=== PATIENT | male | born 1945 | race Caucasian/White ===

== ENCOUNTER 2016-07-28 23:50 | Inpatient (IN) | payer MEDICARE, OTHER ==
[~2016-07-28] VITALS: Ht 195.6 cm; Wt 127.0 kg
[~2016-07-28 23:50] MED LIST: ASPI-727; CILO100T; INSU100C3; INSU100C5; METO-448; VICES
[2016-07-29] VITALS (12 sets, daily range): BP systolic 106–136; BP diastolic 59–67; PULSE 36–54; RESP 18–22; TEMP 97.4; Ht 195.6 cm; Wt 127.0 kg
[2016-07-29 00:57] LABS: ADD SCAN DIFF NO
[2016-07-29 00:58] LABS: BASOPHILS % 0.5 % (0.0-2.0); EOSINOPHILS # 0.1 10^3/ul (0.0-0.5); EOSINOPHILS % 1.8 % (0.0-7.0); HEMATOCRIT 43.5 % (42.0-52.0); HEMOGLOBIN 13.6 g/dl (14.0-18.0); LYMPHOCYTES # 1.7 10^3/ul (0.8-2.9); LYMPHOCYTES % 30.5 % (15.0-51.0); MEAN CORPUSCULAR HEMOGLOBIN 31.2 pg (29.0-33.0); MEAN CORPUSCULAR HGB CONC 31.3 g/dl (32.0-37.0); MEAN CORPUSCULAR VOLUME 99.8 fl (82.0-101.0); MEAN PLATELET VOLUME 12.2 fl (7.4-10.4); MONOCYTE # 0.5 10^3/ul (0.3-0.9); MONOCYTES % 9.1 % (0.0-11.0); NEUTROPHIL # 3.3 10^3/ul (1.6-7.5); NEUTROPHILS % 57.7 % (39.0-77.0); PLATELET COUNT 164 10^3/UL (140-415); RED BLOOD COUNT 4.36 10^6/ul (4.70-6.10); RED CELL DISTRIBUTION WIDTH 14.6 % (11.5-14.5); WHITE BLOOD COUNT 5.7 10^3/ul (4.8-10.8)
[2016-07-29] MEDS ORDERED: ACET650S21 G-TUBE (01:04)
[2016-07-29] MEDS ORDERED: VALP250S3 GTB (01:04)
[2016-07-29] MEDS ORDERED: MIDO5TAB19 G-TUBE (01:04)
[2016-07-29] MEDS ORDERED: LEVO175T6 G-TUBE (01:04)
[2016-07-29] MEDS ORDERED: DOCU-159 G-TUBE (01:04)
[2016-07-29] MEDS ORDERED: TRAV4OP25 BOTH EYES (01:04)
[2016-07-29] MEDS ORDERED: BRIM10DR12 BOTH EYES (01:04)
[2016-07-29] MEDS ORDERED: SENN-36 G-TUBE (01:04)
[2016-07-29 01:15] LABS: INR 0.99; PARTIAL THROMBOPLASTIN TIME 29.2 Sec (25.0-35.0); PROTIME 13.1 Sec (12.2-14.2)
[2016-07-29 01:17] LABS: ALBUMIN 3.8 g/dl (3.3-4.9); CHLORIDE 107 mmol/L (97-110)
[2016-07-29 01:18] LABS: POTASSIUM 4.3 mmol/L (3.5-5.1); SODIUM 144 mmol/L (135-144)
[2016-07-29 01:20] LABS: ALBUMIN/GLOBULIN RATIO 0.84; ALKALINE PHOSPHATASE 84 IU/L (42-121); ANION GAP 17 (8-16); ASPARTATE AMINO TRANSFERASE 32 IU/L (15-46); BILIRUBIN,INDIRECT 0.5 mg/dl (0-1.1); BILIRUBIN,TOTAL 0.5 mg/dl (0.2-1.3); BLOOD UREA NITROGEN 26 mg/dl (7-20); CARBON DIOXIDE 24 mmol/L (21-31); CREATININE 0.78 mg/dl (0.61-1.24); GLUCOSE 90 mg/dl (70-220); TOTAL PROTEIN 8.3 g/dl (6.1-8.1)
[2016-07-29 01:21] LABS: ALANINE AMINOTRANSFERASE 39 IU/L (13-69); CALCIUM 9.4 mg/dl (8.4-10.2)
[2016-07-29 01:31] LABS: B-TYPE NATRIURETIC PEPTIDE 503 PG/ML (0-125)
[2016-07-29 01:44] LABS: TROPONIN-I < 0.012 ng/ml (0.00-0.12)
[2016-07-29 01:47] LABS: AADO2 Arterial 144.1 mmHg (7.0-24.0); Allen Test ACCEPTAB; Arterial Base Excess -2.2 mmol/L (-3.0-3); Arterial COHb 0.1 % (0.0-3.0); Arterial Fraction of Oxyhgb 97.4 % (93.0-99.0); Arterial HCO3 20.8 mmol/L (22.0-26.0); Arterial MetHb 0.3 % (0.0-1.5); Arterial Total Hemglobin 14.6 g/dl (12.0-18.0); MODE VENT - AC
--- NOTE | 2016-07-29 01:55 | RADRPT ---
PROCEDURE: XR Chest. CLINICAL INDICATION: Chest pain. TECHNIQUE: Single frontal chest x-ray. COMPARISON: None. FINDINGS: Tracheostomy tube tip is just above the level of the clavicles. Heart is enlarged.. There is hypov entilation. There is right greater than left basilar atelectasis versus infiltrate.. There are prob able calcified nodule/granulomas in the left upper lobe. There is no pleural effusion. There is no pneumothorax. The osseous structures are unremarkable. IMPRESSION: Cardiomegaly. Hypoventilation. Right greater than left basilar atelectasis versus infiltrate. Pr obable left upper lobe calcified granulomas. RPTAT: HMVK .Hira Arias MD, MD Date Time Electronically viewed and signed by .Hira Arias MD, on 07/29/2016 01:55 .K/
--- NOTE | 2016-07-29 02:25 | ERA ---
ER Documentation Chief Complaint Date/Time DATE: 07/29/16 TIME: 02:23 Chief Complaint SENT BY [facility] FOR NEW ONSET AFIB W/BRADYCARDIA HPI This is a 71-year-old male trach to vent patient is [facility] for new onset atrial fibrillation with bradycardia. According to transfer sheet, they noticed irregular heart rate. Got they acquire an EKG which showed this rhythm. Patient himself cannot provide any relevant history. History is per EMS run sheet. ROS All systems reviewed and are negative except as per history of present illness. Medications Home Meds Reported Medications Acetaminophen (MAPAP) 650 Mg/20.3 Ml Solution, G-TUBE Q6H for PAIN 07/29/16 Midodrine* (Midodrine*) 5 Mg Tablet, 5 MG G-TUBE TID for HYPOTENSION, TAB HOLD SBP > 120 07/29/16 Brimonidine Tartrate* (Brimonidine Tartrate*) 0.15%-10ML Drop Opht, 1 DROP BOTH EYES Q8 for GLAUCOMA, #1 EA INSTILL ONE DROP ON BOTH EYES 07/29/16 Levothyroxine Sodium* (Levothyroxine Sodium*) 175 Mcg Tablet, 175 MCG G-TUBE BEFORE BREAKFAST for HYPOTHYROIDISM, #30 TAB 07/29/16 Valproic Acid* (Depakene*) 250 Mg/5 Ml Udc Syrup, 500 MG GTB Q12 for SEIZURE DISORDER, ML 07/29/16 Sennosides* (Senokot*) 8.6 Mg Tablet, 1 TAB G-TUBE QHS for SLUGGISH BOWEL, TAB 07/29/16 Travoprost* (Travatan*) 0.004%-2.5 Ml Opht, 1 DROP BOTH EYES QHS for GLAUCOMA, # 1 BOTTLE 07/29/16 Docusate Sodium* (Docusate Sodium*) 100 Mg Capsule, 100 MG G-TUBE DAILY for SLUGGISH BOWEL, #30 CAP 07/29/16 Aspirin (Adult Aspirin) 81 Mg Tab.chew 07/12/10 Acetaminophen/Hydrocodone (Vicodin Es) 1 Tab Tab 07/12/10 Discontinued Reported Medications Insulin Aspart (Novolog) 100 U/Ml Cartridge 07/12/10 Insulin Glargine,Hum.rec.anlog (Lantus) 100 U/Ml Cartridge 07/12/10 Cilostazol* (Cilostazol*) 100 Mg Tablet 07/12/10 Metoprolol Tartrate* (Lopressor*) 25 Mg Tab 07/12/10 Allergies Allergies: Coded Allergies: No Known Drug Allergies (Verified Allergy, Unknown, 07/29/16) PMhx/Soc History of Surgery: Yes (FEEDING TUBE PLACEMENT) Anesthesia Reaction: No (UNKNOWN) Hx Neurological Disorder: Yes (CVA) Hx Respiratory Disorders: Yes (COPD) Hx Cardiac Disorders: No Hx Psychiatric Problems: Yes (DEMENTIA, PSYCHOSIS, DEPRESSION) Hx Miscellaneous Medical Probl: Yes (SEPTIC SHOCK AND ANEMIA) Hx Alcohol Use: No Hx Substance Use: No Hx Tobacco Use: No Smoking Status: Never smoker Physical Exam Vitals Vital Signs Date Time Temp Pulse Resp B/P Pulse Ox O2 Delivery O2 Flow Rate FiO2 07/29/16 02:01 52 18 100 40 07/29/16 01:54 46 18 106/52 100 Mechanical Ventilator 07/29/16 00:15 43 18 100 40 07/29/16 00:04 97.0 45 18 141/66 100 Physical Exam Const: [] Head: Atraumatic Eyes: Normal Conjunctiva ENT: Trach site is clean dry and intact Neck: Full range of motion..~ No meningismus. Resp: Clear to auscultation bilaterally Cardio: Regular rate and rhythm, no murmurs Abd: Soft, non tender, non distended. Normal bowel sounds Skin: No petechiae or rashes Back: No midline or flank tenderness Ext: No cyanosis, or edema Neur: Awake and alert Psych: Normal Mood and Affect Result Diagram: 07/29/16 0030 07/29/16 0030 Results 24 hrs Laboratory Tests Test 07/29/16 00:30 07/29/16 00:45 White Blood Count 5.710^3/ul Red Blood Count 4.3610^6/ul Hemoglobin 13.6g/dl Hematocrit 43.5% Mean Corpuscular Volume 99.8fl Mean Corpuscular Hemoglobin 31.2pg Mean Corpuscular Hemoglobin Concent 31.3g/dl Red Cell Distribution Width 14.6% Platelet Count 31901^3/UL Mean Platelet Volume 12.2fl Neutrophils % 57.7% Lymphocytes % 30.5% Monocytes % 9.1% Eosinophils % 1.8% Basophils % 0.5% Nucleated Red Blood Cells % 0.0/100WBC Neutrophils # 3.310^3/ul Lymphocytes # 1.710^3/ul Monocytes # 0.510^3/ul Eosinophils # 0.110^3/ul Basophils # 0.010^3/ul Nucleated Red Blood Cells # 0.010^3/ul Prothrombin Time 13.1Sec Prothrombin Time Ratio 1.0 INR International Normalized Ratio 0.99 Activated Partial Thromboplast Time 29.2Sec Sodium Level 144mmol/L Potassium Level 4.3mmol/L Chloride Level 107mmol/L Carbon Dioxide Level 24mmol/L Anion Gap 17 Blood Urea Nitrogen 26mg/dl Creatinine 0.78mg/dl Glucose Level 90mg/dl Calcium Level 9.4mg/dl Total Bilirubin 0.5mg/dl Direct Bilirubin 0.00mg/dl Indirect Bilirubin 0.5mg/dl Aspartate Amino Transf (AST/SGOT) 32IU/L Alanine Aminotransferase (ALT/SGPT) 39IU/L Alkaline Phosphatase 84IU/L Troponin I < 0.012ng/ml B-Type Natriuretic Peptide 503PG/ML Total Protein 8.3g/dl Albumin 3.8g/dl Globulin 4.50g/dl Albumin/Globulin Ratio 0.84 Blood Gas Specimen Source Blood arterial Arterial Blood Date Drawn 07/29/2016 1:40:47 AM Arterial Blood pH (Temp corrected) 7.445 Arterial Blood pCO2 (Temp correct) 30.9mmhg Arterial Blood pO2 (Temp corrected) 105.6mmHG Arterial Blood HCO3 20.8mmol/L Arterial Blood Base Excess -2.2mmol/L Arterial Blood Oxygen Saturation 97.8mmHG Yeison Test ACCEPTAB Arterial Blood Gas Puncture Site Right Radial Arterial Blood Carboxyhemoglobin 0.1% Arterial Blood Methemoglobin 0.3% Blood Gas A-a O2 Differential 144.1mmHg Oxyhemoglobin Percent 97.4% Total Hemoglobin 14.6g/dl Blood Gas Temperature 37.0C Blood Gas Respiration Rate 18.0 Blood Gas Actual Respiration Rate 18 Blood Gas Modality VENT - AC FiO2 40.0% Blood Gas Tidal Volume 650.0mL Blood Gas Low PEEP Setting 5.0cmH2O Blood Gas Notified Whom MG Blood Gas Notified Time 07/29/2016 1:47:16 AM Procedures/MDM EKG: Rate/Rhythm: Bradycardic rate, irregular rhythm QRS, ST, T-waves: Variable CA intervals upgoing T waves Impression: Atrial fibrillation with slow ventricular response Chest X-ray 1V Interpreted by me: Soft Tissue: No acute abnormalities Bones: No acute abnormalities Mediastinum/Cardiac Silhouette/Lungs: No acute abnormalities Patient's symptoms are concerning for cardiac cause will require inpatient workup and continuous monitoring. Further w/u for ischemia, arrhythmia, PE or dissection will be deferred to the inpatient team. Accepting Care Team: Current data and ongoing care discussed. Time: 2:20 AM Primary Provider: Dr. Castorena (davis construction administrative assistant) Consulting: Per inpatient team Outstanding Data: none Departure Diagnosis: Primary Impression: Atrial fibrillation with slow ventricular response Condition: Serious GAYATHRI RAMOS July 29, 2016 02:25
--- NOTE | 2016-07-29 12:50 | QN ---
Documentation Comment Observation Note: Time: 4 hours Family Hx: Negative for diabetes Evaluation: Multiple exams showed improving symptoms and no evidence of clinical decompensation. IVETTE PANDEY MD July 29, 2016 12:50
[2016-07-29] MEDS ORDERED: ACETAMINOPHEN 650MG/20.3ML CUP GTB PRN (17:30)
[2016-07-29] MEDS: SOD CHLORIDE 0.9% 1,000 ML IV SCH (18:00)
[2016-07-29 18:26] LABS: FREE T3 3.86 pg/ml (2.77-5.27)
[2016-07-29 18:39] LABS: THYROID STIMULATING HORMONE 1.53 MIU/L (0.465-4.680)
[2016-07-29] MEDS: SENNA TAB GTB SCH (21:28)
[2016-07-29] MEDS: BRIMONIDINE 0.15% 5 ML OPH BOTH EYES SCH (21:29)
[2016-07-29] MEDS: LATANOPROST 0.005% 2.5 ML OPH BOTH EYES SCH (21:29)
[2016-07-29] MEDS: VALPROIC ACID LIQUID CUP 250 MG/5 ML CUP GTB SCH (21:29)
[2016-07-29] MEDS: MIDODRINE 5 MG TAB GTB SCH (21:29)
[2016-07-30] VITALS (23 sets, daily range): BP systolic 96–105; BP diastolic 54–63; PULSE 38–48; RESP 18–20
[2016-07-30] MEDS: MIDODRINE 5 MG TAB GTB SCH ×3 (06:15→21:30)
[2016-07-30] MEDS: BRIMONIDINE 0.15% 5 ML OPH BOTH EYES SCH ×3 (06:16→21:25)
[2016-07-30] MEDS: LEVOTHYROXINE 175 MCG TAB GTB SCH (06:17)
[2016-07-30 08:09] LABS: CREATININE 0.8 mg/dl (0.61-1.24)
[2016-07-30] MEDS: DOCUSATE SODIUM 10 MG/ML (10ML CUP) GTB SCH (09:00)
[2016-07-30] MEDS: VALPROIC ACID LIQUID CUP 250 MG/5 ML CUP GTB SCH ×2 (09:23→21:25)
[2016-07-30] MEDS: SOD CHLORIDE 0.9% 1,000 ML IV SCH (13:05)
[2016-07-30] MEDS: 1/2 NS + KCL 20 MEQ 1,000 ML IV SCH (14:17)
--- NOTE | 2016-07-30 14:41 | HP ---
DATE OF ADMISSION: 07/29/2016 The patient was sent from [facility] for new onset of atrial fibrillation with slow cody tricular response and bradycardia. HISTORY OF PRESENT ILLNESS: The patient is a 71-year-old gentleman who is nonverbal at baseline and most of the history was obtained from medical records and talking to the nursing staff. The patien t with past medical history of CVA, dementia with psychosis, depression, COPD, ventilator-dependent respiratory failure with tracheostomy, and dysphagia with G-tube. The patient is nonverbal at [facility], and on evaluation in the emergency room, the patient noted to have atrial fibrillation and slow ventricular response. The heart rate varies from 36 to 50. The patient also had variations in blo od pressure from systolic 90s to 140s; however, currently it is stable. The patient did not have an y leukocytosis. IMAGING: Chest x-ray revealed cardiomegaly, hypoventilation, right greater than left basilar atelec tasis versus infiltrate. Probable left lower lobe calcified granulomas. There is no nausea, vomiti ng reported. No fever. The patient is admitted for further evaluation and management to telemetry floor. PAST MEDICAL HISTORY: Per HPI. PAST SURGICAL HISTORY: Status post tracheostomy, status post G-tube placement. Incomplete data. SOCIAL HISTORY: The patient is a resident of nursing home facility. No current tobacco use, alc ohol use, or illicit drug use reported. ALLERGIES: NO KNOWN DRUG ALLERGIES. MEDICATIONS ON ADMISSION: 1. Tylenol. 2. Midodrine. 3. Levothyroxine. 4. Valproic acid. 5. Senokot. 6. Travatan. 7. Colace. 8. Aspirin. 9. Vicodin. 10. Brimonidine tartrate. REVIEW OF SYSTEMS: A 12-point review of systems negative unless what is mentioned in the HPI. PHYSICAL ASSESSMENT: GENERAL: Well-developed, obese gentleman, currently on ventilatory support, opens eyes. Does not f ollow any commands. VITAL SIGNS: Temperature is 98.0, pulse is 39, blood pressure 106/59, respiratory rate 18, oxygen s aturation is 100% on 40% FIO2. HEENT: Head is atraumatic, normocephalic. Pupils equal, round, reactive to light and accommodation . Oral mucosa is pink and moist. NECK: Supple, no cervical lymphadenopathy, no thyromegaly. There is a tracheostomy at the base of the neck. CARDIOVASCULAR: Lung sounds are slightly diminished at the bases. Clear in the upper lobes. There are no rhonchi, wheezes, rales noted. CHEST: Lung sounds are diminished at the bases. Clear in the upper lobes. There are no rhonchi, w heezes, rales noted. CARDIOVASCULAR: Irregularly irregular rate, variable S1. No murmurs, gallops, clicks, rubs noted. ABDOMEN: Protuberant, soft, nondistended, nontender. G-tube with intact stoma. EXTREMITIES: No edema, clubbing, cyanosis. SKIN: No rash, petechiae noted. NEUROLOGIC: The patient is awake, does not follow any commands. Contractured extremities. LABORATORY DATA: On admission, CBC: White blood cells 5.7, hemoglobin 13.6, hematocrit 43.5, plate lets 164. Chemistry: Sodium is 144, potassium 4.3, chloride 107, carbon dioxide 24, anion gap 17, BUN is 26, creatinine 0.70. AST 32, ALT is 79, alkaline phosphatase 84, troponin less than 0.012. BNP is 503. ASSESSMENT AND PLAN: Atrial fibrillation with slow ventricular response. Admit patient on telemetr y floor. We will obtain a 2-D echo and evaluation of ejection fraction. Will hold all cherie blocki ng agents. Dr. Branch is asked to see patient in cardiology consultation. 2. Hypothyroidism. Will obtain a TSH and T4. Continue current dose of Synthroid. 3. Seizure disorder. Continue valproic acid. 4. History of cerebrovascular accident. Continue aspirin. 5. Ventilator-dependent respiratory failure. Continue pulmonary toilet and bronchodilators. Dr. Radha tanner will be following the patient in pulmonology consultation. 6. Dysphagia with G-tube. Continue G-tube feeding, monitor residual. 7. History of chronic obstructive pulmonary disease. 8. Will continue Lovenox for deep venous thrombosis prophylaxis and Protonix for peptic ulcer disea se prophylaxis. Further recommendations based on clinical course. Plan of care discussed with Dr. Floyd. Dictated By: BRAYAN HUDSON CHARTER REPRESENTATIVE for HALLE FLOYD MD, SR/NTS Conf#: [id number] DID#: [id number]
--- NOTE | 2016-07-30 16:06 | HP ---
DATE OF ADMISSION: 07/30/2016 [facility] COMPLAINT AND HISTORY OF PRESENT ILLNESS: History is obtained from medical record as the patie nt is nonverbal. The patient is a 71-year-old gentleman with a history of anoxic encephalopathy, ch ronic ventilator-dependent respiratory failure, hypothyroidism, seizure disorder, dysphagia, glaucom a, and chronic hypotension. The patient was noted to have heart rate varying between the low 40s to low 100s and stat EKG was done at subacute unit, and the patient was noted to have a new onset of a trial fibrillation. The patient was sent to [facility] ER for further evaluation and manag ement. The patient did not have any recent seizure, no reported fever or chills. No reported vomit ing, no reported bleeding from any site. The patient at baseline is nonverbal and is vent-dependent . No reported acute skin rash or acute joint swelling, no reported wheezing. No reported recent vo miting or diarrhea. No reported abdominal distention. The patient was seen in the ER and was noted to be in atrial fibrillation. The patient's EKG done in the ER revealed AFib with slow ventricular response. The patient hemodynamically remained stable. ABG was done in the ER which revealed pH o f 7.4, pCO2 of 38.9, pO2 100.5. The patient's potassium was 4.3, BUN was 26. White count was 5.7, hemoglobin 13.6. The patient also had a chest x-ray done which was positive for basilar atelectasis . The patient is being admitted for further evaluation and management. PAST MEDICAL HISTORY: As stated above. PAST SURGICAL HISTORY: The patient is status post tracheostomy and G-tube placement. SOCIAL HISTORY: Not available. ALLERGIES: NONE. MEDICATION LIST: From subacute unit revealed the patient to be on: 1. Eyedrops for glaucoma. 2. Midodrine for chronic hypertension. 3. Aspirin. 4. Depakote. 5. Levoxyl. PHYSICAL EXAMINATION: GENERAL: Reveals the patient to be nonverbal. VITAL SIGNS: Upon arrival to ER, temperature 97, pulse 45, blood pressure 141/63, O2 100% on FIO2 o f 40%. HEENT: No eye discharge or redness. Atraumatic, normocephalic head. Extraocular movements could n ot be tested as the patient is nonverbal. Nose and ears normal externally. Oropharynx grossly unre markable. Suboptimal exam as the patient is nonverbal. NECK: Tracheostomy placed, mild secretions. No mass. CHEST: Reveals diminished air entry at the bases. No use of accessory muscles. CARDIOVASCULAR: S1, S2 normal. No murmur, gallop, or rub. ABDOMEN: Soft, nontender, obese. G-tube in place. EXTREMITIES: Trace generalized edema. NEUROLOGIC: The patient is lethargic and nonverbal. No spontaneous movement. The patient's extrem ities are contracted. SKIN: Without acute rash. LABORATORY DATA: WBC 5.7, hemoglobin 13.6, platelets 164. Sodium 144, potassium 4.3, BUN 26, creat inine 0.7, glucose 90, AST 32, ALT 39, alkaline phosphatase 84. BNP 503. Albumin 3.8. TSH 1.5, fr ee T4 13.3, free T3 3.8. IMPRESSION: 1. New-onset of atrial fibrillation with slow ventricular response. 2. Mild acute kidney injury. 3. Anoxic encephalopathy. 4. Vent-dependent respiratory failure. 5. Hypothyroidism. 6. Glaucoma. 7. Dysphagia. PLAN: The patient will be continued on current vent setting, will be given breathing treatment, and will continue Synthroid at current dose since the patient's TSH is within normal limits. Will cont inue G-tube feeding and glaucoma drops. Will continue Depakote for seizures. Will obtain echocardi ogram to assess LV function and valvular function. Will also obtain cardiology evaluation. The pat ient hemodynamically is stable. Will give IV fluids. Further recommendation will depend on the patient's hospital course. Prognosis is poor for any mean ingful recovery. Dictated By: HALLE GAMBLE/VONDA Conf#: [id number] DID#: [id number]
--- NOTE | 2016-07-30 17:51 | CONS ---
DATE OF ADMISSION: 07/30/2016 DATE OF CONSULTATION: 07/30/2016 REASON FOR CONSULTATION: Bradyarrhythmia. REQUESTING PHYSICIAN: Mode Pierre MD HISTORY OF PRESENT ILLNESS: Mr. Esquivel is a 71-year-old male with a history of anoxic encephalop athy, chronic vent dependent respiratory failure, hypothyroidism, seizure disorder, dysphagia status post G-tube, glaucoma, chronic hypertension on Midodrine who was noted to have bradycardia on his u nit and underwent EKG analysis which reportedly revealed atrial fibrillation. The patient was trans ferred to [facility] for further evaluation and treatment. Upon arrival, temperat ure of 97, blood pressure 140/66, pulse 45, respiratory rate 18, saturating 100%. The patient's lab s were notable for white blood cell count of 5.7, hemoglobin 13.6, platelet count 164, a sodium 144, potassium 4.3, creatinine 0.7, BUN 26. Troponin negative. BNP of 503, TSH 1.53. INR 0.99. The p atient underwent a chest x-ray revealing cardiomegaly, hypoventilation, right greater than left basi lar atelectasis versus infiltrate and left upper lobe calcified granulomas. The patient's electroca rdiogram reveals rhythm regarded by artifact the most probable consistent with sinus bradycardia at a rate of approximately 40 with normal axis, increased QT corrected interval and nonspecific ST-T ab normalities diffusely. Patient subsequently admitted to telemetry and since admit to telemetry and monitor closely with heart rates in the 40s chronically, some episodes to the 50s. The patient's bl ood pressures have been in the low 100s on ongoing management and treatment. PAST MEDICAL HISTORY: As above in HPI. MEDICATIONS CURRENTLY IN HOSPITAL: 1. Lovenox 30 mg subq daily. 2. Protonix 40 mg IV daily. 3. Colace. 4. Synthroid 75 mcg daily. 5. Midodrine 5 mg p.o. q.8h. 6. Xalatan eye drops both eyes at bedtime. 7. Depakene 500 q.12h. ALLERGIES: NO KNOWN DRUG ALLERGIES. SOCIAL HISTORY: No tobacco, ETOH or illicit drug use. FAMILY HISTORY: No history of sudden cardiac or early CAD. REVIEW OF SYSTEMS: As above in HPI. CONSTITUTIONAL: No current fevers. PULMONARY: Chronic respiratory failure: Status post tracheostomy. GASTROINTESTINAL: Dysphagia, status post G-tube. GENITOURINARY: No hematuria. MUSCULOSKELETAL: Degenerative joint disease. PSYCHIATRIC: No documented psych history. NEUROLOGIC: Anoxic encephalopathy. PHYSICAL EXAMINATION: VITAL SIGNS: Temperature of 98.2, blood pressure most recently 102/54, pulse 40/90 to 98%. GENERAL: The patient is encephalopathic. NECK: Tracheostomy in place. CHEST: Upper airway transmitted rhonchorous sounds. HEART: Bradycardic, regular rhythm, normal S1, S2, I/ systolic murmur, nondisplaced PMI. ABDOMEN: Positive bowel sounds, soft. EXTREMITIES: No pitting edema, 1+ pulses bilaterally, posterior tibial. LABORATORIES: As above in HPI, with most recent from today, sodium 140, potassium 4.0, creatinine 0 .8, BUN 27. IMAGING STUDIES: As above in HPI. No further imaging studies for my review at this time. ECG: As above in HPI. No further electrocardiograms for my review at this time. IMPRESSION: 1. Bradycardia with EKG and telemetry, most consistent with sinus bradycardia at this time. 2. Questionable paroxysmal atrial fibrillation and from EKG reportedly done at [facility] y. 3. Abnormal electrocardiogram with nonspecific ST-T abnormalities, assess for acute coronary syndro me. 4. Hypotension, chronic on Midodrine. 5. Respiratory failure, chronic, status post tracheostomy. 6. Dysphagia status post G-tube. 7. History anoxic encephalopathy. 8. History of hypothyroidism with currently normal TSH. 9. Anemia, mild. RECOMMENDATIONS: 1. At this time, would maintain the patient on telemetry monitoring to follow rhythm and rate contr ol closely. 2. Would continue the patient's blood pressure support with Midodrine and will check a 2D echocardi ogram to further assess patient's ejection fraction, wall motion. Rule any major valve abnormalitie s. 4. Will consider the possibility of permanent pacemaker implantation in this patient hypotension a nd bradycardia, but will additionally weigh this against the patient's chronic encephalopathic state . 5. Complete a rule out for myocardial infarction to ensure that the patient's EKG abnormalities are chronic in nature and not due to any recent acute coronary syndrome. 6. Check a fasting lipid panel for general risk stratification. 7. Continue to follow the patient's blood pressure response status closely. Thank you for allowing me to take part in the care of this patient. I will continue to follow along very closely with you. Further recommendations will be made as the patient progresses through his inpatient hospital clinical course. Dictated By: YUSUF MCCAIN/VONDA Conf#: [id number] DID#: [id number] CC: MODE PIERRE MD;*EndCC*
--- NOTE | 2016-07-30 20:17 | RADRPT ---
Echocardiogram Report Patient Name: VINICIO KWONG Gender: Male Date: 1945 Study Date: 30-Jul-2016 Revenue Specialist: [facility] Location: 532 Ref. Physician: HALLE FLOYD Quality: Technically Difficult Study Procedures: Transthoracic echocardiogram with complete 2D, M-Mode, and doppler examination. Indications: Bradycardia. 2D/M Mode Doppler Measurement Value Normal Ranges Measurement Value Normal Ranges LVIDd 2D 5.8 3.5 - 5.6 cm AV Peak Roberth 1.1 m/sec LVIDs 2D 2.3 2.1 - 4.1 cm AV Peak PG 5.3 mmHg LVPWd 2D 1.1 0.6 - 1.1 cm LVOT Peak Roberth 0.9 m/sec IVSd 2D 1.1 0.6 - 1.1 cm LVOT Peak PG 3.6 mmHg AoR Diam 2D 3.8 2.0 - 3.7 cm MV E Peak Roberth 0.3 m/sec EDV 2D 165.6 cm3 MV A Peak Roberth 0.4 m/sec ESV 2D 12.6 cm3 MV E/A 0.7 LA Dimen 2D 4.5 2.3 - 4.0 cm MV Decel Time 222 msec MV Decel [place] 1 MV E/A 0.7 TR Peak Roberth 2.0 m/sec TR Peak PG 16.8 mmHg Findings Left Ventricle: Normal left ventricular systolic function. Normal left ventricular cavity size. Left ventricular wall thickness upper limits of normal. Ejection fraction is visually estimated at 5560 %. Tissue Doppler/Mitral Doppler indices are consistent with impaired relaxation (Stage I diastolic dysfunction). Right Ventricle: Normal right ventricular size. Normal right ventricular systolic function. Left Atrium: There is mild enlargement of left atrium. Right Atrium: The right atrium is normal in size. Mitral Valve: Mitral valve leaflets appear mildly thickened. Mild mitral annular calcification. Trace mitral regurgitation. Aortic Valve: Normal appearance of the aortic valve. No significant aortic stenosis or insufficiency. Tricuspid Valve: Tricuspid valve not well visualized. There is trace tricuspid regurgitation. Pulmonic Valve: Pulmonic valve not well visualized. There is trace pulmonic regurgitation. Pericardium: Normal pericardium with no significant pericardial effusion. Aorta: Normal aortic root. IVC: Inferior vena cava without respiratory collapse, however, patient on ventilator. Conclusions 1.Normal left ventricular systolic function. Normal left ventricular cavity size. Left ventricular wall thickness upper limits of normal. Ejection fraction is visually estimated at 55-60 %. Tissue Doppler/Mitral Doppler indices are consistent with impaired relaxation (Stage I diastolic dysfunction). 2.There is mild enlargement of left atrium. 3.Trace mitral regurgitation. 4.There is trace tricuspid regurgitation. 5.There is trace pulmonic regurgitation. Electronically Signed By: Randy Branch 30-Jul-2016 20:17:04 -0700 Patient Name: VINICIO KWONG Study Date: 30-Jul-2016 [id number]
[2016-07-30] MEDS: SENNA TAB GTB SCH (21:00)
[2016-07-30] MEDS: LATANOPROST 0.005% 2.5 ML OPH BOTH EYES SCH (21:25)
[2016-07-31] VITALS (24 sets, daily range): BP systolic 94–122; BP diastolic 46–65; PULSE 40–60; RESP 18–20
[2016-07-31] MEDS: BRIMONIDINE 0.15% 5 ML OPH BOTH EYES SCH ×3 (05:14→21:54)
[2016-07-31] MEDS: MIDODRINE 5 MG TAB GTB SCH ×3 (05:14→22:02)
[2016-07-31] MEDS: LEVOTHYROXINE 175 MCG TAB GTB SCH (05:15)
[2016-07-31] MEDS: PANTOPRAZOLE 40 MG INJ IV SCH (05:20)
[2016-07-31] MEDS: 1/2 NS + KCL 20 MEQ 1,000 ML IV SCH (09:58)
[2016-07-31] MEDS: DOCUSATE SODIUM 10 MG/ML (10ML CUP) GTB SCH (09:58)
[2016-07-31] MEDS: VALPROIC ACID LIQUID CUP 250 MG/5 ML CUP GTB SCH ×2 (09:58→21:54)
[2016-07-31] MEDS: ENOXAPARIN 30 MG/0.3 ML SYG SC SCH (10:04)
--- NOTE | 2016-07-31 11:13 | CONS ---
DATE OF ADMISSION: 07/30/2016 DATE OF CONSULTATION: TYPE OF CONSULTATION: Pulmonary consult. REASON FOR CONSULTATION: Ventilator management. Thank you, Dr. Pierre, for this consultation. HISTORY OF PRESENT ILLNESS: This is a 71-year-old gentleman with multiple medical problems includin g vent-dependent respiratory failure, anoxic encephalopathy, history of dysphagia, G-tube and seizur e disorder, found to have variable heart rate in the subacute facility ranging from 40s to 100s with intermittent atrial fibrillation, sent to [facility] for further evaluation. The patient remains nonverbal at his baseline neurological status, and was noted to be in rate controll ed atrial fibrillation in the emergency room. PAST MEDICAL HISTORY: 1. Anoxic brain injury. 2. Vent dependent respiratory failure. 3. Dysphagia with G-tube. 4. History of renal insufficiency. 5. Seizure disorder. MEDICATIONS: Per chart. ALLERGIES: NONE. SOCIAL HISTORY: Nonsmoker, no alcohol, no history of drug use. FAMILY HISTORY: Noncontributory. SYSTEMS REVIEW: A 12-point review of systems unable to perform. PHYSICAL EXAMINATION: GENERAL: Chronically ill appearing gentleman, appears comfortable at rest, no acute distress. VITAL SIGNS: Currently afebrile, pulse is 56, blood pressure 122/60, O2 saturation 96%, FIO2 of 40% . NECK: Trach site clean and intact. CARDIAC: S1, S2, no added sounds or murmurs. CHEST: Diminished air entry bilaterally. ABDOMEN: Soft, nontender. No guarding or rebound. EXTREMITIES: No cyanosis, clubbing. Edema +1. NEUROLOGIC: Generalized weakness. LABORATORY DATA: White count 5.7, hemoglobin 13.6, platelets 164. BUN 27, creatinine 0.8. INR 0.9 9. ABG: pH 7.44, pCO2 of 30, PaO2 105, bicarbonate is 20.8. IMPRESSION AND PLAN: 1. Ventilator dependent respiratory failure. 2. Possible tachybrady syndrome with sick sinus syndrome. 3. History of ventilator-dependent respiratory failure. 4. Anoxic encephalopathy. 5. Dysphagia with G-tube. The patient will require: 1. Continued mechanical ventilation. 2. Echocardiogram and cardiology consultation. 3. DVT and GI prophylaxis. 4. Continue tube feeding as tolerated. 5. Hold all medications that may affect his bradycardia. 6. Given the patient's chronic illness and neurological status, permanent pacemaker may not be the best option. Dictated By: KINGS INTERIANO/VONDA Conf#: [id number] DID#: [id number]
--- NOTE | 2016-07-31 14:42 | PN ---
Date/Time of Note Date/Time of Note DATE: 07/31/16 TIME: 14:39 Assessment/Plan VTE Prophylaxis VTE Prophylaxis Intervention: LMWH, other Lines/Catheters IV Catheter Type (from Nrs): Peripheral IV Urinary Cath still in place: Yes Assessment/Plan Assessment/Plan 1. New-onset of atrial fibrillation with slow ventricular response. - per cardio - possible plan for pacemaker placement 2. Mild acute kidney injury - resolved 3. Anoxic encephalopathy. 4. Vent-dependent respiratory failure. - per pulmonary 5. Hypothyroidism. 6. Glaucoma. 7. Dysphagia. - GT feeding - aspiration precautions Further recommendation will depend on the patient's hospital course. Prognosis is poor for any meaningful recovery. Exam/Review of Systems Vital Signs Vitals Vital Signs Date Time Temp Pulse Resp B/P Pulse Ox O2 Delivery O2 Flow Rate FiO2 07/31/16 13:20 61 18 98 40 07/31/16 11:38 98.3 101/54 07/29/16 15:24 Mechanical Ventilator Trach Collar Intake and Output 07/30/16 07/30/16 07/31/16 15:00 23:00 07:00 Intake Total 900 ml 2000 ml Balance 900 ml 2000 ml Exam Neck: non-tender Respiratory: diminished breath sounds Cardiovascular: nl pulses Gastrointestinal: non-tender, soft Extremities: normal pulses Lymph: nontender Results Result Diagram: 07/29/16 0030 07/30/16 0600 Medications Medications Current Medications Acetaminophen (Tylenol Liquid) 650 mg Q6H PRN GTB PAIN; Start 07/29/16 at 17:30 Brimonidine Tartrate (Alphagan P 0.15%) 1 drop Q8 BOTH EYES Last administered on 07/31/16 13:31; Admin Dose 1 DROP; Start 07/29/16 at 22:00 Docusate Sodium (Colace Liquid Cup) 100 mg DAILY GTB Last administered on 09:58; Admin Dose 100 MG; Start 07/30/16 at 09:00 Midodrine (Proamatine) 5 mg Q8 GTB Last administered on 07/31/16 13:31; Admin Dose 5 MG; Start 07/29/16 at 22:00 Senna (Senokot) 1 tab QHS GTB Last administered on 07/29/16 21:28; Admin Dose 1 TAB; Start 07/29/16 at 21:00 Latanoprost (Xalatan) 1 drop QHS BOTH EYES Last administered on 07/30/16 21:25 ; Admin Dose 1 DROP; Start 07/29/16 at 21:00 Valproate Sodium 500 mg 500 mg Q12 GTB Last administered on 07/31/16 09:58; Admin Dose 500 MG; Start 07/29/16 at 21:00 Potassium Chloride/Sodium Chloride (1/2 NS + KCl 20 Meq) 1,000 ml @ 50 mls/hr Q20H IV Last administered on 07/31/16 09:58; Admin Dose 50 MLS/HR; Start 07/30 at 14:30 Enoxaparin Sodium (Lovenox) 30 mg DAILY SC Last administered on 07/31/16 10:04 ; Admin Dose 30 MG; Start 07/31/16 at 09:00 Pantoprazole (Protonix Iv) 40 mg DAILY@06 IV Last administered on 07/31/16 05: 20; Admin Dose 40 MG; Start 07/31/16 at 06:00 AMNA CABRERA July 31, 2016 14:42
--- NOTE | 2016-07-31 17:38 | CONS ---
Date/Time of Note Date/Time of Note DATE: 07/31/16 TIME: 17:33 Assessment/Plan Assessment/Plan Chief Complaint/Hosp Course IMPRESSION: 1. Bradycardia with EKG and telemetry, most consistent with sinus bradycardia at this time.-to low of 36 overnight. Currently improved at 60-70. NL Free T4 2. Questionable paroxysmal atrial fibrillation and from EKG reportedly done at chronic care facility. 3. Abnormal electrocardiogram with nonspecific ST-T abnormalities, assess for acute coronary syndrome.-negative trop x 1/Echo this admit NL EF55-60/DD/MR/TR 4. Hypotension, chronic on Midodrine. 5. Respiratory failure, chronic, status post tracheostomy. 6. Dysphagia status post G-tube. 7. History anoxic encephalopathy. 8. History of hypothyroidism with currently normal TSH. 9. Anemia, mild. Recc: -Tele -follow rate/rhythm closely - Will consider PPM as necessary -Continue midodrine BP support -complete michell -Contnue synthroid Problems: Consultation Date/Type/Reason Admit Date/Time July 30, 2016 at 15:03 Initial Consult Date 07/30/2016 Type of Consultation: Cardiology Reason for Consultation bradycardia Referring Provider: HALLE FLOYD MD Exam/Review of Systems Vital Signs Vitals Vital Signs Date Time Temp Pulse Resp B/P Pulse Ox O2 Delivery O2 Flow Rate FiO2 07/31/16 16:00 58 07/31/16 15:15 98.2 19 110/56 98 07/31/16 15:00 40 07/29/16 15:24 Mechanical Ventilator Trach Collar Intake and Output 07/30/16 07/30/16 07/31/16 15:00 23:00 07:00 Intake Total 900 ml 2000 ml Balance 900 ml 2000 ml Exam Review of Systems: CONSTITUTIONAL: No fevers, chills. PULMONARY: trached CARDIOVASCULAR: No chest pain/palpitations GASTROINTESTINAL: No nausea/vomiting. GENITOURINARY: No hematuria/dysuria. MUSCULOSKELETAL: No myagias/arthalgias. PSYCHIATRIC: The patient denies depression. NEUROLOGIC: encephalopathic Constitutional: other (sleeping) Psych: no complaints Head: normocephalic ENMT: mucosa pink and moist Neck: jvd (9 cm water), other (trace in place), supple Respiratory: other Cardiovascular: regular rate and rhythm Gastrointestinal: non-tender, soft Musculoskeletal: muscle tone (normal) Extremities: edema (trace bilateral) Neurological: lethargic, other (encephalopathic) Results Result Diagram: 07/29/16 0030 07/30/16 0600 Medications Medications Current Medications Acetaminophen (Tylenol Liquid) 650 mg Q6H PRN GTB PAIN; Start 07/29/16 at 17:30 Brimonidine Tartrate (Alphagan P 0.15%) 1 drop Q8 BOTH EYES Last administered on 07/31/16 13:31; Admin Dose 1 DROP; Start 07/29/16 at 22:00 Docusate Sodium (Colace Liquid Cup) 100 mg DAILY GTB Last administered on 09:58; Admin Dose 100 MG; Start 07/30/16 at 09:00 Midodrine (Proamatine) 5 mg Q8 GTB Last administered on 07/31/16 13:31; Admin Dose 5 MG; Start 07/29/16 at 22:00 Senna (Senokot) 1 tab QHS GTB Last administered on 07/29/16 21:28; Admin Dose 1 TAB; Start 07/29/16 at 21:00 Latanoprost (Xalatan) 1 drop QHS BOTH EYES Last administered on 07/30/16 21:25 ; Admin Dose 1 DROP; Start 07/29/16 at 21:00 Valproate Sodium 500 mg 500 mg Q12 GTB Last administered on 07/31/16 09:58; Admin Dose 500 MG; Start 07/29/16 at 21:00 Potassium Chloride/Sodium Chloride (1/2 NS + KCl 20 Meq) 1,000 ml @ 50 mls/hr Q20H IV Last administered on 07/31/16 09:58; Admin Dose 50 MLS/HR; Start 07/30 at 14:30 Enoxaparin Sodium (Lovenox) 30 mg DAILY SC Last administered on 07/31/16 10:04 ; Admin Dose 30 MG; Start 07/31/16 at 09:00 Pantoprazole (Protonix Iv) 40 mg DAILY@06 IV Last administered on 07/31/16 05: 20; Admin Dose 40 MG; Start 07/31/16 at 06:00 YUSUF VASQUEZ July 31, 2016 17:38
[2016-07-31] MEDS: SENNA TAB GTB SCH (21:54)
[2016-07-31] MEDS: LATANOPROST 0.005% 2.5 ML OPH BOTH EYES SCH (21:55)
[2016-08-01] VITALS (25 sets, daily range): BP systolic 98–116; BP diastolic 51–59; PULSE 38–52; RESP 17–20
[2016-08-01] MEDS: LEVOTHYROXINE 175 MCG TAB GTB SCH (06:30)
[2016-08-01] MEDS: 1/2 NS + KCL 20 MEQ 1,000 ML IV SCH ×2 (06:30→09:59)
[2016-08-01] MEDS: PANTOPRAZOLE 40 MG INJ IV SCH (06:30)
[2016-08-01] MEDS: BRIMONIDINE 0.15% 5 ML OPH BOTH EYES SCH ×3 (06:31→22:23)
[2016-08-01] MEDS: MIDODRINE 5 MG TAB GTB SCH ×3 (06:31→22:23)
[2016-08-01 06:38] LABS: ADD SCAN DIFF NO
[2016-08-01 06:42] LABS: BASOPHILS % 0.2 % (0.0-2.0); EOSINOPHILS # 0.1 10^3/ul (0.0-0.5); EOSINOPHILS % 1.6 % (0.0-7.0); HEMATOCRIT 38.8 % (42.0-52.0); HEMOGLOBIN 12.3 g/dl (14.0-18.0); LYMPHOCYTES # 1.9 10^3/ul (0.8-2.9); LYMPHOCYTES % 29.2 % (15.0-51.0); MEAN CORPUSCULAR HEMOGLOBIN 31.3 pg (29.0-33.0); MEAN CORPUSCULAR HGB CONC 31.7 g/dl (32.0-37.0); MEAN CORPUSCULAR VOLUME 98.7 fl (82.0-101.0); MEAN PLATELET VOLUME 12.1 fl (7.4-10.4); MONOCYTE # 0.5 10^3/ul (0.3-0.9); MONOCYTES % 7.6 % (0.0-11.0); NEUTROPHIL # 3.9 10^3/ul (1.6-7.5); NEUTROPHILS % 61.1 % (39.0-77.0); PLATELET COUNT 144 10^3/UL (140-415); RED BLOOD COUNT 3.93 10^6/ul (4.70-6.10); RED CELL DISTRIBUTION WIDTH 14.7 % (11.5-14.5); WHITE BLOOD COUNT 6.4 10^3/ul (4.8-10.8)
[2016-08-01 07:14] LABS: CALCIUM 8.9 mg/dl (8.4-10.2); CREATININE 0.8 mg/dl (0.61-1.24); POTASSIUM 4.1 mmol/L (3.5-5.1)
[2016-08-01] MEDS: VALPROIC ACID LIQUID CUP 250 MG/5 ML CUP GTB SCH ×2 (09:59→22:23)
[2016-08-01] MEDS: DOCUSATE SODIUM 10 MG/ML (10ML CUP) GTB SCH (09:59)
[2016-08-01] MEDS: ENOXAPARIN 30 MG/0.3 ML SYG SC SCH (10:00)
--- NOTE | 2016-08-01 11:07 | CONS ---
Date/Time of Note Date/Time of Note DATE: 08/01/16 TIME: 11:05 Consult Date/Type/Reason Admit Date/Time July 30, 2016 at 15:03 Initial Consult Date Type of Consultation: Pulmonary Ordering Provider: HALLE FLOYD MD Subjective Patient remains unresponsive on mechanical ventilation Continues to have bradycardia but no evidence hypotension Objective Vital Signs Date Time Temp Pulse Resp B/P Pulse Ox O2 Delivery O2 Flow Rate FiO2 08/01/16 11:00 40 08/01/16 09:30 41 18 100 08/01/16 07:46 98.6 115/57 07/29/16 15:24 Mechanical Ventilator Trach Collar Intake and Output 07/31/16 07/31/16 08/01/16 15:00 23:00 07:00 Intake Total 1800 ml 1200 ml Output Total 1500 ml 2000 ml Balance 300 ml -800 ml Exam PHYSICAL EXAMINATION: GENERAL: Chronically ill appearing gentleman, appears comfortable at rest, no acute distress. VITAL SIGNS: As above NECK: Trach site clean and intact. CARDIAC: S1, S2, no added sounds or murmurs. CHEST: Diminished air entry bilaterally. ABDOMEN: Soft, nontender. No guarding or rebound. EXTREMITIES: No cyanosis, clubbing. Edema +1. NEUROLOGIC: Generalized weakness. Results/Medications Result Diagram: 08/01/16 0602 08/01/16 0602 Results 24 hrs Laboratory Tests Test 07/31/16 18:45 08/01/16 00:40 08/01/16 06:02 Troponin I < 0.012 < 0.012 White Blood Count 6.4 Red Blood Count 3.93 L Hemoglobin 12.3 L Hematocrit 38.8 L Mean Corpuscular Volume 98.7 Mean Corpuscular Hemoglobin 31.3 Mean Corpuscular Hemoglobin Concent 31.7 L Red Cell Distribution Width 14.7 H Platelet Count 144 Mean Platelet Volume 12.1 H Neutrophils % 61.1 Lymphocytes % 29.2 Monocytes % 7.6 Eosinophils % 1.6 Basophils % 0.2 Nucleated Red Blood Cells % 0.0 Neutrophils # 3.9 Lymphocytes # 1.9 Monocytes # 0.5 Eosinophils # 0.1 Basophils # 0.0 Nucleated Red Blood Cells # 0.0 Sodium Level 140 Potassium Level 4.1 Chloride Level 111 H Carbon Dioxide Level 23 Anion Gap 10 Blood Urea Nitrogen 19 Creatinine 0.80 Glucose Level 96 Calcium Level 8.9 Medications Current Medications Acetaminophen (Tylenol Liquid) 650 mg Q6H PRN GTB PAIN; Start 07/29/16 at 17:30 Brimonidine Tartrate (Alphagan P 0.15%) 1 drop Q8 BOTH EYES Last administered on 08/01/16 06:31; Admin Dose 1 DROP; Start 07/29/16 at 22:00 Docusate Sodium (Colace Liquid Cup) 100 mg DAILY GTB Last administered on 09:59; Admin Dose 100 MG; Start 07/30/16 at 09:00 Midodrine (Proamatine) 5 mg Q8 GTB Last administered on 08/01/16 06:31; Admin Dose 5 MG; Start 07/29/16 at 22:00 Senna (Senokot) 1 tab QHS GTB Last administered on 07/31/16 21:54; Admin Dose 1 TAB; Start 07/29/16 at 21:00 Latanoprost (Xalatan) 1 drop QHS BOTH EYES Last administered on 07/31/16 21:55 ; Admin Dose 1 DROP; Start 07/29/16 at 21:00 Valproate Sodium 500 mg 500 mg Q12 GTB Last administered on 08/01/16 09:59; Admin Dose 500 MG; Start 07/29/16 at 21:00 Potassium Chloride/Sodium Chloride (1/2 NS + KCl 20 Meq) 1,000 ml @ 50 mls/hr Q20H IV Last administered on 08/01/16 09:59; Admin Dose 50 MLS/HR; Start 07/30 at 14:30 Enoxaparin Sodium (Lovenox) 30 mg DAILY SC Last administered on 08/01/16 10:00 ; Admin Dose 30 MG; Start 07/31/16 at 09:00 Pantoprazole (Protonix Iv) 40 mg DAILY@06 IV Last administered on 08/01/16 06: 30; Admin Dose 40 MG; Start 07/31/16 at 06:00 Assessment/Plan Chief Complaint/Hosp Course IMPRESSION AND PLAN: 1. Ventilator dependent respiratory failure. 2. Possible sick sinus syndrome. 3. History of ventilator-dependent respiratory failure. 4. Anoxic encephalopathy. 5. Dysphagia with G-tube. The patient will require: 1. Continued mechanical ventilation. 2. Echocardiogram and cardiology consultation. 3. DVT and GI prophylaxis. 4. Continue tube feeding as tolerated. 5. Hold all medications that may affect his bradycardia. 6. Given the patient's chronic illness and neurological status, permanent pacemaker may not be the best option. Recommend family meeting regarding goals of care Problems: KINGS MILLER MD, [facility] August 01, 2016 11:07
--- NOTE | 2016-08-01 11:29 | RADRPT ---
Vent Rate: 50 bpm RR Interval: 0 msec MA Interval: 164 msec QRS Duration: 142 msec QT Interval: 500 msec QTC Interval: 455 msec P-R-T [place]: 36 - -28 - 23 degrees Sinus bradycardia Right bundle branch block Abnormal ECG Electronically Signed By: Hira Marin [id number]
--- NOTE | 2016-08-01 13:22 | PN ---
Date/Time of Note Date/Time of Note DATE: 08/01/16 TIME: 13:19 Assessment/Plan VTE Prophylaxis VTE Prophylaxis Intervention: SCD's Lines/Catheters [facility] Peripheral IV Urinary Cath still in place: Yes Reason Cath still needed: urinary retention Assessment/Plan Chief Complaint/Hosp Course Bradycardia with HR going down to 38, stable BP. ASSESSMENT AND PLAN: - Atrial fibrillation with slow ventricular response. Telemetry monitoring. Dr. Branch is asked to see patient in cardiology consultation. - Hypothyroidism. TSH is within normal limits, continue current dose of Synthroid. - Seizure disorder. Continue valproic acid. - History of cerebrovascular accident. Continue aspirin. - Ventilator-dependent respiratory failure. Dr. Paredes is following in pulmonology consultation. - Dysphagia with G-tube. Continue G-tube feeding, monitor residual. - History of chronic obstructive pulmonary disease. Continue Lovenox for deep venous thrombosis prophylaxis and Protonix for peptic ulcer disease prophylaxis. Further recommendations based on clinical course. Plan of care discussed with Dr. Pierre. Problems: Exam/Review of Systems Vital Signs Vitals Vital Signs Date Time Temp Pulse Resp B/P Pulse Ox O2 Delivery O2 Flow Rate FiO2 08/01/16 12:14 47 08/01/16 11:58 98.0 18 101/53 98 08/01/16 11:00 40 07/29/16 15:24 Mechanical Ventilator Trach Collar Intake and Output 07/31/16 07/31/16 08/01/16 15:00 23:00 07:00 Intake Total 1800 ml 1200 ml Output Total 1500 ml 2000 ml Balance 300 ml -800 ml Exam Constitutional: frail Neck: other (Tracheostomy), supple Respiratory: normal air movement Cardiovascular: other (Irregularly irregular) Gastrointestinal: non-tender, other (G-tube), soft Extremities: normal pulses Results Result Diagram: 08/01/16 0602 08/01/16 0602 Results 24 hrs Laboratory Tests Test 07/31/16 18:45 08/01/16 00:40 08/01/16 06:02 Troponin I < 0.012 < 0.012 White Blood Count 6.4 Red Blood Count 3.93 L Hemoglobin 12.3 L Hematocrit 38.8 L Mean Corpuscular Volume 98.7 Mean Corpuscular Hemoglobin 31.3 Mean Corpuscular Hemoglobin Concent 31.7 L Red Cell Distribution Width 14.7 H Platelet Count 144 Mean Platelet Volume 12.1 H Neutrophils % 61.1 Lymphocytes % 29.2 Monocytes % 7.6 Eosinophils % 1.6 Basophils % 0.2 Nucleated Red Blood Cells % 0.0 Neutrophils # 3.9 Lymphocytes # 1.9 Monocytes # 0.5 Eosinophils # 0.1 Basophils # 0.0 Nucleated Red Blood Cells # 0.0 Sodium Level 140 Potassium Level 4.1 Chloride Level 111 H Carbon Dioxide Level 23 Anion Gap 10 Blood Urea Nitrogen 19 Creatinine 0.80 Glucose Level 96 Calcium Level 8.9 Medications Medications Current Medications Acetaminophen (Tylenol Liquid) 650 mg Q6H PRN GTB PAIN; Start 07/29/16 at 17:30 Brimonidine Tartrate (Alphagan P 0.15%) 1 drop Q8 BOTH EYES Last administered on 08/01/16 06:31; Admin Dose 1 DROP; Start 07/29/16 at 22:00 Docusate Sodium (Colace Liquid Cup) 100 mg DAILY GTB Last administered on 09:59; Admin Dose 100 MG; Start 07/30/16 at 09:00 Midodrine (Proamatine) 5 mg Q8 GTB Last administered on 08/01/16 06:31; Admin Dose 5 MG; Start 07/29/16 at 22:00 Senna (Senokot) 1 tab QHS GTB Last administered on 07/31/16 21:54; Admin Dose 1 TAB; Start 07/29/16 at 21:00 Latanoprost (Xalatan) 1 drop QHS BOTH EYES Last administered on 07/31/16 21:55 ; Admin Dose 1 DROP; Start 07/29/16 at 21:00 Valproate Sodium 500 mg 500 mg Q12 GTB Last administered on 08/01/16 09:59; Admin Dose 500 MG; Start 07/29/16 at 21:00 Potassium Chloride/Sodium Chloride (1/2 NS + KCl 20 Meq) 1,000 ml @ 50 mls/hr Q20H IV Last administered on 08/01/16 09:59; Admin Dose 50 MLS/HR; Start 07/30 at 14:30 Enoxaparin Sodium (Lovenox) 30 mg DAILY SC Last administered on 08/01/16 10:00 ; Admin Dose 30 MG; Start 07/31/16 at 09:00 Pantoprazole (Protonix Iv) 40 mg DAILY@06 IV Last administered on 08/01/16t 06: 30; Admin Dose 40 MG; Start 07/31/16 at 06:00 BRAYAN HUDSON August 01, 2016 13:22
--- NOTE | 2016-08-01 14:35 | CONS ---
Date/Time of Note Date/Time of Note DATE: 08/01/16 TIME: 14:33 Assessment/Plan Assessment/Plan Chief Complaint/Hosp Course IMPRESSION: 1. Bradycardia with EKG and telemetry, most consistent with sinus bradycardia at this time.-to low of 36 overnight. Currently improved at 60-70. NL Free T4 2. Questionable paroxysmal atrial fibrillation and from EKG reportedly done at chronic care facility. 3. Abnormal electrocardiogram with nonspecific ST-T abnormalities, assess for acute coronary syndrome.-negative trop x 3/Echo this admit NL EF55-60/DD/MR/TR 4. Hypotension, chronic on Midodrine. 5. Respiratory failure, chronic, status post tracheostomy. 6. Dysphagia status post G-tube. 7. History anoxic encephalopathy. 8. History of hypothyroidism with currently normal TSH. 9. Anemia, mild. Recc: -Tele -follow rate/rhythm closely - Will consider PPM and thus have EP eval patient -Continue midodrine BP support -Contnue synthroid Problems: Consultation Date/Type/Reason Admit Date/Time July 30, 2016 at 15:03 Initial Consult Date 07/30/2016 Type of Consultation: Cardiology Reason for Consultation bradycardia Referring Provider: HALLE FLOYD MD Exam/Review of Systems Vital Signs Vitals Vital Signs Date Time Temp Pulse Resp B/P Pulse Ox O2 Delivery O2 Flow Rate FiO2 08/01/16 12:14 47 08/01/16 11:58 98.0 18 101/53 98 08/01/16 11:00 40 07/29/16 15:24 Mechanical Ventilator Trach Collar Intake and Output 07/31/16 07/31/16 08/01/16 15:00 23:00 07:00 Intake Total 1800 ml 1200 ml Output Total 1500 ml 2000 ml Balance 300 ml -800 ml Exam Review of Systems: CONSTITUTIONAL: No fevers, chills. PULMONARY: trached CARDIOVASCULAR: No chest pain/palpitations GASTROINTESTINAL: No nausea/vomiting. GENITOURINARY: No hematuria/dysuria. MUSCULOSKELETAL: No myagias/arthalgias. PSYCHIATRIC: The patient denies depression. NEUROLOGIC: Encephalopathic Constitutional: alert Psych: no complaints Head: normocephalic ENMT: mucosa pink and moist Neck: jvd (9 cm water), supple Respiratory: diminished breath sounds (at bases/B) Cardiovascular: other (bradycardic) Gastrointestinal: non-tender, soft Musculoskeletal: muscle tone (normal) Extremities: edema (none) Neurological: other (No focal deficits) Results Result Diagram: 08/01/1660108/01/16 06 Results 24 hrs Laboratory Tests Test 07/31/16 18:45 08/01/16 00:40 08/01/16 06:02 Troponin I < 0.012 < 0.012 White Blood Count 6.4 Red Blood Count 3.93 L Hemoglobin 12.3 L Hematocrit 38.8 L Mean Corpuscular Volume 98.7 Mean Corpuscular Hemoglobin 31.3 Mean Corpuscular Hemoglobin Concent 31.7 L Red Cell Distribution Width 14.7 H Platelet Count 144 Mean Platelet Volume 12.1 H Neutrophils % 61.1 Lymphocytes % 29.2 Monocytes % 7.6 Eosinophils % 1.6 Basophils % 0.2 Nucleated Red Blood Cells % 0.0 Neutrophils # 3.9 Lymphocytes # 1.9 Monocytes # 0.5 Eosinophils # 0.1 Basophils # 0.0 Nucleated Red Blood Cells # 0.0 Sodium Level 140 Potassium Level 4.1 Chloride Level 111 H Carbon Dioxide Level 23 Anion Gap 10 Blood Urea Nitrogen 19 Creatinine 0.80 Glucose Level 96 Calcium Level 8.9 Medications Medications Current Medications Acetaminophen (Tylenol Liquid) 650 mg Q6H PRN GTB PAIN; Start 07/29/16 at 17:30 Brimonidine Tartrate (Alphagan P 0.15%) 1 drop Q8 BOTH EYES Last administered on 08/01/16 06:31; Admin Dose 1 DROP; Start 07/29/16 at 22:00 Docusate Sodium (Colace Liquid Cup) 100 mg DAILY GTB Last administered on 09:59; Admin Dose 100 MG; Start 07/30/16 at 09:00 Midodrine (Proamatine) 5 mg Q8 GTB Last administered on 08/01/16 06:31; Admin Dose 5 MG; Start 07/29/16 at 22:00 Senna (Senokot) 1 tab QHS GTB Last administered on 07/31/16 21:54; Admin Dose 1 TAB; Start 07/29/16 at 21:00 Latanoprost (Xalatan) 1 drop QHS BOTH EYES Last administered on 07/31/16 21:55 ; Admin Dose 1 DROP; Start 07/29/16 at 21:00 Valproate Sodium 500 mg 500 mg Q12 GTB Last administered on 08/01/16 09:59; Admin Dose 500 MG; Start 07/29/16 at 21:00 Potassium Chloride/Sodium Chloride (1/2 NS + KCl 20 Meq) 1,000 ml @ 50 mls/hr Q20H IV Last administered on 08/01/16 09:59; Admin Dose 50 MLS/HR; Start 07/30 at 14:30 Enoxaparin Sodium (Lovenox) 30 mg DAILY SC Last administered on 08/01/16 10:00 ; Admin Dose 30 MG; Start 07/31/16 at 09:00 Pantoprazole (Protonix Iv) 40 mg DAILY@06 IV Last administered on 08/01/16 06: 30; Admin Dose 40 MG; Start 07/31/16 at 06:00 YUSUF VASQUEZ August 01, 2016 14:35
[2016-08-01] MEDS: LATANOPROST 0.005% 2.5 ML OPH BOTH EYES SCH (22:23)
[2016-08-01] MEDS: SENNA TAB GTB SCH (22:23)
[2016-08-02] VITALS (24 sets, daily range): BP systolic 101–133; BP diastolic 53–84; PULSE 42–47; RESP 18–21
[2016-08-02] MEDS: PANTOPRAZOLE 40 MG INJ IV SCH (05:44)
[2016-08-02] MEDS: BRIMONIDINE 0.15% 5 ML OPH BOTH EYES SCH ×3 (05:44→21:51)
[2016-08-02] MEDS: MIDODRINE 5 MG TAB GTB SCH ×3 (05:44→21:54)
[2016-08-02 06:35] LABS: ADD SCAN DIFF NO
[2016-08-02] MEDS: LEVOTHYROXINE 175 MCG TAB GTB SCH (06:37)
[2016-08-02 06:43] LABS: BASOPHILS % 0.6 % (0.0-2.0); EOSINOPHILS # 0.1 10^3/ul (0.0-0.5); EOSINOPHILS % 1.8 % (0.0-7.0); HEMATOCRIT 39.6 % (42.0-52.0); HEMOGLOBIN 12.5 g/dl (14.0-18.0); LYMPHOCYTES # 1.7 10^3/ul (0.8-2.9); LYMPHOCYTES % 33.9 % (15.0-51.0); MEAN CORPUSCULAR HEMOGLOBIN 31.1 pg (29.0-33.0); MEAN CORPUSCULAR HGB CONC 31.6 g/dl (32.0-37.0); MEAN CORPUSCULAR VOLUME 98.5 fl (82.0-101.0); MEAN PLATELET VOLUME 12.2 fl (7.4-10.4); MONOCYTE # 0.4 10^3/ul (0.3-0.9); MONOCYTES % 8.5 % (0.0-11.0); NEUTROPHIL # 2.7 10^3/ul (1.6-7.5); NEUTROPHILS % 54.8 % (39.0-77.0); PLATELET COUNT 139 10^3/UL (140-415); RED BLOOD COUNT 4.02 10^6/ul (4.70-6.10); RED CELL DISTRIBUTION WIDTH 14.6 % (11.5-14.5)
[2016-08-02 07:20] LABS: POTASSIUM 4.3 mmol/L (3.5-5.1)
[2016-08-02 07:23] LABS: CREATININE 0.73 mg/dl (0.61-1.24)
[2016-08-02 07:24] LABS: CALCIUM 9.1 mg/dl (8.4-10.2)
[2016-08-02] MEDS: DOCUSATE SODIUM 10 MG/ML (10ML CUP) GTB SCH (08:20)
[2016-08-02] MEDS: VALPROIC ACID LIQUID CUP 250 MG/5 ML CUP GTB SCH ×2 (08:20→21:50)
[2016-08-02] MEDS: ENOXAPARIN 30 MG/0.3 ML SYG SC SCH (08:44)
--- NOTE | 2016-08-02 12:26 | PN ---
Date/Time of Note Date/Time of Note DATE: 08/02/16 TIME: 12:25 Assessment/Plan VTE Prophylaxis VTE Prophylaxis Intervention: other Lines/Catheters IV Catheter Type (from Nrs): Peripheral IV Urinary Cath still in place: Yes Reason Cath still needed: skin wounds contaminated by urine Assessment/Plan Chief Complaint/Hosp Course - Atrial fibrillation with slow ventricular response. Telemetry monitoring. Dr. Branch is asked to see patient in cardiology consultation. - Hypothyroidism. TSH is within normal limits, continue current dose of Synthroid. - Seizure disorder. Continue valproic acid. - History of cerebrovascular accident. Continue aspirin. - Ventilator-dependent respiratory failure. Dr. Paredes is following in pulmonology consultation. - Dysphagia with G-tube. Continue G-tube feeding, monitor residual. - History of chronic obstructive pulmonary disease. Problems: Subjective 24 Hr Interval Summary Free Text/Dictation Patient is resting comfortably, has no complaints Exam/Review of Systems Vital Signs Vitals Vital Signs Date Time Temp Pulse Resp B/P Pulse Ox O2 Delivery O2 Flow Rate FiO2 08/02/16 11:15 40 18 96 40 08/02/16 11:13 98.7 106/55 07/29/16 15:24 Mechanical Ventilator Trach Collar Intake and Output 08/01/16 08/01/16 08/02/16 15:00 23:00 07:00 Intake Total 1800 ml 1200 ml Output Total 1100 ml 1500 ml Balance 700 ml -300 ml Exam Constitutional: well developed Head: atraumatic, normocephalic Neck: supple Respiratory: clear to auscultation Cardiovascular: regular rate and rhythm Gastrointestinal: non-tender, soft Extremities: normal pulses Results Result Diagram: 08/02/16 0550 08/02/16 0550 Results 24 hrs Laboratory Tests Test 08/02/16 05:50 White Blood Count 5.0 # Red Blood Count 4.02 L Hemoglobin 12.5 L Hematocrit 39.6 L Mean Corpuscular Volume 98.5 Mean Corpuscular Hemoglobin 31.1 Mean Corpuscular Hemoglobin Concent 31.6 L Red Cell Distribution Width 14.6 H Platelet Count 139 L Mean Platelet Volume 12.2 H Neutrophils % 54.8 Lymphocytes % 33.9 Monocytes % 8.5 Eosinophils % 1.8 Basophils % 0.6 Nucleated Red Blood Cells % 0.0 Neutrophils # 2.7 Lymphocytes # 1.7 Monocytes # 0.4 Eosinophils # 0.1 Basophils # 0.0 Nucleated Red Blood Cells # 0.0 Sodium Level 142 Potassium Level 4.3 Chloride Level 109 Carbon Dioxide Level 22 Anion Gap 15 Blood Urea Nitrogen 19 Creatinine 0.73 Glucose Level 104 Calcium Level 9.1 Medications Medications Current Medications Acetaminophen (Tylenol Liquid) 650 mg Q6H PRN GTB PAIN; Start 07/29/16 at 17:30 Brimonidine Tartrate (Alphagan P 0.15%) 1 drop Q8 BOTH EYES Last administered on 08/02/16 05:44; Admin Dose 1 DROP; Start 07/29/16 at 22:00 Docusate Sodium (Colace Liquid Cup) 100 mg DAILY GTB Last administered on 08:20; Admin Dose 100 MG; Start 07/30/16 at 09:00 Midodrine (Proamatine) 5 mg Q8 GTB Last administered on 08/02/16 05:44; Admin Dose 5 MG; Start 07/29/16 at 22:00 Senna (Senokot) 1 tab QHS GTB Last administered on 08/01/16 22:23; Admin Dose 1 TAB; Start 07/29/16 at 21:00 Latanoprost (Xalatan) 1 drop QHS BOTH EYES Last administered on 08/01/16 22:23 ; Admin Dose 1 DROP; Start 07/29/16 at 21:00 Valproate Sodium 500 mg 500 mg Q12 GTB Last administered on 08/02/16 08:20; Admin Dose 500 MG; Start 07/29/16 at 21:00 Potassium Chloride/Sodium Chloride (1/2 NS + KCl 20 Meq) 1,000 ml @ 50 mls/hr Q20H IV Last administered on 08/01/16 09:59; Admin Dose 50 MLS/HR; Start 07/30 at 14:30 Enoxaparin Sodium (Lovenox) 30 mg DAILY SC Last administered on 08/02/16 08:44 ; Admin Dose 30 MG; Start 07/31/16 at 09:00 Pantoprazole (Protonix Iv) 40 mg DAILY@06 IV Last administered on 08/02/16 05: 44; Admin Dose 40 MG; Start 07/31/16 at 06:00 MICHAEL RIOS August 02, 2016 12:26
--- NOTE | 2016-08-02 16:44 | CONS ---
Date/Time of Note Date/Time of Note DATE: 08/02/16 TIME: 16:41 Consult Date/Type/Reason Admit Date/Time July 30, 2016 at 15:03 Initial Consult Date Type of Consultation: Pulm Ordering Provider: HALLE FLOYD MD Subjective No events on MV Objective Vital Signs Date Time Temp Pulse Resp B/P Pulse Ox O2 Delivery O2 Flow Rate FiO2 08/02/16 16:17 47 08/02/16 15:53 18 98 40 08/02/16 15:26 98.2 108/71 07/29/16 15:24 Mechanical Ventilator Trach Collar Intake and Output 08/01/16 08/01/16 08/02/16 15:00 23:00 07:00 Intake Total 1800 ml 1200 ml Output Total 1100 ml 1500 ml Balance 700 ml -300 ml Exam NECK: Trach site clean and intact. CARDIAC: S1, S2, no added sounds or murmurs. CHEST: Diminished air entry bilaterally. ABDOMEN: Soft, nontender. No guarding or rebound. EXTREMITIES: No cyanosis, clubbing. Edema +1. Results/Medications Result Diagram: 08/02/16 0550 08/02/16 0550 Results 24 hrs Laboratory Tests Test 08/02/16 05:50 White Blood Count 5.0 # Red Blood Count 4.02 L Hemoglobin 12.5 L Hematocrit 39.6 L Mean Corpuscular Volume 98.5 Mean Corpuscular Hemoglobin 31.1 Mean Corpuscular Hemoglobin Concent 31.6 L Red Cell Distribution Width 14.6 H Platelet Count 139 L Mean Platelet Volume 12.2 H Neutrophils % 54.8 Lymphocytes % 33.9 Monocytes % 8.5 Eosinophils % 1.8 Basophils % 0.6 Nucleated Red Blood Cells % 0.0 Neutrophils # 2.7 Lymphocytes # 1.7 Monocytes # 0.4 Eosinophils # 0.1 Basophils # 0.0 Nucleated Red Blood Cells # 0.0 Sodium Level 142 Potassium Level 4.3 Chloride Level 109 Carbon Dioxide Level 22 Anion Gap 15 Blood Urea Nitrogen 19 Creatinine 0.73 Glucose Level 104 Calcium Level 9.1 Medications Current Medications Acetaminophen (Tylenol Liquid) 650 mg Q6H PRN GTB PAIN; Start 07/29/16 at 17:30 Brimonidine Tartrate (Alphagan P 0.15%) 1 drop Q8 BOTH EYES Last administered on 08/02/16t 15:31; Admin Dose 1 DROP; Start 07/29/16 at 22:00 Docusate Sodium (Colace Liquid Cup) 100 mg DAILY GTB Last administered on 08:20; Admin Dose 100 MG; Start 07/30/16 at 09:00 Midodrine (Proamatine) 5 mg Q8 GTB Last administered on 08/02/16 15:31; Admin Dose 5 MG; Start 07/29/16 at 22:00 Senna (Senokot) 1 tab QHS GTB Last administered on 08/01/16 22:23; Admin Dose 1 TAB; Start 07/29/16 at 21:00 Latanoprost (Xalatan) 1 drop QHS BOTH EYES Last administered on 08/01/16 22:23 ; Admin Dose 1 DROP; Start 07/29/16 at 21:00 Valproate Sodium 500 mg 500 mg Q12 GTB Last administered on 08/02/16 08:20; Admin Dose 500 MG; Start 07/29/16 at 21:00 Potassium Chloride/Sodium Chloride (1/2 NS + KCl 20 Meq) 1,000 ml @ 50 mls/hr Q20H IV Last administered on 08/01/16 09:59; Admin Dose 50 MLS/HR; Start 07/30 at 14:30 Enoxaparin Sodium (Lovenox) 30 mg DAILY SC Last administered on 08/02/16 08:44 ; Admin Dose 30 MG; Start 07/31/16 at 09:00 Pantoprazole (Protonix Iv) 40 mg DAILY@06 IV Last administered on 08/02/16 05: 44; Admin Dose 40 MG; Start 07/31/16 at 06:00 Assessment/Plan Additional Assessment/Plan IMPRESSION: : 1. Ventilator dependent respiratory failure. 2. Possible sick sinus syndrome. 3. History of ventilator-dependent respiratory failure. 4. Anoxic encephalopathy. 5. Dysphagia with G-tube. RECS: 1. Continued mechanical ventilation. 2. BD's/CPT 3. Follow tele 4. Continue TF/Free H20 TATIANA YBARRA MD August 02, 2016 16:44
--- NOTE | 2016-08-02 16:52 | CONS ---
Date/Time of Note Date/Time of Note DATE: 08/02/16 TIME: 16:47 Assessment/Plan Assessment/Plan Additional Assessment/Plan VDRF Anoxic Encephalopathy Hypertension Hypothyroidism Seizures Dysphagia s/p G Tube Rhythm Sinus Bradycardia BP Controlled Continue Ventilator support Continue aggressive pulmonary toiletry Continue Midodrine Continue GI and DVT Prophylaxis Continue Levothyroxine Avoid AV Sarah Blockers Consultation Date/Type/Reason Admit Date/Time July 30, 2016 at 15:03 Psychological: no complaints Social History Smoking Status: Unknown if ever smoked Exam/Review of Systems Vital Signs Vitals Vital Signs Date Time Temp Pulse Resp B/P Pulse Ox O2 Delivery O2 Flow Rate FiO2 08/02/16 16:17 47 08/02/16 15:53 18 98 40 08/02/16 15:26 98.2 108/71 07/29/16 15:24 Mechanical Ventilator Trach Collar Intake and Output 08/01/16 08/01/16 08/02/16 15:00 23:00 07:00 Intake Total 1800 ml 1200 ml Output Total 1100 ml 1500 ml Balance 700 ml -300 ml Exam Gen: Non responsive Neck Trach on ventilator CVS: RRR, No m/r/g Chest Mechanical breath sounds heard bilaterally Abdomen BS heard Ext No pedal edema Results Result Diagram: 08/02/16 0550 08/02/16 0550 Results 24 hrs Laboratory Tests Test 08/02/16 05:50 White Blood Count 5.0 # Red Blood Count 4.02 L Hemoglobin 12.5 L Hematocrit 39.6 L Mean Corpuscular Volume 98.5 Mean Corpuscular Hemoglobin 31.1 Mean Corpuscular Hemoglobin Concent 31.6 L Red Cell Distribution Width 14.6 H Platelet Count 139 L Mean Platelet Volume 12.2 H Neutrophils % 54.8 Lymphocytes % 33.9 Monocytes % 8.5 Eosinophils % 1.8 Basophils % 0.6 Nucleated Red Blood Cells % 0.0 Neutrophils # 2.7 Lymphocytes # 1.7 Monocytes # 0.4 Eosinophils # 0.1 Basophils # 0.0 Nucleated Red Blood Cells # 0.0 Sodium Level 142 Potassium Level 4.3 Chloride Level 109 Carbon Dioxide Level 22 Anion Gap 15 Blood Urea Nitrogen 19 Creatinine 0.73 Glucose Level 104 Calcium Level 9.1 Medications Medications Current Medications Acetaminophen (Tylenol Liquid) 650 mg Q6H PRN GTB PAIN; Start 07/29/16 at 17:30 Brimonidine Tartrate (Alphagan P 0.15%) 1 drop Q8 BOTH EYES Last administered on 08/02/16 15:31; Admin Dose 1 DROP; Start 07/29/16 at 22:00 Docusate Sodium (Colace Liquid Cup) 100 mg DAILY GTB Last administered on 08:20; Admin Dose 100 MG; Start 07/30/16 at 09:00 Midodrine (Proamatine) 5 mg Q8 GTB Last administered on 08/02/16 15:31; Admin Dose 5 MG; Start 07/29/16 at 22:00 Senna (Senokot) 1 tab QHS GTB Last administered on 08/01/16 22:23; Admin Dose 1 TAB; Start 07/29/16 at 21:00 Latanoprost (Xalatan) 1 drop QHS BOTH EYES Last administered on 08/01/16 22:23 ; Admin Dose 1 DROP; Start 07/29/16 at 21:00 Valproate Sodium 500 mg 500 mg Q12 GTB Last administered on 08/02/16 08:20; Admin Dose 500 MG; Start 07/29/16 at 21:00 Potassium Chloride/Sodium Chloride (1/2 NS + KCl 20 Meq) 1,000 ml @ 50 mls/hr Q20H IV Last administered on 08/01/16 09:59; Admin Dose 50 MLS/HR; Start 07/30 at 14:30 Enoxaparin Sodium (Lovenox) 30 mg DAILY SC Last administered on 08/02/16 08:44 ; Admin Dose 30 MG; Start 07/31/16 at 09:00 Pantoprazole (Protonix Iv) 40 mg DAILY@06 IV Last administered on 08/02/16 05: 44; Admin Dose 40 MG; Start 07/31/16 at 06:00 DEYA HOWARD M.D. August 02, 2016 16:52
[2016-08-02] MEDS: SENNA TAB GTB SCH (21:51)
[2016-08-02] MEDS: LATANOPROST 0.005% 2.5 ML OPH BOTH EYES SCH (21:51)
[2016-08-02] MEDS: 1/2 NS + KCL 20 MEQ 1,000 ML IV SCH (22:28)
[2016-08-03] VITALS (24 sets, daily range): BP systolic 99–129; BP diastolic 53–65; PULSE 40–49; RESP 18
[2016-08-03] MEDS: 1/2 NS + KCL 20 MEQ 1,000 ML IV SCH ×2 (00:21→18:03)
[2016-08-03] MEDS: MIDODRINE 5 MG TAB GTB SCH ×3 (06:00→22:18)
[2016-08-03] MEDS: LEVOTHYROXINE 175 MCG TAB GTB SCH (06:44)
[2016-08-03] MEDS: BRIMONIDINE 0.15% 5 ML OPH BOTH EYES SCH ×3 (06:45→22:18)
[2016-08-03] MEDS: PANTOPRAZOLE 40 MG INJ IV SCH (07:18)
[2016-08-03] MEDS: VALPROIC ACID LIQUID CUP 250 MG/5 ML CUP GTB SCH ×2 (08:44→20:55)
[2016-08-03] MEDS: DOCUSATE SODIUM 10 MG/ML (10ML CUP) GTB SCH (08:44)
[2016-08-03] MEDS: ENOXAPARIN 30 MG/0.3 ML SYG SC SCH (08:53)
--- NOTE | 2016-08-03 12:52 | PN ---
Date/Time of Note Date/Time of Note DATE: 08/03/16 TIME: 12:51 Assessment/Plan VTE Prophylaxis VTE Prophylaxis Intervention: other Lines/Catheters IV Catheter Type (from Nrs): Peripheral IV Urinary Cath still in place: Yes Reason Cath still needed: skin wounds contaminated by urine Assessment/Plan Chief Complaint/Hosp Course - Atrial fibrillation with slow ventricular response. Telemetry monitoring. Dr. Branch is asked to see patient in cardiology consultation. - Hypothyroidism. TSH is within normal limits, continue current dose of Synthroid. - Seizure disorder. Continue valproic acid. - History of cerebrovascular accident. Continue aspirin. - Ventilator-dependent respiratory failure. Dr. Paredes is following in pulmonology consultation. - Dysphagia with G-tube. Continue G-tube feeding, monitor residual. - History of chronic obstructive pulmonary disease. Problems: Subjective 24 Hr Interval Summary Free Text/Dictation Patient has no complaints Exam/Review of Systems Vital Signs Vitals Vital Signs Date Time Temp Pulse Resp B/P Pulse Ox O2 Delivery O2 Flow Rate FiO2 08/03/16 12:07 44 08/03/16 11:08 18 98 40 08/03/16 11:03 98.0 126/63 Intake and Output 08/02/16 08/02/16 08/03/16 15:00 23:00 07:00 Intake Total 500 ml 1565 ml Output Total 1000 ml Balance 500 ml 565 ml Exam Constitutional: well developed Head: atraumatic, normocephalic Neck: supple Respiratory: clear to auscultation Cardiovascular: regular rate and rhythm Gastrointestinal: non-tender, soft Extremities: normal pulses Results Result Diagram: 08/02/16 0550 08/02/16 0550 Medications Medications Current Medications Acetaminophen (Tylenol Liquid) 650 mg Q6H PRN GTB PAIN; Start 07/29/16 at 17:30 Brimonidine Tartrate (Alphagan P 0.15%) 1 drop Q8 BOTH EYES Last administered on 08/03/16 06:45; Admin Dose 1 DROP; Start 07/29/16 at 22:00 Docusate Sodium (Colace Liquid Cup) 100 mg DAILY GTB Last administered on 08:44; Admin Dose 100 MG; Start 07/30/16 at 09:00 Midodrine (Proamatine) 5 mg Q8 GTB Last administered on 08/02/16 21:54; Admin Dose 5 MG; Start 07/29/16 at 22:00 Senna (Senokot) 1 tab QHS GTB Last administered on 08/02/16 21:51; Admin Dose 1 TAB; Start 07/29/16 at 21:00 Latanoprost (Xalatan) 1 drop QHS BOTH EYES Last administered on 08/02/16 21:51 ; Admin Dose 1 DROP; Start 07/29/16 at 21:00 Valproate Sodium 500 mg 500 mg Q12 GTB Last administered on 08/03/16 08:44; Admin Dose 500 MG; Start 07/29/16 at 21:00 Potassium Chloride/Sodium Chloride (1/2 NS + KCl 20 Meq) 1,000 ml @ 50 mls/hr Q20H IV Last administered on 08/03/16 00:21; Admin Dose 50 MLS/HR; Start 07/30 at 14:30 Enoxaparin Sodium (Lovenox) 30 mg DAILY SC Last administered on 08/03/16 08:53 ; Admin Dose 30 MG; Start 07/31/16 at 09:00 Lansoprazole (Prevacid) 30 mg DAILY@06 GTB ; Start 08/04/16 at 06:00 MICHAEL RIOS August 03, 2016 12:52
--- NOTE | 2016-08-03 13:43 | CONS ---
Date/Time of Note Date/Time of Note DATE: 08/03/16 TIME: 13:41 Consult Date/Type/Reason Admit Date/Time July 30, 2016 at 15:03 Type of Consultation: Pulm Ordering Provider: HALLE FLOYD MD Subjective No events. Objective Vital Signs Date Time Temp Pulse Resp B/P Pulse Ox O2 Delivery O2 Flow Rate FiO2 08/03/16 12:07 44 08/03/16 11:08 18 98 40 08/03/16 11:03 98.0 126/63 Intake and Output 08/02/16 08/02/16 08/03/16 15:00 23:00 07:00 Intake Total 500 ml 1565 ml Output Total 1000 ml Balance 500 ml 565 ml Exam NECK: Trach site clean and intact. CARDIAC: Irreg irreg S1, S2 CHEST: Diminished air entry bilaterally. ABDOMEN: Soft, nontender. No guarding or rebound. EXTREMITIES: No cyanosis, clubbing. Edema +1. Results/Medications Result Diagram: 08/02/16 0550 08/02/16 0550 Medications Current Medications Acetaminophen (Tylenol Liquid) 650 mg Q6H PRN GTB PAIN; Start 07/29/16 at 17:30 Brimonidine Tartrate (Alphagan P 0.15%) 1 drop Q8 BOTH EYES Last administered on 08/03/16 06:45; Admin Dose 1 DROP; Start 07/29/16 at 22:00 Docusate Sodium (Colace Liquid Cup) 100 mg DAILY GTB Last administered on 08:44; Admin Dose 100 MG; Start 07/30/16 at 09:00 Midodrine (Proamatine) 5 mg Q8 GTB Last administered on 08/02/16 21:54; Admin Dose 5 MG; Start 07/29/16 at 22:00 Senna (Senokot) 1 tab QHS GTB Last administered on 08/02/16 21:51; Admin Dose 1 TAB; Start 07/29/16 at 21:00 Latanoprost (Xalatan) 1 drop QHS BOTH EYES Last administered on 08/02/16 21:51 ; Admin Dose 1 DROP; Start 07/29/16 at 21:00 Valproate Sodium 500 mg 500 mg Q12 GTB Last administered on 08/03/16 08:44; Admin Dose 500 MG; Start 07/29/16 at 21:00 Potassium Chloride/Sodium Chloride (1/2 NS + KCl 20 Meq) 1,000 ml @ 50 mls/hr Q20H IV Last administered on 08/03/16 00:21; Admin Dose 50 MLS/HR; Start 07/30 at 14:30 Enoxaparin Sodium (Lovenox) 30 mg DAILY SC Last administered on 08/03/16 08:53 ; Admin Dose 30 MG; Start 07/31/16 at 09:00 Lansoprazole (Prevacid) 30 mg DAILY@06 GTB ; Start 08/04/16 at 06:00 Assessment/Plan Additional Assessment/Plan IMPRESSION: : 1. Ventilator dependent respiratory failure. 2. Afib with slow VR 3. Anoxic encephalopathy. RECS: 1. Vent support. 2. BD's/CPT 3. Follow tele 4. TF/Free H20 TATIANA YBARRA MD August 03, 2016 13:43
--- NOTE | 2016-08-03 16:04 | CONS ---
Date/Time of Note Date/Time of Note DATE: 08/03/16 TIME: 16:04 Assessment/Plan Assessment/Plan Additional Assessment/Plan VDRF Anoxic Encephalopathy Hypertension Hypothyroidism Seizures Dysphagia s/p G Tube Rhythm Sinus Bradycardia BP Controlled Continue Ventilator support Continue aggressive pulmonary toiletry Continue Midodrine Continue GI and DVT Prophylaxis Continue Levothyroxine Avoid AV Sarah Blockers Consultation Date/Type/Reason Admit Date/Time July 30, 2016 at 15:03 Initial Consult Date Type of Consultation: Pulm Referring Provider: HALLE FLOYD MD Exam/Review of Systems Vital Signs Vitals Vital Signs Date Time Temp Pulse Resp B/P Pulse Ox O2 Delivery O2 Flow Rate FiO2 08/03/16 15:22 44 18 98 40 08/03/16 15:16 97.7 116/55 Intake and Output 08/02/16 08/02/16 08/03/16 15:00 23:00 07:00 Intake Total 500 ml 1565 ml Output Total 1000 ml Balance 500 ml 565 ml Exam Gen: Non responsive Neck Trach on ventilator CVS: RRR, No m/r/g Chest Mechanical breath sounds heard bilaterally Abdomen BS heard Ext No pedal edema Results Result Diagram: 08/02/16 0550 08/02/16 0550 Medications Medications Current Medications Acetaminophen (Tylenol Liquid) 650 mg Q6H PRN GTB PAIN; Start 07/29/16 at 17:30 Brimonidine Tartrate (Alphagan P 0.15%) 1 drop Q8 BOTH EYES Last administered on 08/03/16 14:39; Admin Dose 1 DROP; Start 07/29/16 at 22:00 Docusate Sodium (Colace Liquid Cup) 100 mg DAILY GTB Last administered on 08:44; Admin Dose 100 MG; Start 07/30/16 at 09:00 Midodrine (Proamatine) 5 mg Q8 GTB Last administered on 08/02/16 21:54; Admin Dose 5 MG; Start 07/29/16 at 22:00 Senna (Senokot) 1 tab QHS GTB Last administered on 08/02/16 21:51; Admin Dose 1 TAB; Start 07/29/16 at 21:00 Latanoprost (Xalatan) 1 drop QHS BOTH EYES Last administered on 08/02/16 21:51 ; Admin Dose 1 DROP; Start 07/29/16 at 21:00 Valproate Sodium 500 mg 500 mg Q12 GTB Last administered on 08/03/16 08:44; Admin Dose 500 MG; Start 07/29/16 at 21:00 Potassium Chloride/Sodium Chloride (1/2 NS + KCl 20 Meq) 1,000 ml @ 50 mls/hr Q20H IV Last administered on 08/03/16 00:21; Admin Dose 50 MLS/HR; Start 07/30 at 14:30 Enoxaparin Sodium (Lovenox) 30 mg DAILY SC Last administered on 08/03/16 08:53 ; Admin Dose 30 MG; Start 07/31/16 at 09:00 Lansoprazole (Prevacid) 30 mg DAILY@06 GTB ; Start 08/04/16 at 06:00 DEYA HOWARD M.D. August 03, 2016 16:04
[2016-08-03] MEDS: LATANOPROST 0.005% 2.5 ML OPH BOTH EYES SCH (20:55)
[2016-08-03] MEDS: SENNA TAB GTB SCH (20:55)
[2016-08-04] VITALS (24 sets, daily range): BP systolic 98–113; BP diastolic 57–63; PULSE 36–43; RESP 18–21
[2016-08-04] MEDS: LANSOPRAZOLE 30 MG CAP GTB SCH (06:11)
[2016-08-04] MEDS: LEVOTHYROXINE 175 MCG TAB GTB SCH (06:11)
[2016-08-04] MEDS: MIDODRINE 5 MG TAB GTB SCH ×3 (06:11→20:30)
[2016-08-04] MEDS: BRIMONIDINE 0.15% 5 ML OPH BOTH EYES SCH ×3 (06:12→20:29)
[2016-08-04 06:40] LABS: ADD SCAN DIFF NO
[2016-08-04 06:55] LABS: BASOPHILS % 0.5 % (0.0-2.0); EOSINOPHILS # 0.1 10^3/ul (0.0-0.5); EOSINOPHILS % 3.4 % (0.0-7.0); HEMOGLOBIN 13.8 g/dl (14.0-18.0); LYMPHOCYTES # 1.6 10^3/ul (0.8-2.9); LYMPHOCYTES % 37.9 % (15.0-51.0); MEAN CORPUSCULAR HEMOGLOBIN 30.9 pg (29.0-33.0); MEAN CORPUSCULAR HGB CONC 30.7 g/dl (32.0-37.0); MEAN CORPUSCULAR VOLUME 100.9 fl (82.0-101.0); MEAN PLATELET VOLUME 12.2 fl (7.4-10.4); MONOCYTE # 0.4 10^3/ul (0.3-0.9); MONOCYTES % 10.3 % (0.0-11.0); NEUTROPHILS % 47.4 % (39.0-77.0); PLATELET COUNT 145 10^3/UL (140-415); RED BLOOD COUNT 4.46 10^6/ul (4.70-6.10); RED CELL DISTRIBUTION WIDTH 14.6 % (11.5-14.5); WHITE BLOOD COUNT 4.2 10^3/ul (4.8-10.8)
[2016-08-04 07:21] LABS: POTASSIUM 4.4 mmol/L (3.5-5.1)
[2016-08-04 07:23] LABS: CREATININE 0.76 mg/dl (0.61-1.24)
[2016-08-04 07:24] LABS: CALCIUM 9.1 mg/dl (8.4-10.2)
[2016-08-04] MEDS: VALPROIC ACID LIQUID CUP 250 MG/5 ML CUP GTB SCH ×2 (08:27→20:30)
[2016-08-04] MEDS: DOCUSATE SODIUM 10 MG/ML (10ML CUP) GTB SCH (08:27)
[2016-08-04] MEDS: ENOXAPARIN 30 MG/0.3 ML SYG SC SCH (08:34)
--- NOTE | 2016-08-04 10:20 | PN ---
Date/Time of Note Date/Time of Note DATE: 08/04/16 TIME: 10:20 Assessment/Plan VTE Prophylaxis VTE Prophylaxis Intervention: other Lines/Catheters IV Catheter Type (from Nrs): Peripheral IV Urinary Cath still in place: Yes Reason Cath still needed: skin wounds contaminated by urine Assessment/Plan Chief Complaint/Hosp Course - Atrial fibrillation with slow ventricular response. Telemetry monitoring. Dr. Branch is asked to see patient in cardiology consultation. - Hypothyroidism. TSH is within normal limits, continue current dose of Synthroid. - Seizure disorder. Continue valproic acid. - History of cerebrovascular accident. Continue aspirin. - Ventilator-dependent respiratory failure. Dr. Paredes is following in pulmonology consultation. - Dysphagia with G-tube. Continue G-tube feeding, monitor residual. - History of chronic obstructive pulmonary disease. Problems: Subjective 24 Hr Interval Summary Free Text/Dictation Patient has no complaints Exam/Review of Systems Vital Signs Vitals Vital Signs Date Time Temp Pulse Resp B/P Pulse Ox O2 Delivery O2 Flow Rate FiO2 08/04/16 10:08 40 08/04/16 09:00 40 19 96 08/04/16 08:03 98.2 113/63 Intake and Output 08/03/16 08/03/16 08/04/16 15:00 23:00 07:00 Intake Total 1500 ml 1695 ml Output Total 1600 ml 800 ml Balance -100 ml 895 ml Exam Constitutional: well developed Head: atraumatic, normocephalic Neck: supple Respiratory: clear to auscultation Cardiovascular: regular rate and rhythm Extremities: normal pulses Results Result Diagram: 08/04/16 0615 08/04/16 0605 Results 24 hrs Laboratory Tests Test 08/04/16 06:05 08/04/16 06:15 Sodium Level 144 Potassium Level 4.4 Chloride Level 115 H Carbon Dioxide Level 25 Anion Gap 8 Blood Urea Nitrogen 18 Creatinine 0.76 Glucose Level 91 Calcium Level 9.1 White Blood Count 4.2 L Red Blood Count 4.46 L Hemoglobin 13.8 L Hematocrit 45.0 Mean Corpuscular Volume 100.9 Mean Corpuscular Hemoglobin 30.9 Mean Corpuscular Hemoglobin Concent 30.7 L Red Cell Distribution Width 14.6 H Platelet Count 145 Mean Platelet Volume 12.2 H Neutrophils % 47.4 Lymphocytes % 37.9 Monocytes % 10.3 Eosinophils % 3.4 Basophils % 0.5 Nucleated Red Blood Cells % 0.0 Neutrophils # 2.0 Lymphocytes # 1.6 Monocytes # 0.4 Eosinophils # 0.1 Basophils # 0.0 Nucleated Red Blood Cells # 0.0 Medications Medications Current Medications Acetaminophen (Tylenol Liquid) 650 mg Q6H PRN GTB PAIN; Start 07/29/16 at 17:30 Brimonidine Tartrate (Alphagan P 0.15%) 1 drop Q8 BOTH EYES Last administered on 08/04/16 06:12; Admin Dose 1 DROP; Start 07/29/16 at 22:00 Docusate Sodium (Colace Liquid Cup) 100 mg DAILY GTB Last administered on 08:27; Admin Dose 100 MG; Start 07/30/16 at 09:00 Midodrine (Proamatine) 5 mg Q8 GTB Last administered on 08/04/16 06:11; Admin Dose 5 MG; Start 07/29/16 at 22:00 Senna (Senokot) 1 tab QHS GTB Last administered on 08/03/16 20:55; Admin Dose 1 TAB; Start 07/29/16 at 21:00 Latanoprost (Xalatan) 1 drop QHS BOTH EYES Last administered on 08/03/16 20:55 ; Admin Dose 1 DROP; Start 07/29/16 at 21:00 Valproate Sodium 500 mg 500 mg Q12 GTB Last administered on 08/04/16 08:27; Admin Dose 500 MG; Start 07/29/16 at 21:00 Potassium Chloride/Sodium Chloride (1/2 NS + KCl 20 Meq) 1,000 ml @ 50 mls/hr Q20H IV Last administered on 08/03/16 18:03; Admin Dose 50 MLS/HR; Start 07/30 at 14:30 Enoxaparin Sodium (Lovenox) 30 mg DAILY SC Last administered on 08/04/16 08:34 ; Admin Dose 30 MG; Start 07/31/16 at 09:00 Lansoprazole (Prevacid) 30 mg DAILY@06 GTB Last administered on 08/04/16 06:11 ; Admin Dose 30 MG; Start 08/04/16 at 06:00 MICHAEL RIOS August 04, 2016 10:20
--- NOTE | 2016-08-04 13:18 | CONS ---
Date/Time of Note Date/Time of Note DATE: 08/04/16 TIME: 13:17 Assessment/Plan Assessment/Plan Additional Assessment/Plan VDRF Anoxic Encephalopathy Hypertension Hypothyroidism Seizures Dysphagia s/p G Tube Rhythm Sinus Bradycardia BP Controlled Continue Ventilator support Continue aggressive pulmonary toiletry Continue Midodrine Continue GI and DVT Prophylaxis Continue Levothyroxine Avoid AV Sarah Blockers Consultation Date/Type/Reason Admit Date/Time July 30, 2016 at 15:03 Type of Consultation: Pulm Referring Provider: HALLE FLOYD MD Exam/Review of Systems Vital Signs Vitals Vital Signs Date Time Temp Pulse Resp B/P Pulse Ox O2 Delivery O2 Flow Rate FiO2 08/04/16 12:29 43 08/04/16 11:57 98.6 18 105/58 98 08/04/16 11:25 35 Intake and Output 08/03/16 08/03/16 08/04/16 15:00 23:00 07:00 Intake Total 1500 ml 1695 ml Output Total 1600 ml 800 ml Balance -100 ml 895 ml Exam Gen: Non responsive Neck Trach on ventilator CVS: RRR, No m/r/g Chest Mechanical breath sounds heard bilaterally Abdomen BS heard Ext No pedal edema Results Result Diagram: 08/04/16 0615 08/04/16 0605 Results 24 hrs Laboratory Tests Test 08/04/16 06:05 08/04/16 06:15 Sodium Level 144 Potassium Level 4.4 Chloride Level 115 H Carbon Dioxide Level 25 Anion Gap 8 Blood Urea Nitrogen 18 Creatinine 0.76 Glucose Level 91 Calcium Level 9.1 White Blood Count 4.2 L Red Blood Count 4.46 L Hemoglobin 13.8 L Hematocrit 45.0 Mean Corpuscular Volume 100.9 Mean Corpuscular Hemoglobin 30.9 Mean Corpuscular Hemoglobin Concent 30.7 L Red Cell Distribution Width 14.6 H Platelet Count 145 Mean Platelet Volume 12.2 H Neutrophils % 47.4 Lymphocytes % 37.9 Monocytes % 10.3 Eosinophils % 3.4 Basophils % 0.5 Nucleated Red Blood Cells % 0.0 Neutrophils # 2.0 Lymphocytes # 1.6 Monocytes # 0.4 Eosinophils # 0.1 Basophils # 0.0 Nucleated Red Blood Cells # 0.0 Medications Medications Current Medications Acetaminophen (Tylenol Liquid) 650 mg Q6H PRN GTB PAIN; Start 07/29/16 at 17:30 Brimonidine Tartrate (Alphagan P 0.15%) 1 drop Q8 BOTH EYES Last administered on 08/04/16 06:12; Admin Dose 1 DROP; Start 07/29/16 at 22:00 Docusate Sodium (Colace Liquid Cup) 100 mg DAILY GTB Last administered on 08:27; Admin Dose 100 MG; Start 07/30/16 at 09:00 Midodrine (Proamatine) 5 mg Q8 GTB Last administered on 08/04/16 06:11; Admin Dose 5 MG; Start 07/29/16 at 22:00 Senna (Senokot) 1 tab QHS GTB Last administered on 08/03/16 20:55; Admin Dose 1 TAB; Start 07/29/16 at 21:00 Latanoprost (Xalatan) 1 drop QHS BOTH EYES Last administered on 08/03/16 20:55 ; Admin Dose 1 DROP; Start 07/29/16 at 21:00 Valproate Sodium 500 mg 500 mg Q12 GTB Last administered on 08/04/16 08:27; Admin Dose 500 MG; Start 07/29/16 at 21:00 Potassium Chloride/Sodium Chloride (1/2 NS + KCl 20 Meq) 1,000 ml @ 50 mls/hr Q20H IV Last administered on 08/03/16 18:03; Admin Dose 50 MLS/HR; Start 07/30 at 14:30 Enoxaparin Sodium (Lovenox) 30 mg DAILY SC Last administered on 08/04/16 08:34 ; Admin Dose 30 MG; Start 07/31/16 at 09:00 Lansoprazole (Prevacid) 30 mg DAILY@06 GTB Last administered on 08/04/16 06:11 ; Admin Dose 30 MG; Start 08/04/16 at 06:00 DEYA HOWARD M.D. August 04, 2016 13:18
--- NOTE | 2016-08-04 13:27 | CONS ---
Date/Time of Note Date/Time of Note DATE: 08/04/16 TIME: 13:26 Consult Date/Type/Reason Admit Date/Time July 30, 2016 at 15:03 Type of Consultation: Pulm Ordering Provider: HALLE FLOYD MD Subjective No events on MV. Objective Vital Signs Date Time Temp Pulse Resp B/P Pulse Ox O2 Delivery O2 Flow Rate FiO2 08/04/16 12:29 43 08/04/16 11:57 98.6 18 105/58 98 08/04/16 11:25 35 Intake and Output 08/03/16 08/03/16 08/04/16 15:00 23:00 07:00 Intake Total 1500 ml 1695 ml Output Total 1600 ml 800 ml Balance -100 ml 895 ml Exam NECK: Trach site clean and intact. CARDIAC: Irreg irreg S1, S2 CHEST: Diminished air entry bilaterally. ABDOMEN: Soft, nontender. No guarding or rebound. EXTREMITIES: No cyanosis, clubbing. Edema +1. Results/Medications Result Diagram: 08/04/16 0615 08/04/16 0605 Results 24 hrs Laboratory Tests Test 08/04/16 06:05 08/04/16 06:15 Sodium Level 144 Potassium Level 4.4 Chloride Level 115 H Carbon Dioxide Level 25 Anion Gap 8 Blood Urea Nitrogen 18 Creatinine 0.76 Glucose Level 91 Calcium Level 9.1 White Blood Count 4.2 L Red Blood Count 4.46 L Hemoglobin 13.8 L Hematocrit 45.0 Mean Corpuscular Volume 100.9 Mean Corpuscular Hemoglobin 30.9 Mean Corpuscular Hemoglobin Concent 30.7 L Red Cell Distribution Width 14.6 H Platelet Count 145 Mean Platelet Volume 12.2 H Neutrophils % 47.4 Lymphocytes % 37.9 Monocytes % 10.3 Eosinophils % 3.4 Basophils % 0.5 Nucleated Red Blood Cells % 0.0 Neutrophils # 2.0 Lymphocytes # 1.6 Monocytes # 0.4 Eosinophils # 0.1 Basophils # 0.0 Nucleated Red Blood Cells # 0.0 Medications Current Medications Acetaminophen (Tylenol Liquid) 650 mg Q6H PRN GTB PAIN; Start 07/29/16 at 17:30 Brimonidine Tartrate (Alphagan P 0.15%) 1 drop Q8 BOTH EYES Last administered on 08/04/16t 06:12; Admin Dose 1 DROP; Start 07/29/16 at 22:00 Docusate Sodium (Colace Liquid Cup) 100 mg DAILY GTB Last administered on 08:27; Admin Dose 100 MG; Start 07/30/16 at 09:00 Midodrine (Proamatine) 5 mg Q8 GTB Last administered on 08/04/16 06:11; Admin Dose 5 MG; Start 07/29/16 at 22:00 Senna (Senokot) 1 tab QHS GTB Last administered on 08/03/16 20:55; Admin Dose 1 TAB; Start 07/29/16 at 21:00 Latanoprost (Xalatan) 1 drop QHS BOTH EYES Last administered on 08/03/16 20:55 ; Admin Dose 1 DROP; Start 07/29/16 at 21:00 Valproate Sodium 500 mg 500 mg Q12 GTB Last administered on 08/04/16 08:27; Admin Dose 500 MG; Start 07/29/16 at 21:00 Potassium Chloride/Sodium Chloride (1/2 NS + KCl 20 Meq) 1,000 ml @ 50 mls/hr Q20H IV Last administered on 08/03/16 18:03; Admin Dose 50 MLS/HR; Start 07/30 at 14:30 Enoxaparin Sodium (Lovenox) 30 mg DAILY SC Last administered on 08/04/16 08:34 ; Admin Dose 30 MG; Start 07/31/16 at 09:00 Lansoprazole (Prevacid) 30 mg DAILY@06 GTB Last administered on 08/04/16 06:11 ; Admin Dose 30 MG; Start 08/04/16 at 06:00 Assessment/Plan Additional Assessment/Plan IMPRESSION: : 1. Ventilator dependent respiratory failure. 2. Afib with slow VR/Sinus tyler 3. Anoxic encephalopathy. RECS: 1. Vent support. 2. BD's/CPT 3. Follow tele 4. TF/Free H20 TATIANA YBARRA MD August 04, 2016 13:27
[2016-08-04] MEDS: 1/2 NS + KCL 20 MEQ 1,000 ML IV SCH (13:57)
[2016-08-04] MEDS: LATANOPROST 0.005% 2.5 ML OPH BOTH EYES SCH (20:29)
[2016-08-04] MEDS: SENNA TAB GTB SCH (20:30)
[2016-08-05] VITALS (24 sets, daily range): BP systolic 99–114; BP diastolic 50–67; PULSE 38–50; RESP 16–23
[2016-08-05] MEDS: BRIMONIDINE 0.15% 5 ML OPH BOTH EYES SCH ×3 (06:09→21:39)
[2016-08-05] MEDS: LANSOPRAZOLE 30 MG CAP GTB SCH (06:09)
[2016-08-05] MEDS: LEVOTHYROXINE 175 MCG TAB GTB SCH (06:10)
[2016-08-05] MEDS: MIDODRINE 5 MG TAB GTB SCH ×3 (06:10→21:39)
--- NOTE | 2016-08-05 09:11 | CONS ---
Date/Time of Note Date/Time of Note DATE: 08/05/16 TIME: 09:06 Assessment/Plan Assessment/Plan Additional Assessment/Plan 1. Bradycardia with EKG and telemetry, most consistent with sinus bradycardia at this time.-to low of 36 overnight. Currently improved at 60-70. NL Free T4 - persistently in 40s - no evidence of hemodynamic instability - pt does not have a Class I indication for pacer - will discuss with Dr. Branch if tyler related chnages on BP were noted prior. 2. Questionable paroxysmal atrial fibrillation and from EKG reportedly done at [facility]- in sinus now. 3. Abnormal electrocardiogram with nonspecific ST-T abnormalities, assess for acute coronary syndrome.-negative trop x 3/Echo this admit NL EF55-60/DD/MR/TR 4. Hypotension, chronic on Midodrine - Rx as needed. 5. Respiratory failure, chronic, status post tracheostomy. 6. Dysphagia status post G-tube. 7. History anoxic encephalopathy- unchanged. 8. History of hypothyroidism with currently normal TSH. 9. Anemia, mild. Consultation Date/Type/Reason Admit Date/Time July 30, 2016 at 15:03 Initial Consult Date Type of Consultation: Pulm Referring Provider: HALLE FLOYD MD 24 HR Interval Summary Free Text/Dictation No acute events - BP in good range - now in sinus at 40s - christie monitor for now - will discuss pacer with Dr. Branch. ROS: No fever, no chills, no nausea, no vomiting, no diarrhea/constipation No recent weight changes No chest pain, no PND, no orthopnea No dizziness, blurred vision No thirst, no heat or cold intolerance (per nurse) Exam/Review of Systems Vital Signs Vitals Vital Signs Date Time Temp Pulse Resp B/P Pulse Ox O2 Delivery O2 Flow Rate FiO2 08/05/16 08:38 42 08/05/16 08:03 18 97 35 08/05/16 07:34 97.8 104/50 Intake and Output 08/04/16 08/04/16 08/05/16 15:00 23:00 07:00 Intake Total 850 ml Balance 850 ml Exam General: WN/WD/NAD, AOx 0 - eyes open HEENT: Unicetric/atraumatic/EOMI (does not follow commands) NECK: trach Lymph: no lymphadenopathy HEART: regular with no S3, II/ systolic murmur at apex LUNGS: Coarse sounds ABD: soft, NT, ND, +BS : Intact Neuro: non focal SKIN: chronic changes EXT: trace edema Results Result Diagram: 08/04/1615 08/04/16604 Medications Medications Current Medications Acetaminophen (Tylenol Liquid) 650 mg Q6H PRN GTB PAIN; Start 07/29/16 at 17:30 Brimonidine Tartrate (Alphagan P 0.15%) 1 drop Q8 BOTH EYES Last administered on 08/05/16 06:09; Admin Dose 1 DROP; Start 07/29/16 at 22:00 Docusate Sodium (Colace Liquid Cup) 100 mg DAILY GTB Last administered on 08:27; Admin Dose 100 MG; Start 07/30/16 at 09:00 Midodrine (Proamatine) 5 mg Q8 GTB Last administered on 08/05/16 06:10; Admin Dose 5 MG; Start 07/29/16 at 22:00 Senna (Senokot) 1 tab QHS GTB Last administered on 08/04/16 20:30; Admin Dose 1 TAB; Start 07/29/16 at 21:00 Latanoprost (Xalatan) 1 drop QHS BOTH EYES Last administered on 08/04/16 20:29 ; Admin Dose 1 DROP; Start 07/29/16 at 21:00 Valproate Sodium 500 mg 500 mg Q12 GTB Last administered on 08/04/16 20:30; Admin Dose 500 MG; Start 07/29/16 at 21:00 Potassium Chloride/Sodium Chloride (1/2 NS + KCl 20 Meq) 1,000 ml @ 50 mls/hr Q20H IV Last administered on 08/04/16 13:57; Admin Dose 50 MLS/HR; Start 07/30 at 14:30 Enoxaparin Sodium (Lovenox) 30 mg DAILY SC Last administered on 08/04/16 08:34 ; Admin Dose 30 MG; Start 07/31/16 at 09:00 Lansoprazole (Prevacid) 30 mg DAILY@06 GTB Last administered on 08/05/16 06:09 ; Admin Dose 30 MG; Start 08/04/16 at 06:00 SOY LECHUGA MD August 05, 2016 09:10
[2016-08-05] MEDS: DOCUSATE SODIUM 10 MG/ML (10ML CUP) GTB SCH (09:15)
[2016-08-05] MEDS: VALPROIC ACID LIQUID CUP 250 MG/5 ML CUP GTB SCH ×2 (09:15→21:08)
[2016-08-05] MEDS: ENOXAPARIN 30 MG/0.3 ML SYG SC SCH (09:19)
[2016-08-05] MEDS: 1/2 NS + KCL 20 MEQ 1,000 ML IV SCH (09:20)
--- NOTE | 2016-08-05 14:15 | CONS ---
Date/Time of Note Date/Time of Note DATE: 08/05/16 TIME: 14:14 Consult Date/Type/Reason Admit Date/Time July 30, 2016 at 15:03 Type of Consultation: Pulm Ordering Provider: HALLE FLOYD MD Subjective Patient comfortable this morning no new events Objective Vital Signs Date Time Temp Pulse Resp B/P Pulse Ox O2 Delivery O2 Flow Rate FiO2 08/05/16 13:22 50 08/05/16 13:20 18 98 35 08/05/16 11:48 97.8 114/67 Intake and Output 08/04/16 08/04/16 08/05/16 15:00 23:00 07:00 Intake Total 1070 ml 850 ml Output Total 900 ml Balance 170 ml 850 ml Exam PHYSICAL EXAMINATION GENERAL: Elderly gentleman, on mechanical ventilation via tracheostomy VITAL SIGNS: see below. HEENT: Pupils equal, round, and reactive to light. Tracheostomy site clean and intact. CARDIAC: S1, S2, 1/6 systolic ejection murmur CHEST: Diminished air entry bilaterally. ABDOMEN: Mildly distended. Bowel sounds present no guarding or rebound EXTREMITIES: No cyanosis, clubbing edema +1 NEUROLOGIC: Generalized weakness Results/Medications Result Diagram: 08/04/16 0615 08/04/16 0605 Medications Current Medications Acetaminophen (Tylenol Liquid) 650 mg Q6H PRN GTB PAIN; Start 07/29/16 at 17:30 Brimonidine Tartrate (Alphagan P 0.15%) 1 drop Q8 BOTH EYES Last administered on 08/05/16 13:55; Admin Dose 1 DROP; Start 07/29/16 at 22:00 Docusate Sodium (Colace Liquid Cup) 100 mg DAILY GTB Last administered on 09:15; Admin Dose 100 MG; Start 07/30/16 at 09:00 Midodrine (Proamatine) 5 mg Q8 GTB Last administered on 08/05/16 06:10; Admin Dose 5 MG; Start 07/29/16 at 22:00 Senna (Senokot) 1 tab QHS GTB Last administered on 08/04/16 20:30; Admin Dose 1 TAB; Start 07/29/16 at 21:00 Latanoprost (Xalatan) 1 drop QHS BOTH EYES Last administered on 08/04/16 20:29 ; Admin Dose 1 DROP; Start 07/29/16 at 21:00 Valproate Sodium 500 mg 500 mg Q12 GTB Last administered on 08/05/16 09:15; Admin Dose 500 MG; Start 07/29/16 at 21:00 Potassium Chloride/Sodium Chloride (1/2 NS + KCl 20 Meq) 1,000 ml @ 50 mls/hr Q20H IV Last administered on 08/05/16 09:20; Admin Dose 50 MLS/HR; Start 07/30 at 14:30 Enoxaparin Sodium (Lovenox) 30 mg DAILY SC Last administered on 08/05/16 09:19 ; Admin Dose 30 MG; Start 07/31/16 at 09:00 Lansoprazole (Prevacid) 30 mg DAILY@06 GTB Last administered on 08/05/16 06:09 ; Admin Dose 30 MG; Start 08/04/16 at 06:00 Assessment/Plan Chief Complaint/Hosp Course Additional Assessment/Plan IMPRESSION: : 1. Ventilator dependent respiratory failure. 2. Afib with slow VR/Sinus tyler 3. Anoxic encephalopathy. RECS: 1. Vent support. 2. BD's/CPT 3. Follow tele 4. TF/Free H20 DC planning okay from pulmonary standpoint Problems: KINGS MILLER MD, [facility] August 05, 2016 14:15
--- NOTE | 2016-08-05 19:26 | PN ---
Date/Time of Note Date/Time of Note DATE: 08/05/16 TIME: 19:22 Assessment/Plan VTE Prophylaxis VTE Prophylaxis Intervention: SCD's Lines/Catheters IV Catheter Type (from Nrs): Peripheral IV Urinary Cath still in place: Yes Reason Cath still needed: urinary retention Assessment/Plan Chief Complaint/Hosp Course Patient's continues to be bradycardic with heart rate going to 38 bpm. ASSESSMENT AND PLAN: - Atrial fibrillation with slow ventricular response. Dr. Branch is asked to see patient in cardiology consultation. - Hypothyroidism. TSH is within normal limits, continue current dose of Synthroid. - Seizure disorder. Continue valproic acid. - History of cerebrovascular accident. Continue aspirin. - Ventilator-dependent respiratory failure. Dr. Paredes is following in pulmonology consultation. - Dysphagia with G-tube. Continue G-tube feeding, monitor residual. - History of chronic obstructive pulmonary disease. Continue Lovenox for deep venous thrombosis prophylaxis and Protonix for peptic ulcer disease prophylaxis. Further recommendations based on clinical course. Plan of care discussed with Dr. Pierre. Problems: Exam/Review of Systems Vital Signs Vitals Vital Signs Date Time Temp Pulse Resp B/P Pulse Ox O2 Delivery O2 Flow Rate FiO2 08/05/16 17:15 48 18 99 35 08/05/16 15:42 98.0 100/55 Intake and Output 08/04/16 08/04/16 08/05/16 15:00 23:00 07:00 Intake Total 1070 ml 850 ml Output Total 900 ml Balance 170 ml 850 ml Exam Constitutional: frail Head: normocephalic Neck: supple Respiratory: normal air movement, other Cardiovascular: nl pulses Gastrointestinal: non-tender (Tracheostomy), other (G-tube), soft Extremities: normal pulses Results Result Diagram: 08/04/16 0615 08/04/16 0605 Medications Medications Current Medications Acetaminophen (Tylenol Liquid) 650 mg Q6H PRN GTB PAIN; Start 07/29/16 at 17:30 Brimonidine Tartrate (Alphagan P 0.15%) 1 drop Q8 BOTH EYES Last administered on 08/05/16 13:55; Admin Dose 1 DROP; Start 07/29/16 at 22:00 Docusate Sodium (Colace Liquid Cup) 100 mg DAILY GTB Last administered on 09:15; Admin Dose 100 MG; Start 07/30/16 at 09:00 Midodrine (Proamatine) 5 mg Q8 GTB Last administered on 08/05/16 06:10; Admin Dose 5 MG; Start 07/29/16 at 22:00 Senna (Senokot) 1 tab QHS GTB Last administered on 08/04/16 20:30; Admin Dose 1 TAB; Start 07/29/16 at 21:00 Latanoprost (Xalatan) 1 drop QHS BOTH EYES Last administered on 08/04/16 20:29 ; Admin Dose 1 DROP; Start 07/29/16 at 21:00 Valproate Sodium 500 mg 500 mg Q12 GTB Last administered on 08/05/16 09:15; Admin Dose 500 MG; Start 07/29/16 at 21:00 Potassium Chloride/Sodium Chloride (1/2 NS + KCl 20 Meq) 1,000 ml @ 50 mls/hr Q20H IV Last administered on 08/05/16 09:20; Admin Dose 50 MLS/HR; Start 07/30 at 14:30 Enoxaparin Sodium (Lovenox) 30 mg DAILY SC Last administered on 08/05/16 09:19 ; Admin Dose 30 MG; Start 07/31/16 at 09:00 Lansoprazole (Prevacid) 30 mg DAILY@06 GTB Last administered on 08/05/16 06:09 ; Admin Dose 30 MG; Start 08/04/16 at 06:00 BRAYAN HUDSON August 05, 2016 19:26
[2016-08-05] MEDS: SENNA TAB GTB SCH (21:07)
[2016-08-05] MEDS: LATANOPROST 0.005% 2.5 ML OPH BOTH EYES SCH (21:08)
[2016-08-06] VITALS (23 sets, daily range): BP systolic 99–115; BP diastolic 52–58; PULSE 35–45; RESP 15–20
[2016-08-06] MEDS: 1/2 NS + KCL 20 MEQ 1,000 ML IV SCH (05:16)
[2016-08-06] MEDS: BRIMONIDINE 0.15% 5 ML OPH BOTH EYES SCH ×3 (05:26→21:35)
[2016-08-06] MEDS: LANSOPRAZOLE 30 MG CAP GTB SCH (06:09)
[2016-08-06] MEDS: MIDODRINE 5 MG TAB GTB SCH ×3 (06:09→21:36)
[2016-08-06] MEDS: LEVOTHYROXINE 175 MCG TAB GTB SCH (06:25)
[2016-08-06 06:41] LABS: ADD SCAN DIFF NO
[2016-08-06 07:09] LABS: CALCIUM 9.1 mg/dl (8.4-10.2); CREATININE 0.7 mg/dl (0.61-1.24); POTASSIUM 4.4 mmol/L (3.5-5.1)
[2016-08-06] MEDS: VALPROIC ACID LIQUID CUP 250 MG/5 ML CUP GTB SCH ×2 (08:10→20:27)
[2016-08-06] MEDS: DOCUSATE SODIUM 10 MG/ML (10ML CUP) GTB SCH (08:10)
[2016-08-06] MEDS: ENOXAPARIN 30 MG/0.3 ML SYG SC SCH (08:14)
[2016-08-06 10:33] LABS: BASOPHILS % 0.6 % (0.0-2.0); EOSINOPHILS # 0.1 10^3/ul (0.0-0.5); HEMATOCRIT 41.6 % (42.0-52.0); HEMOGLOBIN 12.9 g/dl (14.0-18.0); LYMPHOCYTES # 1.8 10^3/ul (0.8-2.9); LYMPHOCYTES % 38.3 % (15.0-51.0); MEAN CORPUSCULAR HEMOGLOBIN 31.2 pg (29.0-33.0); MEAN CORPUSCULAR VOLUME 100.5 fl (82.0-101.0); MEAN PLATELET VOLUME 12.6 fl (7.4-10.4); MONOCYTE # 0.4 10^3/ul (0.3-0.9); MONOCYTES % 8.9 % (0.0-11.0); NEUTROPHIL # 2.2 10^3/ul (1.6-7.5); NEUTROPHILS % 48.6 % (39.0-77.0); PLATELET COUNT 146 10^3/UL (140-415); RED BLOOD COUNT 4.14 10^6/ul (4.70-6.10); WHITE BLOOD COUNT 4.6 10^3/ul (4.8-10.8)
--- NOTE | 2016-08-06 13:55 | CONS ---
Date/Time of Note Date/Time of Note DATE: 08/06/16 TIME: 13:51 Assessment/Plan Assessment/Plan Chief Complaint/Hosp Course IMPRESSION: 1. Bradycardia with EKG and telemetry, most consistent with sinus bradycardia at this time.-to low of 35 overnight. Currently 40's. NL Free T4 2. Questionable paroxysmal atrial fibrillation and from EKG reportedly done at [facility] care [facility]. 3. Abnormal electrocardiogram with nonspecific ST-T abnormalities, assess for acute coronary syndrome.-negative trop x 3/Echo this admit NL EF55-60/DD/MR/TR 4. Hypotension, chronic on Midodrine. 5. Respiratory failure, chronic, status post tracheostomy. 6. Dysphagia status post G-tube. 7. History anoxic encephalopathy. 8. History of hypothyroidism with currently normal TSH. 9. Anemia, mild. Recc: -Tele -follow rate/rhythm closely - Sched for possible PPM this thursday tenatively -Continue midodrine BP support -Contnue synthroid Problems: Consultation Date/Type/Reason Admit Date/Time July 30, 2016 at 15:03 Initial Consult Date 07/30/2016 Type of Consultation: Cardiology Reason for Consultation bradycardia Referring Provider: HALLE FLOYD MD Exam/Review of Systems Vital Signs Vitals Vital Signs Date Time Temp Pulse Resp B/P Pulse Ox O2 Delivery O2 Flow Rate FiO2 08/06/16 13:02 44 18 99 35 08/06/16 11:38 97.9 99/52 08/06/16 00:00 Mechanical Ventilator Intake and Output 08/05/16 08/05/16 08/06/16 15:00 23:00 07:00 Intake Total 100 ml 1450 ml 1600 ml Output Total 1900 ml 950 ml Balance 100 ml -450 ml 650 ml Exam Review of Systems: CONSTITUTIONAL: No fevers, chills. PULMONARY: trached CARDIOVASCULAR: No obvious chest pain/palpitations GASTROINTESTINAL: No nausea/vomiting. GENITOURINARY: No hematuria/dysuria. MUSCULOSKELETAL: No obvious myagias/arthalgias. PSYCHIATRIC: The patient denies depression. NEUROLOGIC: Encephalopathy Constitutional: other (encephalopathic) Psych: no complaints Head: normocephalic ENMT: mucosa pink and moist Neck: jvd (9 cm water), supple Respiratory: diminished breath sounds (at bases/B) Cardiovascular: regular rate and rhythm Gastrointestinal: non-tender, soft Musculoskeletal: muscle weakness (generalized) Extremities: edema (none) Neurological: confused, lethargic Results Result Diagram: 08/06/16 0557 08/06/16 0557 Results 24 hrs Laboratory Tests Test 08/06/16 05:57 White Blood Count 4.6 L Red Blood Count 4.14 L Hemoglobin 12.9 L Hematocrit 41.6 L Mean Corpuscular Volume 100.5 Mean Corpuscular Hemoglobin 31.2 Mean Corpuscular Hemoglobin Concent 31.0 L Red Cell Distribution Width 15.0 H Platelet Count 146 Mean Platelet Volume 12.6 H Neutrophils % 48.6 Lymphocytes % 38.3 Monocytes % 8.9 Eosinophils % 3.0 Basophils % 0.6 Nucleated Red Blood Cells % 0.0 Neutrophils # 2.2 Lymphocytes # 1.8 Monocytes # 0.4 Eosinophils # 0.1 Basophils # 0.0 Nucleated Red Blood Cells # 0.0 Sodium Level 139 Potassium Level 4.4 Chloride Level 111 H Carbon Dioxide Level 23 Anion Gap 9 Blood Urea Nitrogen 18 Creatinine 0.70 Glucose Level 98 Calcium Level 9.1 Medications Medications Current Medications Acetaminophen (Tylenol Liquid) 650 mg Q6H PRN GTB PAIN; Start 07/29/16 at 17:30 Brimonidine Tartrate (Alphagan P 0.15%) 1 drop Q8 BOTH EYES Last administered on 08/06/16 13:22; Admin Dose 1 DROP; Start 07/29/16 at 22:00 Docusate Sodium (Colace Liquid Cup) 100 mg DAILY GTB Last administered on 08:10; Admin Dose 100 MG; Start 07/30/16 at 09:00 Midodrine (Proamatine) 5 mg Q8 GTB Last administered on 08/06/16 13:21; Admin Dose 5 MG; Start 07/29/16 at 22:00 Senna (Senokot) 1 tab QHS GTB Last administered on 08/05/16 21:07; Admin Dose 1 TAB; Start 07/29/16 at 21:00 Latanoprost (Xalatan) 1 drop QHS BOTH EYES Last administered on 08/05/16 21:08 ; Admin Dose 1 DROP; Start 07/29/16 at 21:00 Valproate Sodium 500 mg 500 mg Q12 GTB Last administered on 5/31/17at 08:10; Admin Dose 500 MG; Start 07/29/16 at 21:00 Potassium Chloride/Sodium Chloride (1/2 NS + KCl 20 Meq) 1,000 ml @ 50 mls/hr Q20H IV Last administered on 08/06/16 05:16; Admin Dose 50 MLS/HR; Start 07/30 at 14:30 Enoxaparin Sodium (Lovenox) 30 mg DAILY SC Last administered on 08/06/16 08:14 ; Admin Dose 30 MG; Start 07/31/16 at 09:00 Lansoprazole (Prevacid) 30 mg DAILY@06 GTB Last administered on 08/06/16 06:09 ; Admin Dose 30 MG; Start 08/04/16 at 06:00 YUSUF VASQUEZ August 06, 2016 13:55
--- NOTE | 2016-08-06 15:36 | CONS ---
Date/Time of Note Date/Time of Note DATE: 08/06/16 TIME: 15:35 Consult Date/Type/Reason Admit Date/Time July 30, 2016 at 15:03 Type of Consultation: Pulmonary Ordering Provider: HALLE FLOYD MD Subjective Patient remains bradycardic but asymptomatic Remains unresponsive on mechanical ventilation Objective Vital Signs Date Time Temp Pulse Resp B/P Pulse Ox O2 Delivery O2 Flow Rate FiO2 08/06/16 14:59 45 18 97 35 08/06/16 11:38 97.9 99/52 08/06/16 00:00 Mechanical Ventilator Intake and Output 08/05/16 08/05/16 08/06/16 14:59 22:59 06:59 Intake Total 100 ml 1450 ml 1600 ml Output Total 1900 ml 950 ml Balance 100 ml -450 ml 650 ml Exam PHYSICAL EXAMINATION GENERAL: Elderly gentleman, on mechanical ventilation via tracheostomy VITAL SIGNS: see below. HEENT: Pupils equal, round, and reactive to light. Tracheostomy site clean and intact. CARDIAC: S1, S2, 1/6 systolic ejection murmur CHEST: Diminished air entry bilaterally. ABDOMEN: Mildly distended. Bowel sounds present no guarding or rebound EXTREMITIES: No cyanosis, clubbing edema +1 NEUROLOGIC: Generalized weakness Results/Medications Result Diagram: 08/06/16 0557 08/06/16 0557 Results 24 hrs Laboratory Tests Test 08/06/16 05:57 White Blood Count 4.6 L Red Blood Count 4.14 L Hemoglobin 12.9 L Hematocrit 41.6 L Mean Corpuscular Volume 100.5 Mean Corpuscular Hemoglobin 31.2 Mean Corpuscular Hemoglobin Concent 31.0 L Red Cell Distribution Width 15.0 H Platelet Count 146 Mean Platelet Volume 12.6 H Neutrophils % 48.6 Lymphocytes % 38.3 Monocytes % 8.9 Eosinophils % 3.0 Basophils % 0.6 Nucleated Red Blood Cells % 0.0 Neutrophils # 2.2 Lymphocytes # 1.8 Monocytes # 0.4 Eosinophils # 0.1 Basophils # 0.0 Nucleated Red Blood Cells # 0.0 Sodium Level 139 Potassium Level 4.4 Chloride Level 111 H Carbon Dioxide Level 23 Anion Gap 9 Blood Urea Nitrogen 18 Creatinine 0.70 Glucose Level 98 Calcium Level 9.1 Medications Current Medications Acetaminophen (Tylenol Liquid) 650 mg Q6H PRN GTB PAIN; Start 07/29/16 at 17:30 Brimonidine Tartrate (Alphagan P 0.15%) 1 drop Q8 BOTH EYES Last administered on 08/06/16 13:22; Admin Dose 1 DROP; Start 07/29/16 at 22:00 Docusate Sodium (Colace Liquid Cup) 100 mg DAILY GTB Last administered on 08:10; Admin Dose 100 MG; Start 07/30/16 at 09:00 Midodrine (Proamatine) 5 mg Q8 GTB Last administered on 08/06/16 13:21; Admin Dose 5 MG; Start 07/29/16 at 22:00 Senna (Senokot) 1 tab QHS GTB Last administered on 08/05/16 21:07; Admin Dose 1 TAB; Start 07/29/16 at 21:00 Latanoprost (Xalatan) 1 drop QHS BOTH EYES Last administered on 08/05/16 21:08 ; Admin Dose 1 DROP; Start 07/29/16 at 21:00 Valproate Sodium 500 mg 500 mg Q12 GTB Last administered on 08/06/16 08:10; Admin Dose 500 MG; Start 07/29/16 at 21:00 Potassium Chloride/Sodium Chloride (1/2 NS + KCl 20 Meq) 1,000 ml @ 50 mls/hr Q20H IV Last administered on 08/06/16 05:16; Admin Dose 50 MLS/HR; Start 07/30 at 14:30 Enoxaparin Sodium (Lovenox) 30 mg DAILY SC Last administered on 08/06/16 08:14 ; Admin Dose 30 MG; Start 07/31/16 at 09:00 Lansoprazole (Prevacid) 30 mg DAILY@06 GTB Last administered on 08/06/16 06:09 ; Admin Dose 30 MG; Start 08/04/16 at 06:00 Assessment/Plan Chief Complaint/Hosp Course IMPRESSION: 1. Ventilator dependent respiratory failure. 2. Afib with slow VR/Sinus tyler 3. Anoxic encephalopathy. RECS: 1. Vent support. 2. BD's/CPT 3. Follow tele 4. TF/Free H20 Scheduled for pacemaker this Thursday Problems: KINGS MILLER MD, [facility] August 06, 2016 15:36
--- NOTE | 2016-08-06 18:07 | PN ---
Date/Time of Note Date/Time of Note DATE: 08/06/16 TIME: 18:05 Assessment/Plan VTE Prophylaxis VTE Prophylaxis Intervention: SCD's Lines/Catheters IV [facility] Type (from [facility] Peripheral IV Urinary Cath still in place: Yes Reason Cath still needed: urinary retention Assessment/Plan Chief Complaint/Hosp Course Patient's continues to be bradycardic, plan for permanent pacemaker insertion upon or availability. ASSESSMENT AND PLAN: -Paroxysmal atrial fibrillation with slow ventricular response. Currently sinus bradycardia. Dr. Branch is asked to see patient in cardiology consultation. - Hypothyroidism. TSH is within normal limits, continue current dose of Synthroid. - Seizure disorder. Continue valproic acid. - History of cerebrovascular accident. Continue aspirin. - Ventilator-dependent respiratory failure. Dr. Paredes is following in pulmonology consultation. - Dysphagia with G-tube. Continue G-tube feeding, monitor residual. - History of chronic obstructive pulmonary disease. Continue Lovenox for deep venous thrombosis prophylaxis and Protonix for peptic ulcer disease prophylaxis. Further recommendations based on clinical course. Plan of care discussed with Dr. Pierre. Problems: Exam/Review of Systems Vital Signs Vitals Vital Signs Date Time Temp Pulse Resp B/P Pulse Ox O2 Delivery O2 Flow Rate FiO2 08/06/16 16:57 41 08/06/16 16:56 98 08/06/16 16:04 98.2 18 102/56 08/06/16 14:59 35 08/06/16 00:00 Mechanical Ventilator Intake and Output 08/05/16 08/05/16 08/06/16 15:00 23:00 07:00 Intake Total 100 ml 1450 ml 1600 ml Output Total 1900 ml 950 ml Balance 100 ml -450 ml 650 ml Exam Constitutional: frail Head: normocephalic Neck: supple Respiratory: normal air movement, other Cardiovascular: nl pulses Gastrointestinal: non-tender (Tracheostomy), other (G-tube), soft Extremities: normal pulses Results Result Diagram: 08/06/16 0557 08/06/16 0557 Results 24 hrs Laboratory Tests Test 08/06/16 05:57 White Blood Count 4.6 L Red Blood Count 4.14 L Hemoglobin 12.9 L Hematocrit 41.6 L Mean Corpuscular Volume 100.5 Mean Corpuscular Hemoglobin 31.2 Mean Corpuscular Hemoglobin Concent 31.0 L Red Cell Distribution Width 15.0 H Platelet Count 146 Mean Platelet Volume 12.6 H Neutrophils % 48.6 Lymphocytes % 38.3 Monocytes % 8.9 Eosinophils % 3.0 Basophils % 0.6 Nucleated Red Blood Cells % 0.0 Neutrophils # 2.2 Lymphocytes # 1.8 Monocytes # 0.4 Eosinophils # 0.1 Basophils # 0.0 Nucleated Red Blood Cells # 0.0 Sodium Level 139 Potassium Level 4.4 Chloride Level 111 H Carbon Dioxide Level 23 Anion Gap 9 Blood Urea Nitrogen 18 Creatinine 0.70 Glucose Level 98 Calcium Level 9.1 Medications Medications Current Medications Acetaminophen (Tylenol Liquid) 650 mg Q6H PRN GTB PAIN; Start 07/29/16 at 17:30 Brimonidine Tartrate (Alphagan P 0.15%) 1 drop Q8 BOTH EYES Last administered on 08/06/16 13:22; Admin Dose 1 DROP; Start 07/29/16 at 22:00 Docusate Sodium (Colace Liquid Cup) 100 mg DAILY GTB Last administered on 08:10; Admin Dose 100 MG; Start 07/30/16 at 09:00 Midodrine (Proamatine) 5 mg Q8 GTB Last administered on 08/06/16 13:21; Admin Dose 5 MG; Start 07/29/16 at 22:00 Senna (Senokot) 1 tab QHS GTB Last administered on 08/05/16 21:07; Admin Dose 1 TAB; Start 07/29/16 at 21:00 Latanoprost (Xalatan) 1 drop QHS BOTH EYES Last administered on 08/05/16 21:08 ; Admin Dose 1 DROP; Start 07/29/16 at 21:00 Valproate Sodium 500 mg 500 mg Q12 GTB Last administered on 08/06/16 08:10; Admin Dose 500 MG; Start 07/29/16 at 21:00 Potassium Chloride/Sodium Chloride (1/2 NS + KCl 20 Meq) 1,000 ml @ 50 mls/hr Q20H IV Last administered on 08/06/16 05:16; Admin Dose 50 MLS/HR; Start 07/30 at 14:30 Enoxaparin Sodium (Lovenox) 30 mg DAILY SC Last administered on 08/06/16 08:14 ; Admin Dose 30 MG; Start 07/31/16 at 09:00 Lansoprazole (Prevacid) 30 mg DAILY@06 GTB Last administered on 08/06/16t 06:09 ; Admin Dose 30 MG; Start 08/04/16 at 06:00 BRAYAN HUDSON August 06, 2016 18:07
[2016-08-06] MEDS: SENNA TAB GTB SCH (20:27)
[2016-08-06] MEDS: LATANOPROST 0.005% 2.5 ML OPH BOTH EYES SCH (20:27)
[2016-08-07] VITALS (23 sets, daily range): BP systolic 101–141; BP diastolic 52–71; PULSE 35–101; RESP 16–19
[2016-08-07] MEDS: 1/2 NS + KCL 20 MEQ 1,000 ML IV SCH ×2 (02:11→22:29)
[2016-08-07] MEDS: LANSOPRAZOLE 30 MG CAP GTB SCH (05:41)
[2016-08-07] MEDS: MIDODRINE 5 MG TAB GTB SCH ×3 (05:41→20:50)
[2016-08-07] MEDS: BRIMONIDINE 0.15% 5 ML OPH BOTH EYES SCH ×3 (05:42→20:37)
[2016-08-07] MEDS: LEVOTHYROXINE 175 MCG TAB GTB SCH (06:35)
[2016-08-07 07:34] LABS: ADD SCAN DIFF NO
[2016-08-07 07:43] LABS: BASOPHILS % 0.7 % (0.0-2.0); EOSINOPHILS # 0.2 10^3/ul (0.0-0.5); EOSINOPHILS % 3.7 % (0.0-7.0); HEMATOCRIT 44.5 % (42.0-52.0); HEMOGLOBIN 13.4 g/dl (14.0-18.0); LYMPHOCYTES # 1.6 10^3/ul (0.8-2.9); LYMPHOCYTES % 39.7 % (15.0-51.0); MEAN CORPUSCULAR HEMOGLOBIN 30.2 pg (29.0-33.0); MEAN CORPUSCULAR HGB CONC 30.1 g/dl (32.0-37.0); MEAN CORPUSCULAR VOLUME 100.5 fl (82.0-101.0); MEAN PLATELET VOLUME 11.9 fl (7.4-10.4); MONOCYTE # 0.3 10^3/ul (0.3-0.9); MONOCYTES % 7.5 % (0.0-11.0); NEUTROPHIL # 1.9 10^3/ul (1.6-7.5); NEUTROPHILS % 47.9 % (39.0-77.0); PLATELET COUNT 149 10^3/UL (140-415); RED BLOOD COUNT 4.43 10^6/ul (4.70-6.10); RED CELL DISTRIBUTION WIDTH 14.8 % (11.5-14.5)
[2016-08-07 08:03] LABS: CREATININE 0.69 mg/dl (0.61-1.24); POTASSIUM 5.4 mmol/L (3.5-5.1)
[2016-08-07] MEDS: DOCUSATE SODIUM 10 MG/ML (10ML CUP) GTB SCH (09:35)
[2016-08-07] MEDS: VALPROIC ACID LIQUID CUP 250 MG/5 ML CUP GTB SCH ×2 (09:36→20:41)
[2016-08-07] MEDS: ENOXAPARIN 30 MG/0.3 ML SYG SC SCH (09:40)
--- NOTE | 2016-08-07 12:20 | CONS ---
Date/Time of Note Date/Time of Note DATE: 08/07/16 TIME: 12:19 Consult Date/Type/Reason Admit Date/Time July 30, 2016 at 15:03 Type of Consultation: Pulmonary Ordering Provider: HALLE FLOYD MD Subjective Comfortable Objective Vital Signs Date Time Temp Pulse Resp B/P Pulse Ox O2 Delivery O2 Flow Rate FiO2 08/07/16 12:00 98.2 48 19 107/55 100 08/07/16 11:02 35 08/06/16 00:00 Mechanical Ventilator Intake and Output 08/06/16 08/06/16 08/07/16 15:00 23:00 07:00 Intake Total 1800 ml 1600 ml Output Total 2200 ml 1100 ml Balance -400 ml 500 ml Exam PHYSICAL EXAMINATION GENERAL: Elderly gentleman, on mechanical ventilation via tracheostomy VITAL SIGNS: see below. HEENT: Pupils equal, round, and reactive to light. Tracheostomy site clean and intact. CARDIAC: S1, S2, 1/6 systolic ejection murmur CHEST: Diminished air entry bilaterally. ABDOMEN: Mildly distended. Bowel sounds present no guarding or rebound EXTREMITIES: No cyanosis, clubbing edema +1 NEUROLOGIC: Generalized weakness Results/Medications Result Diagram: 08/07/16 0645 08/07/16 0645 Results 24 hrs Laboratory Tests Test 08/07/16 06:45 White Blood Count 4.0 L Red Blood Count 4.43 L Hemoglobin 13.4 L Hematocrit 44.5 Mean Corpuscular Volume 100.5 Mean Corpuscular Hemoglobin 30.2 Mean Corpuscular Hemoglobin Concent 30.1 L Red Cell Distribution Width 14.8 H Platelet Count 149 Mean Platelet Volume 11.9 H Neutrophils % 47.9 Lymphocytes % 39.7 Monocytes % 7.5 Eosinophils % 3.7 Basophils % 0.7 Nucleated Red Blood Cells % 0.0 Neutrophils # 1.9 Lymphocytes # 1.6 Monocytes # 0.3 Eosinophils # 0.2 Basophils # 0.0 Nucleated Red Blood Cells # 0.0 Sodium Level 144 Potassium Level 5.4 H Chloride Level 116 H Carbon Dioxide Level 24 Anion Gap 9 Blood Urea Nitrogen 19 Creatinine 0.69 Glucose Level 98 Calcium Level 9.0 Medications Current Medications Acetaminophen (Tylenol Liquid) 650 mg Q6H PRN GTB PAIN; Start 07/29/16 at 17:30 Brimonidine Tartrate (Alphagan P 0.15%) 1 drop Q8 BOTH EYES Last administered on 08/07/16 05:42; Admin Dose 1 DROP; Start 07/29/16 at 22:00 Docusate Sodium (Colace Liquid Cup) 100 mg DAILY GTB Last administered on 09:35; Admin Dose 100 MG; Start 07/30/16 at 09:00 Midodrine (Proamatine) 5 mg Q8 GTB Last administered on 08/07/16 05:41; Admin Dose 5 MG; Start 07/29/16 at 22:00 Senna (Senokot) 1 tab QHS GTB Last administered on 08/06/16 20:27; Admin Dose 1 TAB; Start 07/29/16 at 21:00 Latanoprost (Xalatan) 1 drop QHS BOTH EYES Last administered on 08/06/16 20:27 ; Admin Dose 1 DROP; Start 07/29/16 at 21:00 Valproate Sodium 500 mg 500 mg Q12 GTB Last administered on 08/07/16 09:36; Admin Dose 500 MG; Start 07/29/16 at 21:00 Potassium Chloride/Sodium Chloride (03/10 NS + KCl 20 Meq) 1,000 ml @ 50 mls/hr Q20H IV Last administered on 08/07/16 02:11; Admin Dose 50 MLS/HR; Start at 14:30 Enoxaparin Sodium (Lovenox) 30 mg DAILY SC Last administered on 08/07/16 09:40 ; Admin Dose 30 MG; Start 07/31/16 at 09:00 Lansoprazole (Prevacid) 30 mg DAILY@06 GTB Last administered on 08/07/16 05:41 ; Admin Dose 30 MG; Start 08/04/16 at 06:00 Assessment/Plan Chief Complaint/Hosp Course IMPRESSION: 1. Ventilator dependent respiratory failure. 2. Afib with slow VR/Sinus tyler 3. Anoxic encephalopathy. RECS: 1. Vent support. 2. BD's/CPT 3. Follow tele 4. TF/Free H20 family conference pending. ? bioethics meeting. Problems: KINGS MILLER MD[facility] Aug 07, 2016 12:20
--- NOTE | 2016-08-07 15:21 | PN ---
Date/Time of Note Date/Time of Note DATE: 08/07/16 TIME: 15:16 Assessment/Plan VTE Prophylaxis VTE Prophylaxis Intervention: LMWH Lines/Catheters [facility] Type (from [facility]): Peripheral IV Urinary Cath still in place: Yes Assessment/Plan Assessment/Plan - Hyperkalemia- Kayexalate 15 gm x 1, am BMP -Paroxysmal atrial fibrillation with slow ventricular response. Currently sinus bradycardia. Dr. Branch is asked to see patient in cardiology consultation. - Hypothyroidism. TSH is within normal limits, continue current dose of Synthroid. - Seizure disorder. Continue valproic acid. - seizure precautions - History of cerebrovascular accident. Continue aspirin. - Ventilator-dependent respiratory failure. Dr. Paredes is following in pulmonology consultation. - Dysphagia with G-tube. Continue G-tube feeding, monitor residual. - aspiration precautions - History of chronic obstructive pulmonary disease. Continue Lovenox for deep venous thrombosis prophylaxis and Protonix for peptic ulcer disease prophylaxis. Further recommendations based on clinical course. Plan of care discussed with Dr. Pierre. Subjective 24 Hr Interval Summary Constitutional: requiring O2 Exam/Review of Systems Vital Signs Vitals Vital Signs Date Time Temp Pulse Resp B/P Pulse Ox O2 Delivery O2 Flow Rate FiO2 08/07/16 13:00 41 18 97 35 08/07/16 12:00 98.2 107/55 08/06/16 00:00 Mechanical Ventilator Intake and Output 08/06/16 08/06/16 08/07/16 15:00 23:00 07:00 Intake Total 1800 ml 1600 ml Output Total 2200 ml 1100 ml Balance -400 ml 500 ml Exam Respiratory: diminished breath sounds, normal air movement Cardiovascular: nl pulses, regular rate and rhythm Gastrointestinal: non-tender, other, soft Extremities: edema (BUE) Neurological: lethargic, unresponsive Results Result Diagram: 08/07/16 0645 08/07/16 0645 Results 24 hrs Laboratory Tests Test 08/07/16 06:45 White Blood Count 4.0 L Red Blood Count 4.43 L Hemoglobin 13.4 L Hematocrit 44.5 Mean Corpuscular Volume 100.5 Mean Corpuscular Hemoglobin 30.2 Mean Corpuscular Hemoglobin Concent 30.1 L Red Cell Distribution Width 14.8 H Platelet Count 149 Mean Platelet Volume 11.9 H Neutrophils % 47.9 Lymphocytes % 39.7 Monocytes % 7.5 Eosinophils % 3.7 Basophils % 0.7 Nucleated Red Blood Cells % 0.0 Neutrophils # 1.9 Lymphocytes # 1.6 Monocytes # 0.3 Eosinophils # 0.2 Basophils # 0.0 Nucleated Red Blood Cells # 0.0 Sodium Level 144 Potassium Level 5.4 H Chloride Level 116 H Carbon Dioxide Level 24 Anion Gap 9 Blood Urea Nitrogen 19 Creatinine 0.69 Glucose Level 98 Calcium Level 9.0 Medications Medications Current Medications Acetaminophen (Tylenol Liquid) 650 mg Q6H PRN GTB PAIN; Start 07/29/16 at 17:30 Brimonidine Tartrate (Alphagan P 0.15%) 1 drop Q8 BOTH EYES Last administered on 08/07/16 14:05; Admin Dose 1 DROP; Start 07/29/16 at 22:00 Docusate Sodium (Colace Liquid Cup) 100 mg DAILY GTB Last administered on 09:35; Admin Dose 100 MG; Start 07/30/16 at 09:00 Midodrine (Proamatine) 5 mg Q8 GTB Last administered on 08/07/16 14:04; Admin Dose 5 MG; Start 07/29/16 at 22:00 Senna (Senokot) 1 tab QHS GTB Last administered on 08/06/16 20:27; Admin Dose 1 TAB; Start 07/29/16 at 21:00 Latanoprost (Xalatan) 1 drop QHS BOTH EYES Last administered on 08/06/16 20:27 ; Admin Dose 1 DROP; Start 07/29/16 at 21:00 Valproate Sodium 500 mg 500 mg Q12 GTB Last administered on 08/07/16 09:36; Admin Dose 500 MG; Start 07/29/16 at 21:00 Potassium Chloride/Sodium Chloride (1/2 NS + KCl 20 Meq) 1,000 ml @ 50 mls/hr Q20H IV Last administered on 08/07/16 02:11; Admin Dose 50 MLS/HR; Start at 14:30 Enoxaparin Sodium (Lovenox) 30 mg DAILY SC Last administered on 08/07/16 09:40 ; Admin Dose 30 MG; Start 07/31/16 at 09:00 Lansoprazole (Prevacid) 30 mg DAILY@06 GTB Last administered on 08/07/16 05:41 ; Admin Dose 30 MG; Start 08/04/16 at 06:00 AMNA CABRERA Aug 07, 2016 15:21
[2016-08-07] MEDS ORDERED: NA POLYST SULFON 15 GM/60 ML BTL GTB ONE (15:30)
--- NOTE | 2016-08-07 16:25 | RADRPT ---
PROCEDURE: US upper extremity Venous. CLINICAL INDICATION: Bilateral arm edema and pain TECHNIQUE: Multiple sonographic images of the bilateral upper extremity venous system was obtained utilizing grayscale, color-flow, compressive sonography and doppler imaging with augmentation. The images were reviewed on a PACS workstation. COMPARISON: None. FINDINGS: The study is limited due to the patient's positioning. There is normal compressibility and flow within the bilateral internal jugular vein, subclavian vein , axillary vein, visualized portions of the brachial and cephalic veins. The right basilic vein was not seen. The left basilic vein is partially visualized. RPTAT: AA IMPRESSION: Limited study due to patient positioning. No gross sonographic evidence for venous thrombosis. .William Olea MD, MD Date Time Electronically viewed and signed by .William Olea MD, MD on 08/07/2016 16:25 .S/
--- NOTE | 2016-08-07 17:55 | CONS ---
Date/Time of Note Date/Time of Note DATE: 08/07/16 TIME: 17:52 Assessment/Plan Assessment/Plan Chief Complaint/Hosp Course IMPRESSION: 1. Bradycardia with EKG and telemetry, most consistent with sinus bradycardia at this time.-to low of 35 Currently 40's-60's. NL Free T4 2. Questionable paroxysmal atrial fibrillation and from EKG reportedly done at chronic care facility. 3. Abnormal electrocardiogram with nonspecific ST-T abnormalities, assess for acute coronary syndrome.-negative trop x 3/Echo this admit NL EF55-60/DD/MR/TR 4. Hypotension, chronic on Midodrine. 5. Respiratory failure, chronic, status post tracheostomy. 6. Dysphagia status post G-tube. 7. History anoxic encephalopathy. 8. History of hypothyroidism with currently normal TSH. 9. Anemia, mild. Recc: -Tele -follow rate/rhythm closely - Sched for PPM tomorrow -Continue midodrine BP support -Contnue synthroid Problems: Consultation Date/Type/Reason Admit Date/Time July 30, 2016 at 15:03 Initial Consult Date 07/30/2016 Type of Consultation: Cardiology Reason for Consultation bradycardia Referring Provider: HALLE FLOYD MD Exam/Review of Systems Vital Signs Vitals Vital Signs Date Time Temp Pulse Resp B/P Pulse Ox O2 Delivery O2 Flow Rate FiO2 08/07/16 17:09 40 18 97 35 08/07/16 15:55 97.9 120/60 08/06/16 00:00 Mechanical Ventilator Intake and Output 08/06/16 08/06/16 08/07/16 15:00 23:00 07:00 Intake Total 1800 ml 1600 ml Output Total 2200 ml 1100 ml Balance -400 ml 500 ml Exam Review of Systems: CONSTITUTIONAL: No fevers, chills. PULMONARY: trached CARDIOVASCULAR: No chest pain/palpitations GASTROINTESTINAL: G-tube GENITOURINARY: No hematuria/dysuria. MUSCULOSKELETAL: No myagias/arthalgias. PSYCHIATRIC: The patient denies depression. NEUROLOGIC: Encephalopathy Constitutional: other (encephalopthic) Psych: no complaints Head: normocephalic Neck: jvd (8 cm water), supple Respiratory: diminished breath sounds Cardiovascular: regular rate and rhythm Gastrointestinal: non-tender, soft Musculoskeletal: muscle tone (normal) Extremities: edema (none) Neurological: lethargic Results Result Diagram: 08/07/16 0645 08/07/16 0645 Results 24 hrs Laboratory Tests Test 08/07/16 06:45 White Blood Count 4.0 L Red Blood Count 4.43 L Hemoglobin 13.4 L Hematocrit 44.5 Mean Corpuscular Volume 100.5 Mean Corpuscular Hemoglobin 30.2 Mean Corpuscular Hemoglobin Concent 30.1 L Red Cell Distribution Width 14.8 H Platelet Count 149 Mean Platelet Volume 11.9 H Neutrophils % 47.9 Lymphocytes % 39.7 Monocytes % 7.5 Eosinophils % 3.7 Basophils % 0.7 Nucleated Red Blood Cells % 0.0 Neutrophils # 1.9 Lymphocytes # 1.6 Monocytes # 0.3 Eosinophils # 0.2 Basophils # 0.0 Nucleated Red Blood Cells # 0.0 Sodium Level 144 Potassium Level 5.4 H Chloride Level 116 H Carbon Dioxide Level 24 Anion Gap 9 Blood Urea Nitrogen 19 Creatinine 0.69 Glucose Level 98 Calcium Level 9.0 Medications Medications Current Medications Acetaminophen (Tylenol Liquid) 650 mg Q6H PRN GTB PAIN; Start 07/29/16 at 17:30 Brimonidine Tartrate (Alphagan P 0.15%) 1 drop Q8 BOTH EYES Last administered on 08/07/16 14:05; Admin Dose 1 DROP; Start 07/29/16 at 22:00 Docusate Sodium (Colace Liquid Cup) 100 mg DAILY GTB Last administered on 09:35; Admin Dose 100 MG; Start 07/30/16 at 09:00 Midodrine (Proamatine) 5 mg Q8 GTB Last administered on 08/07/16 14:04; Admin Dose 5 MG; Start 07/29/16 at 22:00 Senna (Senokot) 1 tab QHS GTB Last administered on 08/06/16 20:27; Admin Dose 1 TAB; Start 07/29/16 at 21:00 Latanoprost (Xalatan) 1 drop QHS BOTH EYES Last administered on 08/06/16 20:27 ; Admin Dose 1 DROP; Start 07/29/16 at 21:00 Valproate Sodium 500 mg 500 mg Q12 GTB Last administered on 08/07/16 09:36; Admin Dose 500 MG; Start 07/29/16 at 21:00 Potassium Chloride/Sodium Chloride (03/10 NS + KCl 20 Meq) 1,000 ml @ 50 mls/hr Q20H IV Last administered on 08/07/16 02:11; Admin Dose 50 MLS/HR; Start at 14:30 Enoxaparin Sodium (Lovenox) 30 mg DAILY SC Last administered on 08/07/16 09:40 ; Admin Dose 30 MG; Start 07/31/16 at 09:00 Lansoprazole (Prevacid) 30 mg DAILY@06 GTB Last administered on 08/07/16 05:41 ; Admin Dose 30 MG; Start 08/04/16 at 06:00 YUSUF VASQUEZ Aug 07, 2016 17:55
[2016-08-07] MEDS ORDERED: CEFAZOLIN 1 GM/50 ML (PMX) 50 ML IVPB ONE (18:00)
[2016-08-07] MEDS: SENNA TAB GTB SCH (20:38)
[2016-08-07] MEDS: LATANOPROST 0.005% 2.5 ML OPH BOTH EYES SCH (21:00)
[2016-08-07] MEDS ORDERED: ALBUTEROL/IPRATROPIUM (NEB) 3 ML AMP HHN SCH (22:30)
[2016-08-07] MEDS: IPRATROPIUM (HFA) 12.9 GM INHALER INH SCH (23:03)
[2016-08-07] MEDS: ALBUTEROL 18 GM INHALER INH SCH (23:03)
[2016-08-08] VITALS (25 sets, daily range): BP systolic 108–155; BP diastolic 58–82; PULSE 47–85; RESP 18–23
[2016-08-08] MEDS: IPRATROPIUM (HFA) 12.9 GM INHALER INH SCH ×2 (01:34→19:43)
[2016-08-08] MEDS: ALBUTEROL 18 GM INHALER INH SCH ×2 (01:34→19:46)
[2016-08-08] MEDS: LANSOPRAZOLE 30 MG CAP GTB SCH (05:33)
[2016-08-08] MEDS: BRIMONIDINE 0.15% 5 ML OPH BOTH EYES SCH ×3 (05:34→21:49)
[2016-08-08 07:11] LABS: ADD SCAN DIFF NO
[2016-08-08 07:18] LABS: BASOPHILS % 0.3 % (0.0-2.0); EOSINOPHILS # 0.1 10^3/ul (0.0-0.5); EOSINOPHILS % 0.8 % (0.0-7.0); HEMATOCRIT 43.5 % (42.0-52.0); HEMOGLOBIN 13.6 g/dl (14.0-18.0); LYMPHOCYTES # 1.7 10^3/ul (0.8-2.9); LYMPHOCYTES % 22.3 % (15.0-51.0); MEAN CORPUSCULAR HEMOGLOBIN 31.1 pg (29.0-33.0); MEAN CORPUSCULAR HGB CONC 31.3 g/dl (32.0-37.0); MEAN CORPUSCULAR VOLUME 99.5 fl (82.0-101.0); MEAN PLATELET VOLUME 11.8 fl (7.4-10.4); MONOCYTE # 0.6 10^3/ul (0.3-0.9); MONOCYTES % 7.2 % (0.0-11.0); NEUTROPHIL # 5.4 10^3/ul (1.6-7.5); PLATELET COUNT 163 10^3/UL (140-415); RED BLOOD COUNT 4.37 10^6/ul (4.70-6.10); RED CELL DISTRIBUTION WIDTH 14.6 % (11.5-14.5); WHITE BLOOD COUNT 7.8 10^3/ul (4.8-10.8)
[2016-08-08 07:36] LABS: PROTIME 13.2 Sec (12.2-14.2)
[2016-08-08 07:48] LABS: CALCIUM 8.9 mg/dl (8.4-10.2); CREATININE 0.76 mg/dl (0.61-1.24); POTASSIUM 4.7 mmol/L (3.5-5.1)
[2016-08-08] MEDS: LEVOTHYROXINE 175 MCG TAB GTB SCH (08:07)
[2016-08-08] MEDS: MIDODRINE 5 MG TAB GTB SCH ×3 (08:07→21:50)
[2016-08-08] MEDS: DOCUSATE SODIUM 10 MG/ML (10ML CUP) GTB SCH (08:08)
[2016-08-08] MEDS: VALPROIC ACID LIQUID CUP 250 MG/5 ML CUP GTB SCH ×2 (08:08→21:49)
[2016-08-08] MEDS: ENOXAPARIN 30 MG/0.3 ML SYG SC SCH (08:08)
--- NOTE | 2016-08-08 11:11 | CONS ---
Date/Time of Note Date/Time of Note DATE: 08/08/16 TIME: 11:05 Assessment/Plan Assessment/Plan Chief Complaint/Hosp Course IMPRESSION: 1. Bradycardia with EKG and telemetry, most consistent with sinus bradycardia at this time.-to low 30'sovernight Currently 40's-50's. NL Free T4 2. Questionable paroxysmal atrial fibrillation and from EKG reportedly done at chronic care facility. 3. Abnormal electrocardiogram with nonspecific ST-T abnormalities, assess for acute coronary syndrome.-negative trop x 3/Echo this admit NL EF55-60/DD/MR/TR 4. Hypotension, chronic on Midodrine. 5. Respiratory failure, chronic, status post tracheostomy. 6. Dysphagia status post G-tube. 7. History anoxic encephalopathy. 8. History of hypothyroidism with currently normal TSH. 9. Anemia, mild. Recc: -Tele -follow rate/rhythm closely - Sched for PPM today -Continue midodrine BP support -Contnue synthroid Problems: Consultation Date/Type/Reason Admit Date/Time July 30, 2016 at 15:03 Initial Consult Date 07/30/2016 Type of Consultation: Cardiology Reason for Consultation Bradycardia Referring Provider: HALLE FLOYD MD Exam/Review of Systems Vital Signs Vitals Vital Signs Date Time Temp Pulse Resp B/P Pulse Ox O2 Delivery O2 Flow Rate FiO2 08/08/16 09:10 42 18 98 35 08/08/16 07:37 98.4 133/59 08/06/16 00:00 Mechanical Ventilator Intake and Output 08/07/16 08/07/16 08/08/16 15:00 23:00 07:00 Intake Total 2200 ml 400 ml Output Total 2000 ml 1000 ml Balance 200 ml -600 ml Exam Review of Systems: CONSTITUTIONAL: No fevers, chills. PULMONARY: trached CARDIOVASCULAR: No obvioua chest pain/palpitations GASTROINTESTINAL: No nausea/vomiting. GENITOURINARY: No hematuria/dysuria. MUSCULOSKELETAL: No obvious myagias/arthalgias. PSYCHIATRIC: No documented depression. NEUROLOGIC: Encephalopathic Constitutional: other (encephalopathic) Psych: no complaints Head: normocephalic ENMT: mucosa pink and moist Neck: jvd (9 cm water), supple Respiratory: diminished breath sounds (at bases/B) Cardiovascular: regular rate and rhythm Gastrointestinal: non-tender, soft Musculoskeletal: muscle tone (normal) Extremities: edema (None) Neurological: other (No focal deficits) Results Result Diagram: 08/08/16 0622 08/08/16 0622 Results 24 hrs Laboratory Tests Test 08/08/16 05:22 08/08/16 06:22 Prothrombin Time 13.2 Prothrombin Time Ratio 1.0 INR International Normalized Ratio 1.00 White Blood Count 7.8 # Red Blood Count 4.37 L Hemoglobin 13.6 L Hematocrit 43.5 Mean Corpuscular Volume 99.5 Mean Corpuscular Hemoglobin 31.1 Mean Corpuscular Hemoglobin Concent 31.3 L Red Cell Distribution Width 14.6 H Platelet Count 163 Mean Platelet Volume 11.8 H Neutrophils % 69.0 Lymphocytes % 22.3 Monocytes % 7.2 Eosinophils % 0.8 Basophils % 0.3 Nucleated Red Blood Cells % 0.0 Neutrophils # 5.4 Lymphocytes # 1.7 Monocytes # 0.6 Eosinophils # 0.1 Basophils # 0.0 Nucleated Red Blood Cells # 0.0 Sodium Level 144 Potassium Level 4.7 Chloride Level 111 H Carbon Dioxide Level 23 Anion Gap 15 Blood Urea Nitrogen 18 Creatinine 0.76 Glucose Level 94 Calcium Level 8.9 Medications Medications Current Medications Acetaminophen (Tylenol Liquid) 650 mg Q6H PRN GTB PAIN; Start 07/29/16 at 17:30 Brimonidine Tartrate (Alphagan P 0.15%) 1 drop Q8 BOTH EYES Last administered on 08/08/16 05:34; Admin Dose 1 DROP; Start 07/29/16 at 22:00 Docusate Sodium (Colace Liquid Cup) 100 mg DAILY GTB Last administered on 09:35; Admin Dose 100 MG; Start 07/30/16 at 09:00 Midodrine (Proamatine) 5 mg Q8 GTB Last administered on 08/07/16 14:04; Admin Dose 5 MG; Start 07/29/16 at 22:00 Senna (Senokot) 1 tab QHS GTB Last administered on 08/07/16 20:38; Admin Dose 1 TAB; Start 07/29/16 at 21:00 Latanoprost (Xalatan) 1 drop QHS BOTH EYES Last administered on 08/07/16 21:00 ; Admin Dose 1 DROP; Start 07/29/16 at 21:00 Valproate Sodium 500 mg 500 mg Q12 GTB Last administered on 08/07/16 20:41; Admin Dose 500 MG; Start 07/29/16 at 21:00 Potassium Chloride/Sodium Chloride (03/10 NS + KCl 20 Meq) 1,000 ml @ 50 mls/hr Q20H IV Last administered on 08/07/16 22:29; Admin Dose 50 MLS/HR; Start at 14:30 Enoxaparin Sodium (Lovenox) 30 mg DAILY SC Last administered on 08/07/16 09:40 ; Admin Dose 30 MG; Start 07/31/16 at 09:00 Lansoprazole (Prevacid) 30 mg DAILY@06 GTB Last administered on 08/08/16 05:33 ; Admin Dose 30 MG; Start 08/04/16 at 06:00 YUSUF VASQUEZ Aug 08, 2016 11:11
[2016-08-08] MEDS ORDERED: POLYMYXIN/BACITRACIN 1L IRRIG IRR ONE (13:00)
--- NOTE | 2016-08-08 13:49 | CONS ---
Date/Time of Note Date/Time of Note DATE: 08/08/16 TIME: 13:48 Consult Date/Type/Reason Admit Date/Time July 30, 2016 at 15:03 Type of Consultation: PULM Ordering Provider: HALLE FLOYD MD Subjective comfortable, no new events. Objective Vital Signs Date Time Temp Pulse Resp B/P Pulse Ox O2 Delivery O2 Flow Rate FiO2 08/08/16 13:07 40 18 97 35 08/08/16 11:20 98.6 117/60 08/06/16 00:00 Mechanical Ventilator Intake and Output 08/07/16 08/07/16 08/08/16 15:00 23:00 07:00 Intake Total 2200 ml 400 ml Output Total 2000 ml 1000 ml Balance 200 ml -600 ml Exam PHYSICAL EXAMINATION GENERAL: Elderly gentleman, on mechanical ventilation via tracheostomy VITAL SIGNS: see below. HEENT: Pupils equal, round, and reactive to light. Tracheostomy site clean and intact. CARDIAC: S1, S2, 1/6 systolic ejection murmur CHEST: Diminished air entry bilaterally. ABDOMEN: Mildly distended. Bowel sounds present no guarding or rebound EXTREMITIES: No cyanosis, clubbing edema +1 NEUROLOGIC: Generalized weakness Results/Medications Result Diagram: 08/08/16 0622 08/08/16 0622 Results 24 hrs Laboratory Tests Test 08/08/16 05:22 08/08/16 06:22 Prothrombin Time 13.2 Prothrombin Time Ratio 1.0 INR International Normalized Ratio 1.00 White Blood Count 7.8 # Red Blood Count 4.37 L Hemoglobin 13.6 L Hematocrit 43.5 Mean Corpuscular Volume 99.5 Mean Corpuscular Hemoglobin 31.1 Mean Corpuscular Hemoglobin Concent 31.3 L Red Cell Distribution Width 14.6 H Platelet Count 163 Mean Platelet Volume 11.8 H Neutrophils % 69.0 Lymphocytes % 22.3 Monocytes % 7.2 Eosinophils % 0.8 Basophils % 0.3 Nucleated Red Blood Cells % 0.0 Neutrophils # 5.4 Lymphocytes # 1.7 Monocytes # 0.6 Eosinophils # 0.1 Basophils # 0.0 Nucleated Red Blood Cells # 0.0 Sodium Level 144 Potassium Level 4.7 Chloride Level 111 H Carbon Dioxide Level 23 Anion Gap 15 Blood Urea Nitrogen 18 Creatinine 0.76 Glucose Level 94 Calcium Level 8.9 Medications Current Medications Acetaminophen (Tylenol Liquid) 650 mg Q6H PRN GTB PAIN; Start 07/29/16 at 17:30 Brimonidine Tartrate (Alphagan P 0.15%) 1 drop Q8 BOTH EYES Last administered on 08/08/16 05:34; Admin Dose 1 DROP; Start 07/29/16 at 22:00 Docusate Sodium (Colace Liquid Cup) 100 mg DAILY GTB Last administered on 09:35; Admin Dose 100 MG; Start 07/30/16 at 09:00 Midodrine (Proamatine) 5 mg Q8 GTB Last administered on 08/07/16 14:04; Admin Dose 5 MG; Start 07/29/16 at 22:00 Senna (Senokot) 1 tab QHS GTB Last administered on 08/07/16 20:38; Admin Dose 1 TAB; Start 07/29/16 at 21:00 Latanoprost (Xalatan) 1 drop QHS BOTH EYES Last administered on 08/07/16 21:00 ; Admin Dose 1 DROP; Start 07/29/16 at 21:00 Valproate Sodium 500 mg 500 mg Q12 GTB Last administered on 08/07/16 20:41; Admin Dose 500 MG; Start 07/29/16 at 21:00 Potassium Chloride/Sodium Chloride (1/ NS + KCl 20 Meq) 1,000 ml @ 50 mls/hr Q20H IV Last administered on 08/07/16 22:29; Admin Dose 50 MLS/HR; Start at 14:30 Enoxaparin Sodium (Lovenox) 30 mg DAILY SC Last administered on 08/07/16 09:40 ; Admin Dose 30 MG; Start 07/31/16 at 09:00 Lansoprazole (Prevacid) 30 mg DAILY@06 GTB Last administered on 08/08/16 05:33 ; Admin Dose 30 MG; Start 08/04/16 at 06:00 Assessment/Plan Chief Complaint/Hosp Course IMPRESSION: 1. Ventilator dependent respiratory failure. 2. Afib with slow VR/Sinus tyler 3. Anoxic encephalopathy. RECS: 1. Vent support. 2. BD's/CPT 3. Follow tele 4. TF/Free H20 5. Pacemaker today. If needed poor prognosis. Problems: KINGS MILELR MD, [facility] Aug 08, 2016 13:49
[2016-08-08] MEDS ORDERED: CEFAZOLIN 2 GM/50 ML (PMX) 50 ML IVPB ONE (13:50)
[2016-08-08] MEDS ORDERED: LIDOCAINE 1% (MDV) 20 ML INJ ONE (13:57)
[2016-08-08] MEDS ORDERED: BUPIVACAINE 0.5% (SDV) 30 ML INJ ONE (13:57)
--- NOTE | 2016-08-08 14:15 | PN ---
Date/Time of Note Date/Time of Note DATE: 08/08/16 TIME: 14:09 Assessment/Plan VTE Prophylaxis VTE Prophylaxis Intervention: SCD's Lines/Catheters IV C[facility] Type (from [facility]): Peripheral IV Urinary Cath still in place: Yes Reason Cath still needed: urinary retention Assessment/Plan Chief Complaint/Hosp Course Persistent bradycardia with heart rate in the 40s, afebrile. ASSESSMENT AND PLAN: - Hyperkalemia, resolved. - Paroxysmal atrial fibrillation with slow ventricular response. Currently sinus bradycardia. Dr. Branch is following in cardiology consultation. Plan for permanent pacemaker today. - Hypothyroidism. TSH is within normal limits, continue current dose of Synthroid. - Seizure disorder. Continue valproic acid. - History of cerebrovascular accident. Continue aspirin. - Ventilator-dependent respiratory failure. Dr. Paredes is following in pulmonology consultation. - Dysphagia with G-tube. Continue G-tube feeding, monitor residual. - History of chronic obstructive pulmonary disease. Continue Lovenox for deep venous thrombosis prophylaxis and Protonix for peptic ulcer disease prophylaxis. Further recommendations based on clinical course. Plan of care discussed with Dr. Pierre. Problems: Exam/Review of Systems Vital Signs Vitals Vital Signs Date Time Temp Pulse Resp B/P Pulse Ox O2 Delivery O2 Flow Rate FiO2 08/08/16 13:07 40 18 97 35 08/08/16 11:20 98.6 117/60 08/06/16 00:00 Mechanical Ventilator Intake and Output 08/07/16 08/07/16 08/08/16 15:00 23:00 07:00 Intake Total 2200 ml 400 ml Output Total 2000 ml 1000 ml Balance 200 ml -600 ml Exam Constitutional: frail Head: normocephalic Neck: supple Respiratory: normal air movement, other Cardiovascular: nl pulses Gastrointestinal: non-tender (Tracheostomy), other (G-tube), soft Extremities: normal pulses Results Result Diagram: 08/08/16 0622 08/08/16 0622 Results 24 hrs Laboratory Tests Test 08/08/16 05:22 08/08/16 06:22 Prothrombin Time 13.2 Prothrombin Time Ratio 1.0 INR International Normalized Ratio 1.00 White Blood Count 7.8 # Red Blood Count 4.37 L Hemoglobin 13.6 L Hematocrit 43.5 Mean Corpuscular Volume 99.5 Mean Corpuscular Hemoglobin 31.1 Mean Corpuscular Hemoglobin Concent 31.3 L Red Cell Distribution Width 14.6 H Platelet Count 163 Mean Platelet Volume 11.8 H Neutrophils % 69.0 Lymphocytes % 22.3 Monocytes % 7.2 Eosinophils % 0.8 Basophils % 0.3 Nucleated Red Blood Cells % 0.0 Neutrophils # 5.4 Lymphocytes # 1.7 Monocytes # 0.6 Eosinophils # 0.1 Basophils # 0.0 Nucleated Red Blood Cells # 0.0 Sodium Level 144 Potassium Level 4.7 Chloride Level 111 H Carbon Dioxide Level 23 Anion Gap 15 Blood Urea Nitrogen 18 Creatinine 0.76 Glucose Level 94 Calcium Level 8.9 Medications Medications Current Medications Acetaminophen (Tylenol Liquid) 650 mg Q6H PRN GTB PAIN; Start 07/29/16 at 17:30 Brimonidine Tartrate (Alphagan P 0.15%) 1 drop Q8 BOTH EYES Last administered on 08/08/16 05:34; Admin Dose 1 DROP; Start 07/29/16 at 22:00 Docusate Sodium (Colace Liquid Cup) 100 mg DAILY GTB Last administered on 09:35; Admin Dose 100 MG; Start 07/30/16 at 09:00 Midodrine (Proamatine) 5 mg Q8 GTB Last administered on 08/07/16 14:04; Admin Dose 5 MG; Start 07/29/16 at 22:00 Senna (Senokot) 1 tab QHS GTB Last administered on 08/07/16 20:38; Admin Dose 1 TAB; Start 07/29/16 at 21:00 Latanoprost (Xalatan) 1 drop QHS BOTH EYES Last administered on 08/07/16 21:00 ; Admin Dose 1 DROP; Start 07/29/16 at 21:00 Valproate Sodium 500 mg 500 mg Q12 GTB Last administered on 08/07/16 20:41; Admin Dose 500 MG; Start 07/29/16 at 21:00 Potassium Chloride/Sodium Chloride (1/2 NS + KCl 20 Meq) 1,000 ml @ 50 mls/hr Q20H IV Last administered on 08/07/16 22:29; Admin Dose 50 MLS/HR; Start at 14:30 Enoxaparin Sodium (Lovenox) 30 mg DAILY SC Last administered on 08/07/16 09:40 ; Admin Dose 30 MG; Start 07/31/16 at 09:00 Lansoprazole (Prevacid) 30 mg DAILY@06 GTB Last administered on 08/08/16 05:33 ; Admin Dose 30 MG; Start 08/04/16 at 06:00 BRAYAN HUDSON Aug 08, 2016 14:15
[2016-08-08] MEDS ORDERED: FENTAnyl 50 MCG/ML VIAL ONE (14:50)
[2016-08-08] MEDS ORDERED: MIDAZOLAM 1 MG/ML 2 ML INJ ONE (14:50)
[2016-08-08] MEDS ORDERED: SOD CHLORIDE 0.9% 1,000 ML IV SCH ×2 (15:29)
[2016-08-08] MEDS ORDERED: SOD CHLORIDE 0.45% 1,000 ML IV SCH ×2 (15:29)
[2016-08-08] MEDS ORDERED: AL HYDROX/MG HYDROX/SIMETH 30 ML CUP PO PRN (15:30)
[2016-08-08] MEDS ORDERED: ACETAMINOPHEN 325 MG TAB PO PRN (15:30)
[2016-08-08] MEDS ORDERED: ONDANSETRON 4 MG INJ IV PRN (15:30)
[2016-08-08] MEDS ORDERED: morphine 2 MG INJ IV PRN (15:30)
--- NOTE | 2016-08-08 16:36 | RADRPT ---
PROCEDURE: XR Chest. CLINICAL INDICATION: Status post pacemaker placement. TECHNIQUE: AP Portable chest. COMPARISON: Chest x-ray 07/29/2016. FINDINGS: There has been interval placement of a single chamber pacemaker with a left chest wall battery pack. The tracheostomy tube remains in good position. Marked cardiomegaly is again seen. There is wors ening central pulmonary vascular congestion with patchy bibasilar infiltrates, increased since the p rior study. Small pleural effusions are suspected. Atherosclerotic calcifications of the thoracic aorta are identified. No pneumothorax is seen. Calcified granulomas are again seen in the left upp er lobe. Degenerative changes of the thoracic spine are evident. IMPRESSION: 1. Status post single chamber left-sided pacemaker placement with no evidence of pneumothorax. 2. Central pulmonary vascular congestion with patchy bibasilar infiltrates, which may reflect lewis es related to congestive heart failure. There appear to be on the small bilateral pleural effusions . RPTAT: HJAH .Cayla Garza MD, MD Date Time Electronically viewed and signed by .Cayla Garza MD, on 08/08/2016 16:36 .H/
[2016-08-08] MEDS ORDERED: ACCU-CHEK XX SCH (17:25)
[2016-08-08] MEDS: 1/2 NS + KCL 20 MEQ 1,000 ML IV SCH ×2 (17:38→21:50)
[2016-08-08] MEDS: LATANOPROST 0.005% 2.5 ML OPH BOTH EYES SCH (21:49)
[2016-08-08] MEDS: SENNA TAB GTB SCH (21:49)
--- NOTE | 2016-08-08 23:53 | RADRPT ---
Vent Rate: 70 bpm RR Interval: 0 msec MD Interval: 176 msec QRS Duration: 142 msec QT Interval: 442 msec QTC Interval: 477 msec P-R-T [place]: 51 - 3 - 19 degrees Normal sinus rhythm Right bundle branch block Abnormal ECG Electronically Signed By: Tony Chaparro [id number]
--- NOTE | 2016-08-08 23:57 | RADRPT ---
Vent Rate: 47 bpm RR Interval: 0 msec OK Interval: 160 msec QRS Duration: 132 msec QT Interval: 508 msec QTC Interval: 449 msec P-R-T [place]: 41 - -7 - 2 degrees Marked sinus bradycardia Right bundle branch block Abnormal ECG Electronically Signed By: Tony Chaparro [id number]
[2016-08-09] VITALS (23 sets, daily range): BP systolic 122–152; BP diastolic 56–70; PULSE 66–71; RESP 18–20
[2016-08-09] MEDS: IPRATROPIUM (HFA) 12.9 GM INHALER INH SCH ×4 (01:01→20:40)
[2016-08-09] MEDS: ALBUTEROL 18 GM INHALER INH SCH ×4 (01:01→20:47)
[2016-08-09] MEDS: BRIMONIDINE 0.15% 5 ML OPH BOTH EYES SCH ×3 (05:43→21:11)
[2016-08-09] MEDS: LEVOTHYROXINE 175 MCG TAB GTB SCH (05:44)
[2016-08-09] MEDS: LANSOPRAZOLE 30 MG CAP GTB SCH (05:44)
[2016-08-09] MEDS: MIDODRINE 5 MG TAB GTB SCH ×3 (05:45→21:12)
[2016-08-09] MEDS: DOCUSATE SODIUM 10 MG/ML (10ML CUP) GTB SCH (07:52)
[2016-08-09] MEDS: VALPROIC ACID LIQUID CUP 250 MG/5 ML CUP GTB SCH ×2 (07:52→21:10)
--- NOTE | 2016-08-09 10:04 | CONS ---
Date/Time of Note Date/Time of Note DATE: 08/09/16 TIME: 10:03 Assessment/Plan Assessment/Plan Additional Assessment/Plan 1. Bradycardia with EKG and telemetry, most consistent with sinus bradycardia at this time.-to low 30'sovernight Currently 40's-50's. NL Free T4- now s/p pacer, intermittently paced, site looks well. Will check today. 2. Questionable paroxysmal atrial fibrillation and from EKG reportedly done at chronic care facility- now in sinus - will monitor 3. Abnormal electrocardiogram with nonspecific ST-T abnormalities, assess for acute coronary syndrome.-negative trop x 3/Echo this admit NL EF55-60/DD/MR/TR 4. Hypotension, chronic on Midodrine - BP better now. 5. Respiratory failure, chronic, status post tracheostomy. 6. Dysphagia status post G-tube. 7. History anoxic encephalopathy. 8. History of hypothyroidism with currently normal TSH. 9. Anemia, mild. Consultation Date/Type/Reason Admit Date/Time July 30, 2016 at 15:03 Type of Consultation: PULM Referring Provider: HALLE FLOYD MD 24 HR Interval Summary Free Text/Dictation s/p pacer, intermittently paced, site looks well. Will check today. ROS: No fever, no chills, no nausea, no vomiting, no diarrhea/constipation No recent weight changes No chest pain, no PND, no orthopnea No dizziness, blurred vision No thirst, no heat or cold intolerance (per nurse) Exam/Review of Systems Vital Signs Vitals Vital Signs Date Time Temp Pulse Resp B/P Pulse Ox O2 Delivery O2 Flow Rate FiO2 08/09/16 08:50 66 08/09/16 08:24 99.0 18 149/60 98 08/09/16 07:15 35 08/06/16 00:00 Mechanical Ventilator Intake and Output 08/08/16 08/08/16 08/09/16 15:00 23:00 07:00 Intake Total 125 ml 1100 ml Output Total 1000 ml Balance 125 ml 100 ml Exam General: WN/WD/NAD, AOx 0 HEENT: Unicetric/atraumatic/EOMI (does not follow commands) NECK: trach Lymph: no lymphadenopathy HEART: regular with no S3, II/ systolic murmur at apex, pacer right side LUNGS: Coarse sounds ABD: soft, NT, ND, +BS : Intact Neuro: non focal SKIN: chronic changes EXT: trace edema Results Result Diagram: 08/08/1622 08/08/16621 Medications Medications Current Medications Acetaminophen (Tylenol Liquid) 650 mg Q6H PRN GTB PAIN; Start 07/29/16 at 17:30 Brimonidine Tartrate (Alphagan P 0.15%) 1 drop Q8 BOTH EYES Last administered on 08/09/16 05:43; Admin Dose 1 DROP; Start 07/29/16 at 22:00 Docusate Sodium (Colace Liquid Cup) 100 mg DAILY GTB Last administered on 07:52; Admin Dose 100 MG; Start 07/30/16 at 09:00 Midodrine (Proamatine) 5 mg Q8 GTB Last administered on 08/07/16 14:04; Admin Dose 5 MG; Start 07/29/16 at 22:00 Senna (Senokot) 1 tab QHS GTB Last administered on 08/08/16 21:49; Admin Dose 1 TAB; Start 07/29/16 at 21:00 Latanoprost (Xalatan) 1 drop QHS BOTH EYES Last administered on 08/08/16 21:49 ; Admin Dose 1 DROP; Start 07/29/16 at 21:00 Valproate Sodium 500 mg 500 mg Q12 GTB Last administered on 08/09/16 07:52; Admin Dose 500 MG; Start 07/29/16 at 21:00 Potassium Chloride/Sodium Chloride (1/2 NS + KCl 20 Meq) 1,000 ml @ 50 mls/hr Q20H IV Last administered on 08/08/16 21:50; Admin Dose 50 MLS/HR; Start at 14:30 Enoxaparin Sodium (Lovenox) 30 mg DAILY SC Last administered on 08/07/16 09:40 ; Admin Dose 30 MG; Start 07/31/16 at 09:00; Status Future Hold Lansoprazole (Prevacid) 30 mg DAILY@06 GTB Last administered on 08/09/16 05:44 ; Admin Dose 30 MG; Start 08/04/16 at 06:00 SOY LECHUGA MD Aug 09, 2016 10:04
--- NOTE | 2016-08-09 12:06 | CONS ---
Date/Time of Note Date/Time of Note DATE: 08/09/16 TIME: 12:03 Assessment/Plan Assessment/Plan Additional Assessment/Plan Assessment recommendations; 1. Patient admitted for cardiac arrhythmia requiring pacemaker placement. 2. History of advanced anoxic brain injury. 3. Chronic respiratory failure, patient on ventilator. Continue current treatment. Patient can be transferred to intermediate facility. Prognosis is poor. Consultation Date/Type/Reason Admit Date/Time July 30, 2016 at 15:03 Initial Consult Date Type of Consultation: PULM Referring Provider: HALLE FLOYD MD 24 HR Interval Summary Free Text/Dictation Patient condition is stable. Remains unresponsive to any commands. Has remained hemodynamically stable. Patient underwent pacemaker placement yesterday for atrial fibrillation. General exam; elderly male, on ventilator via tracheostomy currently in no distress. Exam/Review of Systems Vital Signs Vitals Vital Signs Date Time Temp Pulse Resp B/P Pulse Ox O2 Delivery O2 Flow Rate FiO2 08/09/16 11:40 98.8 75 18 152/65 98 08/09/16 09:50 35 08/06/16 00:00 Mechanical Ventilator Intake and Output 08/08/16 08/08/16 08/09/16 15:00 23:00 07:00 Intake Total 125 ml 1100 ml Output Total 1000 ml Balance 125 ml 100 ml Exam HEENT exam is; supple neck, no JVD. No lymphadenopathy. Midline trachea. No thyromegaly. Tracheostomy placed with clean insertion site. Pupils are small bilaterally. Patient has fair dentition. Chest examination; to auscultation. S1-S2 audible, irregular rhythm. Pacemaker left chest wall. Abdomen examination; soft, nondistended. No organomegaly. G-tube in place. Bowel sounds audible. Extremity examination; no peripheral edema. COMPUTER OPERATIONS TECHNICIAN examination; patient is awake but does not follow any commands. Has contractures involving all 4 extremities. Results Result Diagram: 08/08/1662108/08/16621 Medications Medications Current Medications Acetaminophen (Tylenol Liquid) 650 mg Q6H PRN GTB PAIN; Start 07/29/16 at 17:30 Brimonidine Tartrate (Alphagan P 0.15%) 1 drop Q8 BOTH EYES Last administered on 08/09/16t 05:43; Admin Dose 1 DROP; Start 07/29/16 at 22:00 Docusate Sodium (Colace Liquid Cup) 100 mg DAILY GTB Last administered on 07:52; Admin Dose 100 MG; Start 07/30/16 at 09:00 Midodrine (Proamatine) 5 mg Q8 GTB Last administered on 08/07/16 14:04; Admin Dose 5 MG; Start 07/29/16 at 22:00 Senna (Senokot) 1 tab QHS GTB Last administered on 08/08/16 21:49; Admin Dose 1 TAB; Start 07/29/16 at 21:00 Latanoprost (Xalatan) 1 drop QHS BOTH EYES Last administered on 08/08/16 21:49 ; Admin Dose 1 DROP; Start 07/29/16 at 21:00 Valproate Sodium 500 mg 500 mg Q12 GTB Last administered on 08/09/16 07:52; Admin Dose 500 MG; Start 07/29/16 at 21:00 Potassium Chloride/Sodium Chloride (03/10 NS + KCl 20 Meq) 1,000 ml @ 50 mls/hr Q20H IV Last administered on 08/08/16 21:50; Admin Dose 50 MLS/HR; Start at 14:30 Enoxaparin Sodium (Lovenox) 30 mg DAILY SC Last administered on 08/07/16 09:40 ; Admin Dose 30 MG; Start 07/31/16 at 09:00; Status Future Hold Lansoprazole (Prevacid) 30 mg DAILY@06 GTB Last administered on 08/09/16 05:44 ; Admin Dose 30 MG; Start 08/04/16 at 06:00 DARCI TERAN 3, 2017 12:06
--- NOTE | 2016-08-09 15:54 | PN ---
Date/Time of Note Date/Time of Note DATE: 08/09/16 TIME: 15:52 Assessment/Plan VTE Prophylaxis VTE Prophylaxis Intervention: other Lines/Catheters [facility] IV Urinary Cath still in place: Yes Assessment/Plan Assessment/Plan - Paroxysmal atrial fibrillation with slow ventricular response. Currently sinus bradycardia. - per Dr. Branch in cardiology consultation. SP Pacemaker implant yesterday. - Hypothyroidism. TSH is within normal limits, continue current dose of Synthroid. - Seizure disorder. Continue valproic acid. - History of cerebrovascular accident. Continue aspirin. - Ventilator-dependent respiratory failure. Dr. Paredes is following in pulmonology consultation. - Dysphagia with G-tube. Continue G-tube feeding, monitor residual. - History of chronic obstructive pulmonary disease. Continue Lovenox for deep venous thrombosis prophylaxis and Protonix for peptic ulcer disease prophylaxis. Further recommendations based on clinical course. Plan of care discussed with Dr. Pierre. Exam/Review of Systems Vital Signs Vitals Vital Signs Date Time Temp Pulse Resp B/P Pulse Ox O2 Delivery O2 Flow Rate FiO2 08/09/16 15:00 67 18 96 35 08/09/16 11:40 98.8 152/65 08/06/16 00:00 Mechanical Ventilator Intake and Output 08/08/16 08/08/16 08/09/16 15:00 23:00 07:00 Intake Total 125 ml 1100 ml Output Total 1000 ml Balance 125 ml 100 ml Exam Respiratory: diminished breath sounds, normal air movement Cardiovascular: nl pulses Gastrointestinal: non-tender, soft Extremities: normal pulses Skin: nl turgor Lymph: nontender Results Result Diagram: 08/08/1662108/08/16621 Medications Medications Current Medications Acetaminophen (Tylenol Liquid) 650 mg Q6H PRN GTB PAIN; Start 07/29/16 at 17:30 Brimonidine Tartrate (Alphagan P 0.15%) 1 drop Q8 BOTH EYES Last administered on 08/09/16 15:01; Admin Dose 1 DROP; Start 07/29/16 at 22:00 Docusate Sodium (Colace Liquid Cup) 100 mg DAILY GTB Last administered on 07:52; Admin Dose 100 MG; Start 07/30/16 at 09:00 Midodrine (Proamatine) 5 mg Q8 GTB Last administered on 08/07/16 14:04; Admin Dose 5 MG; Start 07/29/16 at 22:00 Senna (Senokot) 1 tab QHS GTB Last administered on 08/08/16 21:49; Admin Dose 1 TAB; Start 07/29/16 at 21:00 Latanoprost (Xalatan) 1 drop QHS BOTH EYES Last administered on 08/08/16 21:49 ; Admin Dose 1 DROP; Start 07/29/16 at 21:00 Valproate Sodium 500 mg 500 mg Q12 GTB Last administered on 08/09/16 07:52; Admin Dose 500 MG; Start 07/29/16 at 21:00 Potassium Chloride/Sodium Chloride (03/10 NS + KCl 20 Meq) 1,000 ml @ 50 mls/hr Q20H IV Last administered on 08/08/16 21:50; Admin Dose 50 MLS/HR; Start at 14:30 Enoxaparin Sodium (Lovenox) 30 mg DAILY SC Last administered on 08/07/16 09:40 ; Admin Dose 30 MG; Start 07/31/16 at 09:00; Status Future Hold Lansoprazole (Prevacid) 30 mg DAILY@06 GTB Last administered on 08/09/16 05:44 ; Admin Dose 30 MG; Start 08/04/16 at 06:00 AMNA CABRERA Aug 09, 2016 15:54
[2016-08-09] MEDS: 1/2 NS + KCL 20 MEQ 1,000 ML IV SCH (19:02)
[2016-08-09] MEDS: SENNA TAB GTB SCH (21:10)
[2016-08-09] MEDS: LATANOPROST 0.005% 2.5 ML OPH BOTH EYES SCH (21:11)
[2016-08-10] VITALS (24 sets, daily range): BP systolic 102–133; BP diastolic 51–73; PULSE 59–69; RESP 8–20
[2016-08-10] MEDS: IPRATROPIUM (HFA) 12.9 GM INHALER INH SCH ×4 (02:12→20:37)
[2016-08-10] MEDS: ALBUTEROL 18 GM INHALER INH SCH ×4 (02:12→20:37)
[2016-08-10] MEDS: MIDODRINE 5 MG TAB GTB SCH ×3 (06:27→22:18)
[2016-08-10] MEDS: LANSOPRAZOLE 30 MG CAP GTB SCH (06:27)
[2016-08-10] MEDS: LEVOTHYROXINE 175 MCG TAB GTB SCH (06:27)
[2016-08-10] MEDS: BRIMONIDINE 0.15% 5 ML OPH BOTH EYES SCH ×3 (06:28→22:18)
[2016-08-10 07:12] LABS: ADD SCAN DIFF NO
[2016-08-10 07:15] LABS: BASOPHILS % 0.2 % (0.0-2.0); EOSINOPHILS # 0.1 10^3/ul (0.0-0.5); EOSINOPHILS % 0.9 % (0.0-7.0); HEMATOCRIT 39.5 % (42.0-52.0); HEMOGLOBIN 12.2 g/dl (14.0-18.0); LYMPHOCYTES # 1.4 10^3/ul (0.8-2.9); LYMPHOCYTES % 24.6 % (15.0-51.0); MEAN CORPUSCULAR HEMOGLOBIN 30.3 pg (29.0-33.0); MEAN CORPUSCULAR HGB CONC 30.9 g/dl (32.0-37.0); MEAN CORPUSCULAR VOLUME 98.3 fl (82.0-101.0); MEAN PLATELET VOLUME 11.8 fl (7.4-10.4); MONOCYTE # 0.4 10^3/ul (0.3-0.9); MONOCYTES % 7.9 % (0.0-11.0); NEUTROPHIL # 3.7 10^3/ul (1.6-7.5); PLATELET COUNT 145 10^3/UL (140-415); RED BLOOD COUNT 4.02 10^6/ul (4.70-6.10); RED CELL DISTRIBUTION WIDTH 14.7 % (11.5-14.5); WHITE BLOOD COUNT 5.6 10^3/ul (4.8-10.8)
[2016-08-10 07:46] LABS: CALCIUM 8.8 mg/dl (8.4-10.2); CREATININE 0.8 mg/dl (0.61-1.24); POTASSIUM 4.1 mmol/L (3.5-5.1)
[2016-08-10] MEDS: DOCUSATE SODIUM 10 MG/ML (10ML CUP) GTB SCH (09:46)
[2016-08-10] MEDS: VALPROIC ACID LIQUID CUP 250 MG/5 ML CUP GTB SCH ×2 (09:46→22:18)
--- NOTE | 2016-08-10 11:12 | CONS ---
Date/Time of Note Date/Time of Note DATE: 08/10/16 TIME: 11:10 Assessment/Plan Assessment/Plan Additional Assessment/Plan 1. Bradycardia with EKG and telemetry, most consistent with sinus bradycardia at this time.-to low 30'sovernight Currently 40's-50's. NL Free T4- now s/p pacer, intermittently paced, site looks well. PACER CHECK good fxn yesterday. 2. Questionable paroxysmal atrial fibrillation and from EKG reportedly done at chronic care facility- now in sinus - will monitor - sinu snow 3. Abnormal electrocardiogram with nonspecific ST-T abnormalities, assess for acute coronary syndrome.-negative trop x 3/Echo this admit NL EF55-60/DD/MR/TR 4. Hypotension, chronic on Midodrine - BP better now. 5. Respiratory failure, chronic, status post tracheostomy. 6. Dysphagia status post G-tube. 7. History anoxic encephalopathy. 8. History of hypothyroidism with currently normal TSH. 9. Anemia, mild. Consultation Date/Type/Reason Admit Date/Time July 30, 2016 at 15:03 Type of Consultation: PULM Referring Provider: HALLE FLOYD MD 24 HR Interval Summary Free Text/Dictation NO acute change - good pacer function - will monitor clinically ROS: No fever, no chills, no nausea, no vomiting, no diarrhea/constipation No recent weight changes No chest pain, no PND, no orthopnea No dizziness, blurred vision No thirst, no heat or cold intolerance (per nurse) Exam/Review of Systems Vital Signs Vitals Vital Signs Date Time Temp Pulse Resp B/P Pulse Ox O2 Delivery O2 Flow Rate FiO2 08/10/16 09:20 65 18 96 35 08/10/16 08:00 98.4 110/51 Intake and Output 08/09/16 08/09/16 08/10/16 15:00 23:00 07:00 Intake Total 1200 ml 1800 ml Output Total 1000 ml 1100 ml Balance 200 ml 700 ml Exam General: WN/WD/NAD, AOx 0 HEENT: Unicetric/atraumatic/EOMI (does not follow commands) NECK: tarch, no thyromegaly Lymph: no lymphadenopathy HEART: regular with no S3, II/ systolic murmur at apex, pacer R side - site looks well LUNGS: Coarse sounds ABD: soft, NT, ND, +BS : Intact Neuro: non focal SKIN: chronic changes EXT: trace edema Results Result Diagram: 08/10/16 0545 08/10/16 0545 Results 24 hrs Laboratory Tests Test 08/10/16 05:45 White Blood Count 5.6 # Red Blood Count 4.02 L Hemoglobin 12.2 L Hematocrit 39.5 L Mean Corpuscular Volume 98.3 Mean Corpuscular Hemoglobin 30.3 Mean Corpuscular Hemoglobin Concent 30.9 L Red Cell Distribution Width 14.7 H Platelet Count 145 Mean Platelet Volume 11.8 H Neutrophils % 66.0 Lymphocytes % 24.6 Monocytes % 7.9 Eosinophils % 0.9 Basophils % 0.2 Nucleated Red Blood Cells % 0.0 Neutrophils # 3.7 Lymphocytes # 1.4 Monocytes # 0.4 Eosinophils # 0.1 Basophils # 0.0 Nucleated Red Blood Cells # 0.0 Sodium Level 143 Potassium Level 4.1 Chloride Level 111 H Carbon Dioxide Level 22 Anion Gap 14 Blood Urea Nitrogen 17 Creatinine 0.80 Glucose Level 117 Calcium Level 8.8 Medications Medications Current Medications Acetaminophen (Tylenol Liquid) 650 mg Q6H PRN GTB PAIN; Start 07/29/16 at 17:30 Brimonidine Tartrate (Alphagan P 0.15%) 1 drop Q8 BOTH EYES Last administered on 08/10/16 06:28; Admin Dose 1 DROP; Start 07/29/16 at 22:00 Docusate Sodium (Colace Liquid Cup) 100 mg DAILY GTB Last administered on 09:46; Admin Dose 100 MG; Start 07/30/16 at 09:00 Midodrine (Proamatine) 5 mg Q8 GTB Last administered on 08/10/16 06:27; Admin Dose 5 MG; Start 07/29/16 at 22:00 Senna (Senokot) 1 tab QHS GTB Last administered on 08/09/16 21:10; Admin Dose 1 TAB; Start 07/29/16 at 21:00 Latanoprost (Xalatan) 1 drop QHS BOTH EYES Last administered on 08/09/16 21:11 ; Admin Dose 1 DROP; Start 07/29/16 at 21:00 Valproate Sodium 500 mg 500 mg Q12 GTB Last administered on 08/10/16 09:46; Admin Dose 500 MG; Start 07/29/16 at 21:00 Potassium Chloride/Sodium Chloride (1/2 NS + KCl 20 Meq) 1,000 ml @ 50 mls/hr Q20H IV Last administered on 08/09/16 19:02; Admin Dose 50 MLS/HR; Start at 14:30 Enoxaparin Sodium (Lovenox) 30 mg DAILY SC Last administered on 08/07/16 09:40 ; Admin Dose 30 MG; Start 07/31/16 at 09:00; Status Future Hold Lansoprazole (Prevacid) 30 mg DAILY@06 GTB Last administered on 08/10/16 06:27 ; Admin Dose 30 MG; Start 08/04/16 at 06:00 SOY LECHUGA MD Aug 10, 2016 11:11
--- NOTE | 2016-08-10 14:18 | CONS ---
Date/Time of Note Date/Time of Note DATE: 08/10/16 TIME: 14:17 Assessment/Plan Assessment/Plan Additional Assessment/Plan Assessment recommendations; next 1. Patient admitted for cardiac arrhythmia subsequently requiring a pacemaker. 2. Advanced anoxic brain injury, patient remains ventilator dependent. Continue current treatment. Patient can be discharged to half-way facility. Consultation Date/Type/Reason Admit Date/Time July 30, 2016 at 15:03 Type of Consultation: PULM Referring Provider: HALLE FLOYD MD 24 HR Interval Summary Free Text/Dictation Patient condition is stable. Remains awake but does not follow any commands due to severe anoxic brain injury. Has remained hemodynamically stable. General exam; elderly male, on ventilator via tracheostomy currently in no distress. Exam/Review of Systems Vital Signs Vitals Vital Signs Date Time Temp Pulse Resp B/P Pulse Ox O2 Delivery O2 Flow Rate FiO2 08/10/16 13:00 60 18 96 35 08/10/16 11:53 98.0 102/59 Intake and Output 08/09/16 08/09/16 08/10/16 15:00 23:00 07:00 Intake Total 1200 ml 1800 ml Output Total 1000 ml 1100 ml Balance 200 ml 700 ml Exam HEENT examination; supple neck, no JVD. No lymphadenopathy. Midline trachea. No thyromegaly. Tracheostomy placed with clean insertion site. Chest examination; clear to auscultation. S1-S2 audible, no murmurs. There is a pacemaker in the left chest wall. Abdomen examination; soft, G-tube in place. Bowel sounds audible. No organomegaly. Extremity examination; no peripheral edema. Patient has severe flexion contractures involving all 4 extremities. DIRECTOR OF OCCUPATIONAL HEALTH examination; patient is awake but does not follow any commands. Results Result Diagram: 08/10/16 0545 08/10/16 0545 Results 24 hrs Laboratory Tests Test 08/10/16 05:45 White Blood Count 5.6 # Red Blood Count 4.02 L Hemoglobin 12.2 L Hematocrit 39.5 L Mean Corpuscular Volume 98.3 Mean Corpuscular Hemoglobin 30.3 Mean Corpuscular Hemoglobin Concent 30.9 L Red Cell Distribution Width 14.7 H Platelet Count 145 Mean Platelet Volume 11.8 H Neutrophils % 66.0 Lymphocytes % 24.6 Monocytes % 7.9 Eosinophils % 0.9 Basophils % 0.2 Nucleated Red Blood Cells % 0.0 Neutrophils # 3.7 Lymphocytes # 1.4 Monocytes # 0.4 Eosinophils # 0.1 Basophils # 0.0 Nucleated Red Blood Cells # 0.0 Sodium Level 143 Potassium Level 4.1 Chloride Level 111 H Carbon Dioxide Level 22 Anion Gap 14 Blood Urea Nitrogen 17 Creatinine 0.80 Glucose Level 117 Calcium Level 8.8 Medications Medications Current Medications Acetaminophen (Tylenol Liquid) 650 mg Q6H PRN GTB PAIN; Start 07/29/16 at 17:30 Brimonidine Tartrate (Alphagan P 0.15%) 1 drop Q8 BOTH EYES Last administered on 08/10/16 06:28; Admin Dose 1 DROP; Start 07/29/16 at 22:00 Docusate Sodium (Colace Liquid Cup) 100 mg DAILY GTB Last administered on 09:46; Admin Dose 100 MG; Start 07/30/16 at 09:00 Midodrine (Proamatine) 5 mg Q8 GTB Last administered on 08/10/16 06:27; Admin Dose 5 MG; Start 07/29/16 at 22:00 Senna (Senokot) 1 tab QHS GTB Last administered on 08/09/16 21:10; Admin Dose 1 TAB; Start 07/29/16 at 21:00 Latanoprost (Xalatan) 1 drop QHS BOTH EYES Last administered on 08/09/16 21:11 ; Admin Dose 1 DROP; Start 07/29/16 at 21:00 Valproate Sodium 500 mg 500 mg Q12 GTB Last administered on 08/10/16 09:46; Admin Dose 500 MG; Start 07/29/16 at 21:00 Potassium Chloride/Sodium Chloride (1/2 NS + KCl 20 Meq) 1,000 ml @ 50 mls/hr Q20H IV Last administered on 08/09/16 19:02; Admin Dose 50 MLS/HR; Start at 14:30 Enoxaparin Sodium (Lovenox) 30 mg DAILY SC Last administered on 08/07/16 09:40 ; Admin Dose 30 MG; Start 07/31/16 at 09:00; Status Future Hold Lansoprazole (Prevacid) 30 mg DAILY@06 GTB Last administered on 08/10/16 06:27 ; Admin Dose 30 MG; Start 08/04/16 at 06:00 DARCI TERAN Aug 10, 2016 14:18
[2016-08-10] MEDS: 1/2 NS + KCL 20 MEQ 1,000 ML IV SCH (14:58)
--- NOTE | 2016-08-10 16:16 | PN ---
Date/Time of Note Date/Time of Note DATE: 08/10/16 TIME: 16:14 Assessment/Plan Lines/Catheters IV C[facility] Type (from [facility]): Peripheral IV Urinary Cath still in place: Yes Assessment/Plan Assessment/Plan - Paroxysmal atrial fibrillation with slow ventricular response. Currently sinus bradycardia. - per Dr. Branch in cardiology consultation. SP Pacemaker implant yesterday. - Hypothyroidism. TSH is within normal limits, continue current dose of Synthroid. - Seizure disorder. Continue valproic acid. - seizure precautions - History of cerebrovascular accident. Continue aspirin. - Ventilator-dependent respiratory failure. Dr. Paredes is following in pulmonology consultation. - Dysphagia with G-tube. Continue G-tube feeding, monitor residual. - aspiration precautions - History of chronic obstructive pulmonary disease. Continue Lovenox for deep venous thrombosis prophylaxis and Protonix for peptic ulcer disease prophylaxis. Further recommendations based on clinical course. Plan of care discussed with Dr. Pierre. Exam/Review of Systems Vital Signs Vitals Vital Signs Date Time Temp Pulse Resp B/P Pulse Ox O2 Delivery O2 Flow Rate FiO2 08/10/16 15:32 98.8 70 18 106/60 96 08/10/16 15:15 35 Intake and Output 08/09/16 08/09/16 08/10/16 15:00 23:00 07:00 Intake Total 1200 ml 1800 ml Output Total 1000 ml 1100 ml Balance 200 ml 700 ml Exam Neck: supple Respiratory: clear to auscultation, normal air movement Cardiovascular: nl pulses, other (sp pacemaker insertion- 08/08/2016) Gastrointestinal: non-tender, soft Neurological: lethargic, unresponsive Results Result Diagram: 08/10/16 0545 08/10/16 0545 Results 24 hrs Laboratory Tests Test 08/10/16 05:45 White Blood Count 5.6 # Red Blood Count 4.02 L Hemoglobin 12.2 L Hematocrit 39.5 L Mean Corpuscular Volume 98.3 Mean Corpuscular Hemoglobin 30.3 Mean Corpuscular Hemoglobin Concent 30.9 L Red Cell Distribution Width 14.7 H Platelet Count 145 Mean Platelet Volume 11.8 H Neutrophils % 66.0 Lymphocytes % 24.6 Monocytes % 7.9 Eosinophils % 0.9 Basophils % 0.2 Nucleated Red Blood Cells % 0.0 Neutrophils # 3.7 Lymphocytes # 1.4 Monocytes # 0.4 Eosinophils # 0.1 Basophils # 0.0 Nucleated Red Blood Cells # 0.0 Sodium Level 143 Potassium Level 4.1 Chloride Level 111 H Carbon Dioxide Level 22 Anion Gap 14 Blood Urea Nitrogen 17 Creatinine 0.80 Glucose Level 117 Calcium Level 8.8 Medications Medications Current Medications Acetaminophen (Tylenol Liquid) 650 mg Q6H PRN GTB PAIN; Start 07/29/16 at 17:30 Brimonidine Tartrate (Alphagan P 0.15%) 1 drop Q8 BOTH EYES Last administered on 08/10/16 14:58; Admin Dose 1 DROP; Start 07/29/16 at 22:00 Docusate Sodium (Colace Liquid Cup) 100 mg DAILY GTB Last administered on 09:46; Admin Dose 100 MG; Start 07/30/16 at 09:00 Midodrine (Proamatine) 5 mg Q8 GTB Last administered on 08/10/16 06:27; Admin Dose 5 MG; Start 07/29/16 at 22:00 Senna (Senokot) 1 tab QHS GTB Last administered on 08/09/16 21:10; Admin Dose 1 TAB; Start 07/29/16 at 21:00 Latanoprost (Xalatan) 1 drop QHS BOTH EYES Last administered on 08/09/16 21:11 ; Admin Dose 1 DROP; Start 07/29/16 at 21:00 Valproate Sodium 500 mg 500 mg Q12 GTB Last administered on 08/10/16 09:46; Admin Dose 500 MG; Start 07/29/16 at 21:00 Potassium Chloride/Sodium Chloride (1/2 NS + KCl 20 Meq) 1,000 ml @ 50 mls/hr Q20H IV Last administered on 08/10/16 14:58; Admin Dose 50 MLS/HR; Start at 14:30 Enoxaparin Sodium (Lovenox) 30 mg DAILY SC Last administered on 08/07/16 09:40 ; Admin Dose 30 MG; Start 07/31/16 at 09:00; Status Future Hold Lansoprazole (Prevacid) 30 mg DAILY@06 GTB Last administered on 08/10/16 06:27 ; Admin Dose 30 MG; Start 08/04/16 at 06:00 AMNA CABRERA Aug 10, 2016 16:16
[2016-08-10] MEDS: SENNA TAB GTB SCH (22:18)
[2016-08-10] MEDS: LATANOPROST 0.005% 2.5 ML OPH BOTH EYES SCH (22:19)
[2016-08-11] VITALS (17 sets, daily range): BP systolic 92–108; BP diastolic 52–67; PULSE 60–66; RESP 18–24
[2016-08-11] MEDS: IPRATROPIUM (HFA) 12.9 GM INHALER INH SCH ×3 (01:00→13:44)
[2016-08-11] MEDS: ALBUTEROL 18 GM INHALER INH SCH ×3 (01:00→13:44)
[2016-08-11] MEDS: LEVOTHYROXINE 175 MCG TAB GTB SCH (05:30)
[2016-08-11] MEDS: LANSOPRAZOLE 30 MG CAP GTB SCH (05:31)
[2016-08-11] MEDS: BRIMONIDINE 0.15% 5 ML OPH BOTH EYES SCH ×2 (05:31→13:06)
[2016-08-11] MEDS: MIDODRINE 5 MG TAB GTB SCH ×2 (05:31→13:06)
[2016-08-11 07:08] LABS: ADD SCAN DIFF NO
[2016-08-11 07:13] LABS: BASOPHILS % 0.4 % (0.0-2.0); EOSINOPHILS # 0.1 10^3/ul (0.0-0.5); EOSINOPHILS % 2.4 % (0.0-7.0); HEMOGLOBIN 12.9 g/dl (14.0-18.0); LYMPHOCYTES # 1.6 10^3/ul (0.8-2.9); MEAN CORPUSCULAR HEMOGLOBIN 31.3 pg (29.0-33.0); MEAN CORPUSCULAR HGB CONC 31.5 g/dl (32.0-37.0); MEAN CORPUSCULAR VOLUME 99.5 fl (82.0-101.0); MEAN PLATELET VOLUME 12.3 fl (7.4-10.4); MONOCYTE # 0.4 10^3/ul (0.3-0.9); MONOCYTES % 8.3 % (0.0-11.0); NEUTROPHIL # 2.5 10^3/ul (1.6-7.5); NEUTROPHILS % 54.7 % (39.0-77.0); PLATELET COUNT 141 10^3/UL (140-415); RED BLOOD COUNT 4.12 10^6/ul (4.70-6.10); RED CELL DISTRIBUTION WIDTH 14.6 % (11.5-14.5); WHITE BLOOD COUNT 4.6 10^3/ul (4.8-10.8)
[2016-08-11] MEDS: VALPROIC ACID LIQUID CUP 250 MG/5 ML CUP GTB SCH (08:46)
[2016-08-11] MEDS: 1/2 NS + KCL 20 MEQ 1,000 ML IV SCH (08:46)
[2016-08-11] MEDS: DOCUSATE SODIUM 10 MG/ML (10ML CUP) GTB SCH (08:46)
--- NOTE | 2016-08-11 09:12 | SP ---
DATE OF PROCEDURE: 08/08/2016 REFERRING PHYSICIANS: Dr. Floyd and Dr. Branch REASON FOR IMPLANTATION: Sick sinus syndrome. POST-PROCEDURE DIAGNOSES: ____. PROCEDURES: 1. Upper extremity venogram. 2. Fluoroscopy with interpretation. 3. Single chamber pacemaker placement. DESCRIPTION OF PROCEDURE: The consent was obtained from the family. The [facility] in fasting condition. Anesthesiologist supervised sedation. Patient has a trach and t he left side of the chest was prepped and draped in usual sterile fashion, 1% lidocaine was used for local analgesia. Using #10 scalpel, a 3 cm incision was made. Using cautery and blunt dissection, the pocket was created. Using upper extremity venogram was performed to assess the patency. Using modified Seldinger technique, the subclavian vein was cannulated and J-wire passed easily. From th ere, using 9-Micronesian sheath at the base, RV lead was advanced to RV apex and actively fixed inside th e apex. The sheath was pulled away and the lead was sutured to the muscle with 0 Ethibond sutures. The lead was attached to the generator. The entire system was placed inside the pocket after the p ocket was irrigated with antibiotic solution. The skin was closed in multiple layers of 2-0 Vicryl sutures. Steri-Strips were applied to the incision. The patient tolerated procedure well. He is g oing to have a chest x-ray to rule out pneumothorax, left arm sling and continuous antibiotic therap y. I would like to thank Dr. Floyd and Dr. Branch for referring this patient for my evaluation. DEVICE INFORMATION: The pacemaker is [employer] MRI pacemaker, serial #[id number]. RV lead is [employer] Tendril MRI [place] 1200____ 58 cm lead, serial number [id number], placed in th e RV apex. Acute threshold R-wave was 4.9 millivolts, lead impedance 180 ohms, threshold 0.75 volts at 0.4 msec. Dictated By: SOY LECHUGA MD ML/NTS Conf#: [id number] DID#: [id number] CC: HALLE FLOYD MD; YUSUF BRANCH MD;*EndCC*
[2016-08-11 09:35] LABS: CREATININE 0.73 mg/dl (0.61-1.24); POTASSIUM 4.5 mmol/L (3.5-5.1)
--- NOTE | 2016-08-11 12:53 | CONS ---
Date/Time of Note Date/Time of Note DATE: 08/11/16 TIME: 12:52 Consult Date/Type/Reason Admit Date/Time July 30, 2016 at 15:03 Type of Consultation: PULM Ordering Provider: HALLE FLOYD MD Subjective Status post pacemaker placement clinically unchanged. Objective Vital Signs Date Time Temp Pulse Resp B/P Pulse Ox O2 Delivery O2 Flow Rate FiO2 08/11/16 12:48 66 08/11/16 11:15 18 95 35 08/11/16 11:06 97.6 92/58 Intake and Output 08/10/16 08/10/16 08/11/16 15:00 23:00 07:00 Intake Total 1200 ml 1800 ml Output Total 1000 ml 1250 ml Balance 200 ml 550 ml Exam PHYSICAL EXAMINATION GENERAL: Elderly gentleman, on mechanical ventilation via tracheostomy VITAL SIGNS: see below. HEENT: Pupils equal, round, and reactive to light. Tracheostomy site clean and intact. CARDIAC: S1, S2, 1/6 systolic ejection murmur CHEST: Diminished air entry bilaterally. ABDOMEN: Mildly distended. Bowel sounds present no guarding or rebound EXTREMITIES: No cyanosis, clubbing edema +1 NEUROLOGIC: Generalized weakness Results/Medications Result Diagram: 08/11/16 0521 08/11/16 0750 Results 24 hrs Laboratory Tests Test 08/11/16 05:21 08/11/16 07:50 White Blood Count 4.6 L Red Blood Count 4.12 L Hemoglobin 12.9 L Hematocrit 41.0 L Mean Corpuscular Volume 99.5 Mean Corpuscular Hemoglobin 31.3 Mean Corpuscular Hemoglobin Concent 31.5 L Red Cell Distribution Width 14.6 H Platelet Count 141 Mean Platelet Volume 12.3 H Neutrophils % 54.7 Lymphocytes % 34.0 Monocytes % 8.3 Eosinophils % 2.4 Basophils % 0.4 Nucleated Red Blood Cells % 0.0 Neutrophils # 2.5 Lymphocytes # 1.6 Monocytes # 0.4 Eosinophils # 0.1 Basophils # 0.0 Nucleated Red Blood Cells # 0.0 Sodium Level 144 Potassium Level 4.5 Chloride Level 112 H Carbon Dioxide Level 22 Anion Gap 15 Blood Urea Nitrogen 18 Creatinine 0.73 Glucose Level 110 Calcium Level 9.0 Medications Current Medications Acetaminophen (Tylenol Liquid) 650 mg Q6H PRN GTB PAIN; Start 07/29/16 at 17:30 Brimonidine Tartrate (Alphagan P 0.15%) 1 drop Q8 BOTH EYES Last administered on 08/11/16 05:31; Admin Dose 1 DROP; Start 07/29/16 at 22:00 Docusate Sodium (Colace Liquid Cup) 100 mg DAILY GTB Last administered on 08:46; Admin Dose 100 MG; Start 07/30/16 at 09:00 Midodrine (Proamatine) 5 mg Q8 GTB Last administered on 08/11/16 05:31; Admin Dose 5 MG; Start 07/29/16 at 22:00 Senna (Senokot) 1 tab QHS GTB Last administered on 08/10/16 22:18; Admin Dose 1 TAB; Start 07/29/16 at 21:00 Latanoprost (Xalatan) 1 drop QHS BOTH EYES Last administered on 08/10/16 22:19 ; Admin Dose 1 DROP; Start 07/29/16 at 21:00 Valproate Sodium 500 mg 500 mg Q12 GTB Last administered on 08/11/16 08:46; Admin Dose 500 MG; Start 07/29/16 at 21:00 Potassium Chloride/Sodium Chloride (1/2 NS + KCl 20 Meq) 1,000 ml @ 50 mls/hr Q20H IV Last administered on 08/11/16 08:46; Admin Dose 50 MLS/HR; Start at 14:30 Enoxaparin Sodium (Lovenox) 30 mg DAILY SC Last administered on 08/07/16 09:40 ; Admin Dose 30 MG; Start 07/31/16 at 09:00; Status Future Hold Lansoprazole (Prevacid) 30 mg DAILY@06 GTB Last administered on 08/11/16 05:31 ; Admin Dose 30 MG; Start 08/04/16 at 06:00 Assessment/Plan Chief Complaint/Hosp Course IMPRESSION: 1. Ventilator dependent respiratory failure. 2. History of Afib with slow VR/Sinus tyler now status post pacemaker placement 3. Anoxic encephalopathy. RECS: 1. Vent support. 2. BD's/CPT 3. Follow tele 4. TF/Free H20 5. Pacemaker post wound care. Problems: KINGS MILLER MD, [facility] Aug 11, 2016 12:53
--- NOTE | 2016-08-11 13:44 | CONS ---
Date/Time of Note Date/Time of Note DATE: 08/11/16 TIME: 13:41 Assessment/Plan Assessment/Plan Chief Complaint/Hosp Course IMPRESSION: 1. Bradycardia with EKG and telemetry, most consistent with sinus bradycardia at this time.-to low 30'sovernight Currently 40's-50's. NL Free T4. Now post- op s/p PPM implant with V pacing most of the time 2. Questionable paroxysmal atrial fibrillation and from EKG reportedly done at chronic care facility. 3. Abnormal electrocardiogram with nonspecific ST-T abnormalities, assess for acute coronary syndrome.-negative trop x 3/Echo this admit NL EF55-60/DD/MR/TR 4. Hypotension, chronic on Midodrine. 5. Respiratory failure, chronic, status post tracheostomy. 6. Dysphagia status post G-tube. 7. History anoxic encephalopathy. 8. History of hypothyroidism with currently normal TSH. 9. Anemia, mild. Recc: -Tele -Continue local wound care of pacer site -Continue midodrine BP support -Contnue synthroid -D/C planning Problems: Consultation Date/Type/Reason Admit Date/Time July 30, 2016 at 15:03 Initial Consult Date 07/30/2016 Type of Consultation: Cardiology Reason for Consultation bradycardia Referring Provider: HALLE FLOYD MD Exam/Review of Systems Vital Signs Vitals Vital Signs Date Time Temp Pulse Resp B/P Pulse Ox O2 Delivery O2 Flow Rate FiO2 08/11/16 13:00 65 24 97 35 08/11/16 11:06 97.6 92/58 Intake and Output 08/10/16 08/10/16 08/11/16 15:00 23:00 07:00 Intake Total 1200 ml 1800 ml Output Total 1000 ml 1250 ml Balance 200 ml 550 ml Exam Review of Systems: CONSTITUTIONAL: No fevers, chills. PULMONARY: trached CARDIOVASCULAR: No obvious chest pain/palpitations GASTROINTESTINAL: No nausea/vomiting. GENITOURINARY: No hematuria/dysuria. MUSCULOSKELETAL: No obvious myagias/arthalgias. PSYCHIATRIC: NO documented depression. NEUROLOGIC: encephalopathy Constitutional: other (emcephalopathic) Neck: jvd (9 cm water), other (trached) Results Result Diagram: 08/11/16 0521 08/11/16 0750 Results 24 hrs Laboratory Tests Test 08/11/16 05:21 08/11/16 07:50 White Blood Count 4.6 L Red Blood Count 4.12 L Hemoglobin 12.9 L Hematocrit 41.0 L Mean Corpuscular Volume 99.5 Mean Corpuscular Hemoglobin 31.3 Mean Corpuscular Hemoglobin Concent 31.5 L Red Cell Distribution Width 14.6 H Platelet Count 141 Mean Platelet Volume 12.3 H Neutrophils % 54.7 Lymphocytes % 34.0 Monocytes % 8.3 Eosinophils % 2.4 Basophils % 0.4 Nucleated Red Blood Cells % 0.0 Neutrophils # 2.5 Lymphocytes # 1.6 Monocytes # 0.4 Eosinophils # 0.1 Basophils # 0.0 Nucleated Red Blood Cells # 0.0 Sodium Level 144 Potassium Level 4.5 Chloride Level 112 H Carbon Dioxide Level 22 Anion Gap 15 Blood Urea Nitrogen 18 Creatinine 0.73 Glucose Level 110 Calcium Level 9.0 Medications Medications Current Medications Acetaminophen (Tylenol Liquid) 650 mg Q6H PRN GTB PAIN; Start 07/29/16 at 17:30 Brimonidine Tartrate (Alphagan P 0.15%) 1 drop Q8 BOTH EYES Last administered on 08/11/16 13:06; Admin Dose 1 DROP; Start 07/29/16 at 22:00 Docusate Sodium (Colace Liquid Cup) 100 mg DAILY GTB Last administered on 08:46; Admin Dose 100 MG; Start 07/30/16 at 09:00 Midodrine (Proamatine) 5 mg Q8 GTB Last administered on 08/11/16 13:06; Admin Dose 5 MG; Start 07/29/16 at 22:00 Senna (Senokot) 1 tab QHS GTB Last administered on 08/10/16 22:18; Admin Dose 1 TAB; Start 07/29/16 at 21:00 Latanoprost (Xalatan) 1 drop QHS BOTH EYES Last administered on 08/10/16 22:19 ; Admin Dose 1 DROP; Start 07/29/16 at 21:00 Valproate Sodium 500 mg 500 mg Q12 GTB Last administered on 08/11/16 08:46; Admin Dose 500 MG; Start 07/29/16 at 21:00 Potassium Chloride/Sodium Chloride (1/2 NS + KCl 20 Meq) 1,000 ml @ 50 mls/hr Q20H IV Last administered on 08/11/16 08:46; Admin Dose 50 MLS/HR; Start at 14:30 Enoxaparin Sodium (Lovenox) 30 mg DAILY SC Last administered on 08/07/16 09:40 ; Admin Dose 30 MG; Start 07/31/16 at 09:00; Status Future Hold Lansoprazole (Prevacid) 30 mg DAILY@06 GTB Last administered on 08/11/16 05:31 ; Admin Dose 30 MG; Start 08/04/16 at 06:00 YUSUF VASQUEZ Aug 11, 2016 13:43
--- NOTE | 2016-08-11 21:37 | DS ---
DATE OF ADMISSION: 07/30/2016 DATE OF DISCHARGE: 08/11/2016 FINAL DIAGNOSES: 1. Sick sinus syndrome, status post permanent pacemaker insertion. 2. Hyperkalemia, resolved. 3. Paroxysmal atrial fibrillation with slow ventricular response. 4. Hypothyroidism. 5. Seizure disorder. 6. History of cerebrovascular accident. 7. Ventilator dependent respiratory failure. 8. Dysphagia with G-tube. 9. History of chronic obstructive pulmonary disease. HOSPITAL COURSE: The patient is a 71-year-old gentleman with history of anoxic encephalopathy, keg varnisher gonzalo ventilator dependent respiratory failure, hypothyroidism, seizure disorder, dysphagia, glaucoma, and chronic hypotension. The patient was noted to have a heart rate being in the low 40s. EKG was done at the subacute unit and was positive for new onset of atrial fibrillation and the patient was brought to [facility] to our emergency room for further evaluation and management. The daryl palomo was diagnosed with new onset of atrial fibrillation with slow ventricular response. The amanda bonilla was admitted for further evaluation and management. HOSPITAL COURSE: The patient was evaluated by Dr. Branch in cardiology consultation. The patient' s blood pressure medication was optimized. The patient continued on valproic acid for seizure disor ki. TSH was checked and was within normal limits. The patient was continued on current dose of Sy nthroid. The patient was also evaluated and followed by Dr. Paredes in pulmonology consultation for vent management. The patient was closely monitored on telemetry floor; however, after all the bloc derrick agents were held, patient continued to have bradycardia with heart rate going into the 30s, alt harrison the patient converted to sinus rhythm. The patient was given Lovenox for deep venous thrombos is prophylaxis. The patient also underwent echocardiogram, which revealed preserved ejection fracti on of 55% to 60%, stage I diastolic dysfunction, and normal left ventricular systolic function. Aft er evaluation, patient underwent permanent pacemaker insertion by Dr. Stanton on 08/08/2016. The joellen story had a pacemaker, which is [employer] MRI pacemaker, serial #[id number]. Subsequent ly, patient was monitored and was in paced rhythm at the rate of 60. The patient had stable vital s igns and no acute events. The patient will be discharged to alf facility. CONDITION ON DISCHARGE: Hemodynamically stable. ACTIVITY: As patient tolerates. DISCHARGE DIET: Continue G-tube feedings. DISCHARGE MEDICATIONS: 1. Tylenol p.r.n. for fever and pain. 2. Brimonidine ophthalmic 1 drop q.8h. 3. Colace. 4. Senna G-tube daily. 5. Atrovent q.6h. 6. Prevacid. 7. Travatan. 8. Synthroid 175 mcg q.a.m. 9. Midodrine 5 mg G-tube 3 times a day. 10. Valproic acid 500 mg G-tube q.12h. RECOMMENDATIONS: The patient is to follow up with Dr. Stanton in 1 to 2 weeks and to follow up with PMD. Interdisciplinary plan of care was established for this patient. Plan of care was discussed with Dr Dio Floyd. Dictated By: BRAYAN HUDSON [employer] FORESTER for HALLE FLOYD MD SR/NTS Conf#: [id number] DID#: [id number] CC: HALLE FLOYD MD;*EndCC*
== END 2016-08-11 17:40 | DRG 243 ==
LOC: E/R 23:50 → TEL 07-29 04:15 → OBSVTOIN 07-30 15:03
PROVIDERS: ADMIT Internal Medicine; ATTEND Internal Medicine
PROC: 5A1955Z Respiratory Ventilation, Greater than 96 Consecutive Hours (ICD-10-PCS; 2016-07-30)
PROC: 0JH604Z Insertion of Pacemaker, Single Chamber into Chest Subcutaneous Tissue and Fascia, Open Approach (ICD-10-PCS; principal; 2016-08-08 14:00)
PROC: 02HK3JZ Insertion of Pacemaker Lead into Right Ventricle, Percutaneous Approach (ICD-10-PCS; 2016-08-08 14:00)
DX: I49.5 Sick sinus syndrome (principal); G93.1 Anoxic brain damage, not elsewhere classified; N17.9 Acute kidney failure, unspecified; Z99.11 Dependence on respirator [ventilator] status; J96.10 Chronic respiratory failure, unspecified whether with hypoxia or hypercapnia; Z93.0 Tracheostomy status; I95.9 Hypotension, unspecified; F03.90 Unspecified dementia, unspecified severity, without behavioral disturbance, psychotic disturbance, mood disturbance, and anxiety; E87.5 Hyperkalemia; I48.0 Paroxysmal atrial fibrillation; Z86.73 Personal history of transient ischemic attack (TIA), and cerebral infarction without residual deficits; F32.9 Major depressive disorder, single episode, unspecified; J44.9 Chronic obstructive pulmonary disease, unspecified; R13.10 Dysphagia, unspecified; Z93.1 Gastrostomy status; E03.9 Hypothyroidism, unspecified; G40.909 Epilepsy, unspecified, not intractable, without status epilepticus; H40.9 Unspecified glaucoma; D64.9 Anemia, unspecified; E66.9 Obesity, unspecified; Z68.33 Body mass index [BMI] 33.0-33.9, adult; E11.9 Type 2 diabetes mellitus without complications
CPT/HCPCS: 36005; 36600; 71010; 80048; 80053; 82803; 83880; 84436; 84439; 84443; 84481; 84484; 85025; 85610; 85730; 87081; 93005; 93306; 93970; 94002; 94003; 94640; G0378; C9113; J0690; J1650; J2250; J3010; J3480; J7030

== ENCOUNTER → 2017-07-02 | Outpatient (CLI) | END | disposition home or self-care (01) ==